=== PATIENT | female | born 1980 | race Caucasian/White ===

== ENCOUNTER 2022-07-26 13:04 | Outpatient (OUT) | payer BC, SELFPAY ==
--- NOTE | 2022-07-26 13:25 | MM_ITS ---
Patient: RENEE REGALADO Exam Date: 07/26/2022 : 1980 Gender:F Ordering : DR Dante Panda . Admission #: [id number] Family : Order #: [id number] CLICK HERE TO VIEW EXAM RADIOLOGY REPORT PROCEDURE: MM TOMOSYNTHESIS SCREENING BI COMPARISON: MG MAMM SCREEN TOOTIE W CAD, 10/13/2019. MAMMO TOOTIE DIAG DIG, 12/24/2010. INDICATIONS: Screening Calculator Name NCI Breast Cancer Risk Assessment Tool 5 Year Breast Cancer Risk 0.70% Lifetime Breast Cancer Risk 8.70% Personal Breast Cancer No Personal Ovarian Cancer No Treatments None Family Cancers Grandfather-paternal with lung cancer at age 70. LOCATION: [facility] BREAST COMPOSITION: Scattered areas fibroglandular density. FINDINGS: DIAGNOSTIC CATEGORY 1--NEGATIVE. RIGHT BREAST: No significant suspicious finding. No significant change has occurred. LEFT BREAST: No significant suspicious finding. No significant change has occurred. RECOMMENDATIONS: ROUTINE MAMMOGRAM AND CLINICAL EVALUATION IN 12 MONTHS. PLEASE NOTE: A NORMAL MAMMOGRAM DOES NOT EXCLUDE THE POSSIBILITY OF BREAST CANCER. A CLINICALLY SUSPICIOUS PALPABLE LUMP SHOULD BE BIOPSIED. Dictated by: Dilan Go M.D. on 07/26/2022 at 15:34 Approved by: Dilan Go M.D. on 07/26/2022 at 15:37
--- NOTE | 2022-07-26 13:57 | MR_ITS ---
[address] [address] Patient Name: RENEE REGALADO MRN: [id number] date: 1980 Sex: F Assigned Patient Location: [facility] Current Patient Location: [facility] Accession/Order Number: [id number] Exam Date: 07/26/2022 14:20 Report Date: 07/26/2022 15:50 At the request of: MERT HARRISON Procedure: MR lumbar spine wo con EXAM: MRI of the lumbar spine without IV gadolinium contrast. REASON FOR EXAM: Lower back pain, pain radiating into lower extremities, lower extremity numbness M51.36 COMPARISON: CT scan dated 08/08/2020 FINDINGS: No lumbar spine fractures, acute malalignment or acute abnormal marrow signal. No spinal canal mass, hematoma or fluid collection. L4-5 degenerative disc changes with disc space narrowing and endplate signal change. L4-5 posterior disc extrusion. No other substantial posterior disc protrusions. Mild grade 1 retrolisthesis of L4 on L5. Moderate L4-5 spinal canal stenosis including stenosis of the lateral recesses bilaterally. No other substantial spinal canal stenosis. Mild left L3-L4 and L4-5 neural foraminal stenoses. Mild right L4-5 neural foraminal stenosis. No other substantial neural foraminal stenoses. Remainder unremarkable. IMPRESSION: L4-L5 disc extrusion causing moderate spinal canal stenosis and stenosis of the lateral recesses. Electronically authenticated by: YOHANA KEARNS Date: 07/26/2022 15:50
== END 2022-07-26 13:05 ==
PROVIDERS: PCP Family Medicine; Visit Provider Family Medicine
DX: Z12.31 Encounter for screening mammogram for malignant neoplasm of breast (principal); M51.36 Other intervertebral disc degeneration, lumbar region; M48.061 Spinal stenosis, lumbar region without neurogenic claudication; Z80.1 Family history of malignant neoplasm of trachea, bronchus and lung
CPT/HCPCS: 72148; 77063; 77067

== ENCOUNTER 2022-08-13 14:09 | Outpatient (OUT) | payer BC, SELFPAY ==
--- NOTE | 2022-08-13 16:08 | CONS_ITS ---
CONSULTATION DATE: ??08/13/2022 TO:? Dante Panda M.D. HISTORY:? Patient presents today complaining of 2-10/10 pain in her lower back, worse on the right side, with right lower extremity discomfort.? She reports the pain as being dull, achy and sharp in character and increased with activities such standing, walking and performing transitioning maneuvers.? She feels most comfortable in the semi-recumbent position. ?She also reports laying in the supine position too long is also uncomfortable.? She denies any change in bowel and bladder habits or new sensorimotor changes in the lower extremities.? MEDICATION:? Current medication list includes Zonegran 50 mg pills, two pills at h.s.; baclofen 10 mg pills, two pills at h.s. and Tylenol p.r.n. EXAM:? Notable for patient having no clinical radiculopathy or myelopathy in the lower extremities.? She had a negative straight leg raise on today?s visit, but she still had a mildly depressed right patellar reflex.? She had very mild myofascial spasm of the lumbar paravertebral muscles. IMPRESSION:? At this time, our impression is patient appears to have chronic pain secondary to improvement in her right L4-L5 radiculopathy.? PLAN;? She reports that she wants to hold off on any surgical consultation at this time.? I have asked her to trial increasing her Zonegran to 50 mg pills, three pills at bedtime as tolerated, and we will see the patient pack in the office in two months? time or sooner if needed. As part of providing excellent, safe, comprehensive care, the following was completed at our patient's visit: 1. A medication reconciliation and review to ensure accurate knowledge of current/active medications, including asking our patients to inform us about any [id number] medications or herbal remedies/nutritional supplements/alternative remedies. 2. A review to specifically ensure our patients have had annual screening for: elevated body mass index (BMI, see intake chart for exact total), tobacco use, screening for depression, and screening for unhealthy alcohol use.? When screening is concerning, patients are provided with education and the specific recommendation to discuss the concerning health issue and treatment options with their primary care provider. ZAIRA
== END 2022-08-13 14:10 ==
PROVIDERS: PCP Family Medicine; Visit Provider Anesthesiology Pain Medicine
DX: M54.16 Radiculopathy, lumbar region (principal); G89.29 Other chronic pain
CPT/HCPCS: G0463

== ENCOUNTER 2022-09-02 11:18 | Emergency (ER) | payer BC, SELFPAY ==
[2022-09-02 11:27] VITALS: BP 155/107; PULSE 95; RESP 18; TEMP 36.9; O2SAT 98; BMI 29.5
--- NOTE | 2022-09-02 11:49 | PC.NURSE ---
pt describes pain to left buttocks down left leg like sciatica, states had MRI's in the past but still don't know what cauases this.
--- NOTE | 2022-09-02 12:07 | ED.GENADUL1 ---
HPI - General Adult General Chief complaint: Extremity Injury, Lower Stated complaint: nerve pain Time Seen by Provider: 09/02/22 11:54 Source: patient Mode of arrival: walk-in Limitations: no limitations History of Present Illness HPI narrative: 42-year-old female presents for pain in her lower back going down her left leg and to a lesser degree the right leg. She's been diagnosed with sciatica and has seen a neurosurgeon in the past who did not recommend surgery. She's been in pain management and she had an MRI recently. She is scheduled to see a new neurosurgeon in a few weeks. The pain is severe and it's gotten worse and now it's going into the left leg. No trauma. No weakness or numbness. No bladder or bowel issues. Related Data Home Medications Medication Instructions Recorded Confirmed baclofen 10 mg tablet 10 mg PO Q12H 09/02/22 09/02/22 citalopram 20 mg tablet 20 mg PO .qhs 09/02/22 09/02/22 zonisamide 50 mg capsule 50 mg PO Q12H 09/02/22 09/02/22 Previous Rx's Medication Instructions Recorded acetaminophen 300 mg-codeine 30 mg 1 tab PO Q6H PRN pain #20 tabs 09/02/22 tablet methocarbamol 500 mg tablet 500 mg PO Q6H PRN pain #20 tabs 09/02/22 prednisone 10 mg tablet See Rx Instructions .Route 09/02/22 .COMPLEX #30 tabs Allergies Allergy/AdvReac Type Severity Reaction Status Date / Time morphine AdvReac Intermediate Verified 09/02/22 11:27 Review of Systems ROS Narrative A ten point review of systems is negative except as noted above. Exam Narrative Exam Narrative: Nurses note and vital signs reviewed and patient is not hypoxic. General: The patient is tearful and appears uncomfortable Skin: Warm, dry, no pallor noted. There is no rash noted. Head: Normocephalic, atraumatic Eye: Normal conjunctiva, no drainage Ears, Nose, Mouth, and Throat: oral mucosa is moist. Nares patent. Cardiovascular: Regular Rate and Rhythm Respiratory: Patient is in no distress, no accessory muscle use, lungs are clear to auscultation, no wheezing, rales or rhonchi Back: non-tender,no bruise or rash GI: nontender Musculoskeletal: The patient has no evidence of calf tenderness, no pitting edema, symmetrical pulses noted bilaterally Neurological: A&O x4, normal speech Psychiatric: Cooperative Constitutional Vital Signs, click to edit/add: Last Vital Signs Temp 98.5 F 09/02/22 11:27 Pulse 69 09/02/22 13:51 Resp 18 09/02/22 11:27 BP 120/80 H 09/02/22 13:40 Pulse Ox 98 09/02/22 11:27 O2 Del Method Room Air 09/02/22 11:27 Course Vital Signs Vital signs: Vital Signs Temperature 98.5 F 09/02/22 11:27 Pulse Rate 95 H 09/02/22 11:27 Respiratory Rate 18 09/02/22 11:27 Blood Pressure 155/107 H 09/02/22 11:27 Pulse Oximetry 98 09/02/22 11:27 Oxygen Delivery Method Room Air 09/02/22 11:27 Temperature 98.5 F 09/02/22 11:27 Pulse Rate 69 09/02/22 13:51 Respiratory Rate 18 09/02/22 11:27 Blood Pressure 120/80 H 09/02/22 13:40 Pulse Oximetry 98 09/02/22 11:27 Oxygen Delivery Method Room Air 09/02/22 11:27 Medical Decision Making MDM Narrative Medical decision making narrative: the patient was given various IV medications and is feeling somewhat improved. She'll be discharged home on Tylenol 3. Options were discussed with her including [place] and she preferred to take Tylenol 3. She'll follow-up with her pain management doctor. Treatment diagnosis and follow-up were discussed thoroughly. recent MRI was reviewed. Differential Diagnosis Differential Diagnosis: sciatica, herniated disc, compression fracture Discharge Plan Discharge Chief Complaint: Extremity Injury, Lower Clinical Impression: Sciatica Patient Disposition: Home, Self-Care Time of Disposition Decision: 14:36 Condition: Good Mode of Transportation: Private Vehicle Prescriptions / Home Meds: New acetaminophen-codeine 300-30 mg tablet 1 tab PO Q6H PRN (Reason: pain) Qty: 20 0RF methocarbamol 500 mg tablet 500 mg PO Q6H PRN (Reason: pain) Qty: 20 0RF prednisone 10 mg tablet See Rx Instructions .ROUTE .COMPLEX Qty: 30 0RF Rx Instructions: four by mouth a day for three days then three by mouth a day for three days then two by mouth daily for three days then one by mouth daily for three days No Action baclofen 10 mg tablet 10 mg PO Q12H citalopram 20 mg tablet 20 mg PO .qhs zonisamide 50 mg capsule 50 mg PO Q12H Instructions: Sciatica (ED) Additional Instructions: follow-up with your pain management doctor Stand Alone Forms: Portal Instructions Referrals: Dante Panda MD [Primary Care Provider] - 1 week
[2022-09-02] MEDS: METHYLPREDNISOLONE SOD SUCC PF 125 MG/2 ML VIAL IVP (12:42)
[2022-09-02] MEDS: LORAZEPAM 2 MG/ML 1 ML VIAL 0.5 MG IV (12:42)
[2022-09-02] MEDS: ORPHENADRINE 60 MG/ 2 ML VIAL IV (12:42)
[2022-09-02] MEDS: KETOROLAC TROMETHAMINE 30 MG/ML VIAL IVP (12:42)
[2022-09-02] MEDS: HYDROMORPHONE HCL 0.5 MG/0.5 ML SYRINGE IV (13:21)
[2022-09-02 13:40] VITALS: BP 120/80
[2022-09-02 13:51] VITALS: PULSE 69
== END 2022-09-02 14:57 | disposition home or self-care (01) ==
PROVIDERS: Emergency Provider Emergency Medicine; PCP Family Medicine
DX: M54.40 Lumbago with sciatica, unspecified side (principal); Z79.899 Other long term (current) drug therapy
CPT/HCPCS: 96374; 96375; 99284; J1170; J2930

== ENCOUNTER 2022-09-10 06:59 | Day surgery (SDC) | payer BC, SELFPAY ==
[2022-09-10 07:08] VITALS: BP 131/85; PULSE 85; RESP 16; TEMP 36.8; O2SAT 97
[2022-09-10] MEDS: LIDOCAINE HCL 2% PF 100 MG/5 ML VIAL 4 ML INJ (07:28)
[2022-09-10] MEDS: METHYLPREDNISOLONE ACETATE 80 MG/ML VIAL INJ (07:28)
[2022-09-10] MEDS: BUPIVACAINE HCL 0.25% PF 25 MG/10 ML VIAL 2 ML INJ (07:28)
[2022-09-10] MEDS: IOHEXOL 240 MG/ML - 10 ML VIAL INJ (07:29)
[2022-09-10] MEDS: 0.9 % SODIUM CHLORIDE 10 ML SYRINGE - SALINE FLUSH 2 ML INJ (07:29)
[2022-09-10 07:32] VITALS: BP 127/89; BP 131/94; PULSE 76; PULSE 77; RESP 20; O2SAT 97
--- NOTE | 2022-09-10 08:13 | P.ON_ITS ---
Date of procedure: 09/10/22 Pre-op diagnosis: LUMBAR RADICULITIS Post-op diagnosis: same Procedure: Epidural injection under fluoroscopic guidance Immediate complications: none Solution used for injection: Marcaine 0.25% 2mL, 2cc Normal saline, Depo-Medrol 80mg Omnipaque 3 mL Anesthesia local 2% lidocaine up to 4ml Timeout process compliant After informed consent obtained. patient brought to the procedure room placed in the prone position. skin overlying the area was prepped and draped in a sterile fashion using betadine. 25 gauge needle used To raise a skin wheel with local anesthetic over the target area identified under fluoroscopy . a 17 gauge Touhy needle Was inserted over the anesthetized area and directed towards the inter- space under fluoroscopic guidance . epidural space was identified with loss of resistance technique to air. needle Tip placement confirmed with injection of contrast solution. Steroid solution was then injected. [place] removed post operatively. Patient transferred to recovery room in stable condition, to be discharged home after meeting Criteria Surgeon: Lalit De Jesus
== END 2022-09-10 07:35 | disposition home or self-care (01) ==
PROVIDERS: PCP Family Medicine; Visit Provider Anesthesiology Pain Medicine
DX: M54.16 Radiculopathy, lumbar region (principal)
CPT/HCPCS: 62323; J1040; Q9966

== ENCOUNTER 2022-09-19 09:00 | Emergency (ER) | payer BC, SELFPAY ==
[2022-09-19 09:03] VITALS: BP 148/90; PULSE 98; RESP 18; TEMP 36.7; O2SAT 96; BMI 29.5
[2022-09-19] MEDS: ONDANSETRON 4 MG RAPDIS TABLET SL (09:32)
--- NOTE | 2022-09-19 09:45 | ED.BACK1 ---
HPI - Back Pain/Injury General Chief Complaint: Back Pain/Injury Stated Complaint: BACK PAIN Time Seen by Provider: 09/19/22 09:28 Source: patient Mode of arrival: Wheelchair History of Present Illness HPI Narrative: Patient states emergency department complaining of low back pain. Patient states she woke up this morning with severe lumbar pain that radiates to bilateral hips. She is also complaining of throbbing to the left lower leg and the lateral aspect. She says she is not had pain like this before. She denies any recent trauma. She has a history of degenerative disc disease disc bulging and was seen by Dr. Cartwright at [facility] And they have advised surgery. The nurse practitioner who saw this patient at the clinic on told the patient that she needed to wait for insurance approval. The patient has been taking OxyContin: At home baclofen and Celebrex along with 1 g of Tylenol. She states she took all this in the morning when she had the pain and it has not helped. She denies any weakness. She denies any urinary, bowel incontinence, retention.She denies any fever, chills, cough, chest pain, shortness of breath. Related Data Home Medications Medication Instructions Recorded Confirmed baclofen 10 mg tablet 10 mg PO Q12H 09/02/22 09/10/22 citalopram 20 mg tablet 20 mg PO .qhs 09/02/22 09/10/22 zonisamide 50 mg capsule 50 mg PO Q12H 09/02/22 09/10/22 amitriptyline 10 mg tablet 20 mg PO .hs 09/10/22 09/10/22 Previous Rx's Medication Instructions Recorded acetaminophen 300 mg-codeine 30 mg 1 tab PO Q6H PRN pain #20 tabs 09/02/22 tablet acetaminophen 300 mg-codeine 30 mg 1 tab PO Q6H PRN pain #20 tabs 09/02/22 tablet methocarbamol 500 mg tablet 500 mg PO Q6H PRN pain #20 tabs 09/02/22 prednisone 10 mg tablet See Rx Instructions .Route 09/02/22 .COMPLEX #30 tabs diazepam 5 mg tablet (Valium) 5 mg PO Q8H PRN muscle spasm 3 09/19/22 days #10 tabs prednisone 10 mg tablet 10 mg PO DAILY #47 tabs 09/19/22 Allergies Allergy/AdvReac Type Severity Reaction Status Date / Time morphine AdvReac Intermediate Verified 09/02/22 11:27 Review of Systems ROS Status of ROS 10 or more systems reviewed and unremarkable except as noted in history and below [facility] Medical History (Updated 09/19/22 @ 15:13 by Cherise Gonzales MD) Surgical History (Updated 09/06/22 @ 14:05 by Arpita Pérez) Exam Narrative Exam Narrative: Nurses notes and vital signs reviewed and patient is not hypoxic. General: Nontoxic, There is some pain, but is not in apparent distress. Skin: Warm, dry, no pallor noted. No Rash Head: Normocephalic, atraumatic. Neck: Supple, non-tender. Eye: Pupils are equal, round and EOMI. No scleral icterus. Ears, Nose, Mouth, and Throat: TM clear, no posterior oropharynx erythema or nasal mucosal hypertrophy, uvula is mid-line Oral mucosa is moist Cardiovascular: Regular Rate and Rhythm without murmur, gallop or rub. Respiratory: No accessory muscle use or respiratory distress. Lungs are clear to auscultation, no wheezing, rales or rhonchi Chest Wall: no tenderness Back: No midline thoracic or lumbar vertebral tenderness. No ecchymosis, erythema, signs of trauma, or infection. No CVA tenderness Musculoskeletal: normal ROM, no calf or popliteal tenderness, no lower extremity edema/swelling GI: Abdomen is soft, non-distended. Normal bowel sounds. No masses appreciated. No tenderness to palpation. No rebound, guarding, or rigidity noted. Neurological: A&O x4. No cranial nerve dysfunction observed. No truncal ataxia. Moves all extremities. Sensation intact. Psychiatric: Cooperative and interactive. Normal mood and affect. Constitutional Vital Signs, click to edit/add: Last Vital Signs Temp 98.0 F 09/19/22 09:03 Pulse 98 H 09/19/22 09:03 Resp 18 09/19/22 09:03 BP 148/90 H 09/19/22 09:03 Pulse Ox 96 09/19/22 09:03 O2 Del Method Room Air 09/19/22 09:03 Course Vital Signs Vital signs: Vital Signs Temperature 98.0 F 09/19/22 09:03 Pulse Rate 98 H 09/19/22 09:03 Respiratory Rate 18 09/19/22 09:03 Blood Pressure 148/90 H 09/19/22 09:03 Pulse Oximetry 96 09/19/22 09:03 Oxygen Delivery Method Room Air 09/19/22 09:03 Temperature 98.0 F 09/19/22 09:03 Pulse Rate 98 H 09/19/22 09:03 Respiratory Rate 18 09/19/22 09:03 Blood Pressure 148/90 H 09/19/22 09:03 Pulse Oximetry 96 09/19/22 09:03 Oxygen Delivery Method Room Air 09/19/22 09:03 MDM - Back Pain/Injury MDM Narrative Medical decision making narrative: Patient was given an injection of Dilaudid, and Norflex. This helped take the edge off the pain the patient stated she was still in a lot of of pain and she is voicing frustration because she does not feel that she can deal with this pain tomorrow. She states her expectation is to be transferred to [facility] to have surgery today. I advised the patient and I cannot guarantee that I can make that expectation however I would speak with the neurosurgeon to see what else we could do besides pain control. The patient was given also Decadron 10 mg IV. She states she just finished a taper of steroids at home. Discussed the patient with the nurse practitioner for Dr. Casiano, Who advised the patient attending physician is in 6 upper surgery. She advised that she can speak with the surgeon when he stumbled with the surgeon and they will devise a plan for the patient. Splint as I can have the patient's pain well controlled with can discharge her home and she will call the patient today after she discusses the plan with the surgeon. She advised she cannot accept the patient in transfer as currently they do not have any beds and It is unlikely that they cannot do surgery today. With the patient and she is very anxious about the pain and wants surgery to be done as soon as possible. I advised the patient I could give her Valium help her relax a little bit more. Patient got up to the bathroom and complained of weakness to the left leg. Stated that it was more numb than earlier. I went to the room I examined the patient she is able to flex the left leg at the hip tenderness. At 2:[address] with [address]'s test patient is lacking and effort. Rectal exam showed good rectal tone and pain at the anal verge. Patient does not have any saddlle paresthesias. Patient was given another milligram of Dilaudid IM. She has gotten up to urinate. There is no clinical indication for an emergent MRI. The patient rested. She later got up and ate. She stated she felt a little bit better but she still tearful because she wants to have her issue resolved. Patient stated the pain is more tolerable than previously. She was given another milligram of Dilaudid IM. She states she felt comfortable with the medications she has at home for pain control and she would like to go home at this time and to that. I put out another phone call to [facility] still no callback at this time. They advised that they would call the patient once the attending is out of surgery. Patient says she will go home and wait for the cough. She will continue with her pain control at home. She is given a prescription for a taper of prednisone and Valium.Patient is advised not to take Valium and baclofen together. Discussed with the patient possibility of admitting her to [facility] for pain control but she stated she felt comfortable with the regimen that she has at home. She does not want to be hospitalized. At this time the patient is without objective evidence of an acute process requiring hospitalization or inpatient management. The patient has remained hemodynamically stable. No additional indication for emergent studies at this time. I answered all questions. Discussed discharge instructions including standard anticipatory guidance and what should prompt a return to the emergency department, including if they get worse are not getting better or develops any new or concerning symptoms. I've given them specific time frame in which to follow-up, and who to follow-up with. The patient demonstrates understanding. Patient is nontoxic and stable for discharge with outpatient follow-up. This note was created with the assistance of a speech recognition program. Although the intention is to generate documents that actually reflects the content of the visit, no guarantees can be provided that every mistake has been identified and corrected by editing. Differential Diagnosis Differential diagnosis: Likely lumbar radiculopathy Lab Data Attestation: I reviewed the patient's lab results. Discharge Plan Discharge Chief Complaint: Back Pain/Injury Clinical Impression: Lumbar radiculopathy Patient Disposition: Home, Self-Care Time of Disposition Decision: 15:02 Condition: Good Mode of Transportation: Private Vehicle Prescriptions / Home Meds: New prednisone 10 mg tablet 10 mg PO DAILY Qty: 47 0RF Rx Instructions: [id number], [id number], [id number], [id number], [id number] diazepam [Valium] 5 mg tablet 5 mg PO Q8H PRN (Reason: muscle spasm) 3 Days Qty: 10 0RF No Action amitriptyline 10 mg tablet 20 mg PO .hs baclofen 10 mg tablet 10 mg PO Q12H citalopram 20 mg tablet 20 mg PO .qhs zonisamide 50 mg capsule 50 mg PO Q12H acetaminophen-codeine 300-30 mg tablet 1 tab PO Q6H PRN (Reason: pain) Qty: 20 0RF methocarbamol 500 mg tablet 500 mg PO Q6H PRN (Reason: pain) Qty: 20 0RF prednisone 10 mg tablet See Rx Instructions .ROUTE .COMPLEX Qty: 30 0RF Rx Instructions: four by mouth a day for three days then three by mouth a day for three days then two by mouth daily for three days then one by mouth daily for three days acetaminophen-codeine 300-30 mg tablet 1 tab PO Q6H PRN (Reason: pain) Qty: 20 0RF Instructions: Lumbar Radiculopathy (ED) Stand Alone Forms: Portal Instructions Referrals: Dante Panda MD [Primary Care Provider] - 1 week
[2022-09-19] MEDS: HYDROMORPHONE HCL 1 MG/ML CARTRIDGE IM ×2 (09:56→13:57)
[2022-09-19] MEDS: DEXAMETHASONE SODIUM PHOSPHATE 10 MG/ML VIAL IM (10:13)
[2022-09-19] MEDS: DIAZEPAM 5 MG TABLET 10 MG PO (10:49)
== END 2022-09-19 15:44 | disposition home or self-care (01) ==
PROVIDERS: Emergency Provider Emergency Medicine; PCP Family Medicine
DX: M54.16 Radiculopathy, lumbar region (principal); Z79.899 Other long term (current) drug therapy
CPT/HCPCS: 96372; 99284; J1100; J1170

== ENCOUNTER 2022-09-20 15:48 | Outpatient (OUT) | payer BC, SELFPAY ==
[2022-09-20 16:21] LABS: Anion Gap 12.4; BUN Creatinine Ratio 14.8; Basophils Percent Auto 0.2 % (0.2-2.0); Calcium 9.6 mg/dL (8.5-10.1); Carbon Dioxide 27.8 mmol/L (21.0-32.0); Chloride 104 mmol/L (98-107); Eosinophils Percent Auto 0.1 % (0.9-7.0); Estimated GFR (African America >60 (>=60); Estimated GFR (Non-African Ame >60 (>=60); Glucose 109 mg/dL (74-106); Hemoglobin 14.8 g/dL (12.0-16.0); Immature Granulocytes Abs Auto 0.09 10^3/uL (0.00-0.03); Immature Granulocytes Pct Auto 0.5 % (0.0-0.5); Lymphocytes Absolute Auto 1.8 10^3/uL (1.2-3.8); Lymphocytes Percent Auto 10.6 % (20.5-60.0); Mean Corpuscular HGB Conc 32.9 g/dL (29.9-35.2); Mean Corpuscular Hemoglobin 32.7 pg (26.7-34.0); Mean Corpuscular Volume 99.3 fL (81.0-99.0); Mean Platelet Volume 10.4 fL (9.5-13.5); Monocytes Absolute Auto 0.9 10^3/uL (0.3-0.8); Monocytes Percent Auto 5.2 % (1.7-12.0); Neutrophils Absolute Auto 14.2 10^3/uL (1.4-6.5); Neutrophils Percent Auto 83.4 % (43.0-75.0); Platelet Count 262 10^3/uL (150-450); Potassium 4.2 mmol/L (3.5-5.1); Red Blood Count 4.53 10^6/uL (4.20-5.40); Red Cell Distribution Width 14.1 % (11.0-15.0); Sodium 140 mmol/L (136-145); White Blood Count 17.1 10^3/uL (4.0-11.0)
[2022-09-20 16:38] LABS: Partial Thromboplastin Time 26.5 sec (22.3-36.2); Prothrombin Time 9.8 sec (9.0-11.6)
[2022-09-20 16:39] LABS: INR <0.93
== END 2022-09-20 15:49 | disposition home or self-care (01) ==
PROVIDERS: PCP Family Medicine
DX: M51.16 Intervertebral disc disorders with radiculopathy, lumbar region (principal)
CPT/HCPCS: 36415; 80048; 85025; 85610; 85730; 87081

== ENCOUNTER 2023-01-05 18:11 | Emergency (ER) | payer BC, SELFPAY ==
[2023-01-05 18:20] VITALS: BP 118/71; PULSE 90; RESP 16; TEMP 36.8; O2SAT 98; BMI 34.5
--- NOTE | 2023-01-05 18:27 | XR_ITS ---
The [address] [address] Patient Name: RENEE REGALADO MRN: [id number] date: 1980 Sex: F Assigned Patient Location: ED.MAIN Current Patient Location: ED.MAIN Accession/Order Number: [id number] Exam Date: 01/05/2023 19:25 Report Date: 01/05/2023 20:07 At the request of: OLIVER ULRICH Procedure: XR hip RT 2V w/ pelvis IMAGES REVIEWED: XR hip RT 2V w/ pelvis COMPARISON: 08/08/2020. CLINICAL INDICATION: right hip pain FINDINGS/IMPRESSION: 1. No radiographic evidence of acute osseous abnormality of the right hip. 2. Transitional lumbosacral anatomy on the left. 3. Minimal degenerative change right hip. Electronically authenticated by: GIORGI STALLWORTH Date: 01/05/2023 20:07
[2023-01-05] MEDS: KETOROLAC TROMETHAMINE 60 MG/2 ML VIAL IM (20:04)
--- NOTE | 2023-01-05 20:11 | ED.GENADUL1 ---
HPI - General Adult General Chief complaint: Extremity Injury, Lower Stated complaint: Lower INJURY Time Seen by Provider: 01/05/23 18:27 Source: patient Mode of arrival: Wheelchair Limitations: no limitations History of Present Illness HPI narrative: 42-year-old female presents of right hip pain. Patient was moving a refrigerator home and felt a pop in the right hip. She was unable to bear reading initially. She has pain to the right groin, pelvic area. No acute leg shortening. She is able to lift and rotate her right lower extremity. She is able to abduct and adduct. No previous trauma to this extremity in the past. Related Data Home Medications Medication Instructions Recorded Confirmed baclofen 10 mg tablet 10 mg PO Q12H PRN muscle spasm 09/02/22 01/05/23 citalopram 20 mg tablet 20 mg PO .qhs 09/02/22 01/05/23 amitriptyline 10 mg tablet 20 mg PO .hs 09/10/22 01/05/23 Allergies Allergy/AdvReac Type Severity Reaction Status Date / Time morphine AdvReac Intermediate Verified 09/02/22 11:27 Review of Systems ROS Narrative All Systems are negative except as noted/marked.All systems reviewed and otherwise negative [facility] Medical History (Updated 01/05/23 @ 19:44 by Shannan Martinez) Former smoker ?Z87.891 - Personal history of nicotine dependence (ICD-10) Kidney stone ?N20.0 - Calculus of kidney (ICD-10) Low back pain ?M54.50 - Low back pain, unspecified (ICD-10) Numbness and tingling ?R20.0 - Anesthesia of skin (ICD-10) ?R20.2 - Paresthesia of skin (ICD-10) Obesity ?E66.9 - Obesity, unspecified (ICD-10) Upper back pain ?M54.9 - Dorsalgia, unspecified (ICD-10) Surgical History (Updated 09/06/22 @ 14:05 by Arpita Pérez) H/O cystoscopy ?Z98.890 - Other specified postprocedural states (ICD-10) H/O decompression of ulnar nerve ?Z98.890 - Other specified postprocedural states (ICD-10) H/O laparoscopy ?Z98.890 - Other specified postprocedural states (ICD-10) H/O: hysterectomy ?Z90.710 - Acquired absence of both cervix and uterus (ICD-10) Social History Smoking status: Current every day smoker Exam Narrative Exam Narrative: Nurses note and vital signs reviewed and patient is not hypoxic. General: The patient appears well and in no apparent distress. Patient is resting comfortably on cart. Skin: Warm, dry, no pallor noted. There is no rash noted. Head: Normocephalic, atraumatic Eye: Normal conjunctiva, no drainage, EOMI. PERRL Ears, Nose, Mouth, and Throat: oral mucosa is moist. Nares patent. Mouth without vesicles. Ear canals patent. Tm's without Erythema Musculoskeletal: Hip tenderness, full range of motion including abduction, abduction, elevation. Neurovascular intact. No leg shortening. Neurological: A&O x4, normal speech Psychiatric: Cooperative Constitutional Vital Signs, click to edit/add: Last Vital Signs Temp 98.3 F 01/05/23 18:20 Pulse 90 01/05/23 18:20 Resp 16 01/05/23 18:20 BP 118/71 01/05/23 18:20 Pulse Ox 98 01/05/23 18:20 O2 Del Method Room Air 01/05/23 18:20 Course Vital Signs Vital signs: Vital Signs Temperature 98.3 F 01/05/23 18:20 Pulse Rate 90 01/05/23 18:20 Respiratory Rate 16 01/05/23 18:20 Blood Pressure 118/71 01/05/23 18:20 Pulse Oximetry 98 01/05/23 18:20 Oxygen Delivery Method Room Air 01/05/23 18:20 Temperature 98.3 F 01/05/23 18:20 Pulse Rate 90 01/05/23 18:20 Respiratory Rate 16 01/05/23 18:20 Blood Pressure 118/71 01/05/23 18:20 Pulse Oximetry 98 01/05/23 18:20 Oxygen Delivery Method Room Air 01/05/23 18:20 Medical Decision Making MDM Narrative Medical decision making narrative: She presented here with right hip pain. Medicated with Toradol x-ray showed no acute deformity or fracture. Patient told to use rest ice elevation. She denied the need for a work note. She'll be discharged home with hip sprain Medical Records Medical records reviewed: Yes I reviewed the patient's medical records Imaging Data hip: Radiologist's impression: Patient Name: RENEE REGALADO MRN: [id number] date: 1980 Sex: F Assigned Patient Location: ED.MAIN Current Patient Location: ED.MAIN Accession/Order Number: [id number] Exam Date: 01/05/2023 19:25 Report Date: 01/05/2023 20:07 At the request of: OLIVER ULRICH Procedure: XR hip RT 2V w/ pelvis IMAGES REVIEWED: XR hip RT 2V w/ pelvis COMPARISON: 08/08/2020. CLINICAL INDICATION: right hip pain FINDINGS/IMPRESSION: 1. No radiographic evidence of acute osseous abnormality of the right hip. 2. Transitional lumbosacral anatomy on the left. 3. Minimal degenerative change right hip. Electronically authenticated by: GIORGI STALLWORTH Date: 01/05/2023 20:07 Discharge Plan Discharge Chief Complaint: Extremity Injury, Lower Clinical Impression: Hip sprain Patient Disposition: Home, Self-Care Time of Disposition Decision: 20:00 Condition: Good Prescriptions / Home Meds: No Action amitriptyline 10 mg tablet 20 mg PO .hs baclofen 10 mg tablet 10 mg PO Q12H PRN (Reason: muscle spasm) citalopram 20 mg tablet 20 mg PO .qhs Instructions: Hip Sprain (ED), P.R.I.C.E. Treatment (ED) Stand Alone Forms: Portal Instructions Referrals: Dante Panda MD [Primary Care Provider] - 1 week Discharge Date/Time: 01/05/23 20:25
== END 2023-01-05 20:25 | disposition home or self-care (01) ==
PROVIDERS: Emergency Provider Emergency Medicine; PCP Family Medicine
DX: S73.101A Unspecified sprain of right hip, initial encounter (principal); X50.9XXA Other and unspecified overexertion or strenuous movements or postures, initial encounter; Z79.899 Other long term (current) drug therapy; Z90.710 Acquired absence of both cervix and uterus; F17.210 Nicotine dependence, cigarettes, uncomplicated; Z98.890 Other specified postprocedural states; N20.0 Calculus of kidney; E66.9 Obesity, unspecified; Z68.34 Body mass index [BMI] 34.0-34.9, adult
CPT/HCPCS: 73502; 96372; 99284

== ENCOUNTER 2023-01-26 20:01 | Emergency (ER) | payer BC, SELFPAY ==
[2023-01-26 20:06] VITALS: BP 123/79; PULSE 97; RESP 15; TEMP 36.7; O2SAT 96; BMI 32.4
--- NOTE | 2023-01-26 20:22 | XR_ITS ---
The [address] [address] Patient Name: RENEE REGALADO MRN: [id number] date: 1980 Sex: F Assigned Patient Location: ER Current Patient Location: ER Accession/Order Number: [id number] Exam Date: 01/26/2023 20:30 Report Date: 01/26/2023 20:50 At the request of: FATMATA ZHANG Procedure: XR hip LT 2V w/ pelvis EXAM: XR hip LT 2V w/ pelvis HISTORY: Left hip pain COMPARISON: None. TECHNIQUE: AP pelvis and 2 views of the left hip FINDINGS: No osseous lesion, fracture, dislocation or subluxation. Joint spaces are normal. No visualized effusion. No visualized soft tissue edema. XR/XR hip LT 2V w/ pelvis IMPRESSION: Normal x-rays Electronically authenticated by: JENNIFER THOMAS Date: 01/26/2023 20:50
--- NOTE | 2023-01-26 20:24 | PC.NURSE ---
Pt was walkinglast when she felt a po in the back oofher left [facility]. She now has a large hematomato left inner thigh and muscle stiffness.
--- NOTE | 2023-01-26 20:25 | ED_ITS ---
HPI - Extremity Injury (Lower) General Chief Complaint: Extremity Injury, Lower Stated Complaint: Lower Extremity Pain Time Seen by Provider: 01/26/23 20:02 Source: patient and family Mode of arrival: walk-in Limitations: no limitations History of Present Illness HPI Narrative: patient is a 43-year-old female presents to the Emergency Room with concerns of bruising to the left posterior medial thigh. 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 Patient admits to some pain with initial symptom, but continued to work through the day. She noticed increased swelling throughout and Friday and after being assessed by her son who is a massage therapist recommended evaluation with bruising developing in the medial thigh. 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 Patient appears no distress. .. pertinent history of recent back surgery at [facility] patient denies fall, she denies pain to her knee, sotelo or ankle.patient denies any blood thinner use MD complaint: Reports hip injury, thigh injury and leg injury Injury: Left: hip Type of Injury: Reports other (Static load while walking) Place: Reports work Severity: mild Relieving factors: Denies nothing Exacerbating factors: Denies nothing Context: Denies fall Associated symptoms: Reports snap/pop sensation and swelling Treatments prior to arrival: Reports cold therapy Related Data Home Medications Medication Instructions Recorded Confirmed baclofen 10 mg tablet 10 mg PO Q12H PRN muscle spasm 09/02/22 01/26/23 citalopram 20 mg tablet 20 mg PO .qhs 09/02/22 01/26/23 amitriptyline 10 mg tablet 20 mg PO .hs 09/10/22 01/05/23 amitriptyline 25 mg tablet 25 mg 01/26/23 Allergies Allergy/AdvReac Type Severity Reaction Status Date / Time morphine AdvReac Intermediate Verified 01/26/23 20:10 Review of Systems ROS Constitutional Denies: fever or chills Eyes Denies: change in vision Ears, nose, mouth, and throat Denies: throat pain Cardiovascular Denies: chest pain Respiratory Denies: shortness of breath Gastrointestinal Denies: abdominal pain or nausea Musculoskeletal Reports: extremity pain and extremity swelling; Denies: back pain, neck pain or joint pain Integumentary/Breast Denies: rash or itching Neurological Denies: headache PFSH PFSH Medical History (Updated 01/26/23 @ 20:38 by LINN Mcmahon) Former smoker ?Z87.891 - Personal history of nicotine dependence (ICD-10) Kidney stone ?N20.0 - Calculus of kidney (ICD-10) Low back pain ?M54.50 - Low back pain, unspecified (ICD-10) Numbness and tingling ?R20.0 - Anesthesia of skin (ICD-10) ?R20.2 - Paresthesia of skin (ICD-10) Obesity ?E66.9 - Obesity, unspecified (ICD-10) Upper back pain ?M54.9 - Dorsalgia, unspecified (ICD-10) Surgical History (Updated 09/06/22 @ 14:05 by Arpita Pérez) H/O cystoscopy ?Z98.890 - Other specified postprocedural states (ICD-10) H/O decompression of ulnar nerve ?Z98.890 - Other specified postprocedural states (ICD-10) H/O laparoscopy ?Z98.890 - Other specified postprocedural states (ICD-10) H/O: hysterectomy ?Z90.710 - Acquired absence of both cervix and uterus (ICD-10) Social History Smoking status: Current every day smoker Exam Narrative Exam Narrative: Vital signs reviewed and nurse's notes. The patient is not hypoxic. General: Alert, no acute distress, patient resting comfortably Skin: warm, intact, no pallor noted Head: Normocephalic, atraumatic Eye: Normal conjunctiva, no exudates Respiratory: No acute distress, lungs CTA Musculoskeletal: No evidence of deformity to the left hip or knee. There is moderate amount of swelling posterior medial thigh with notable ecchymosis. Dependent fashion consistent with likely proximal hamstring rupture, no obvious deformity on inspection or gentle stressing.. There is no ecchymosis in the lower leg.. No erythema or warmth noted. DP and PT pulses are intact 2+. Normal sensation, normal capillary refill less than 2 seconds. There is no cyanosis or mottling noted. The patient has tenderness to initial tuberosity on the left thigh, compartments are soft,. The patient has no laxity with varus or valgus stressing. The patient has negative anterior drawer and knee. The patient was able to flex and extend at the hip and knee, straight leg raise intact, minimal discomfort. Patient was able to extend leg off the cart without difficulty. No tenderness noted to the 5th MT, midfoot, ankle or proximal fibular area. There is no pain with calcaneal squeeze, achilles tendon is intact and no defect is palpated. The patient has no pelvic instability. The patient has no shortening or rotation noted to the bilateral lower extremities. Neurological: alert and orient x4, normal sensory and motor observed. Psychiatric: Cooperative Constitutional Vital Signs, click to edit/add: Last Vital Signs Temp 98.1 F 01/26/23 20:06 Pulse 97 H 01/26/23 20:06 Resp 15 01/26/23 20:06 BP 123/79 01/26/23 20:06 Pulse Ox 96 01/26/23 20:06 O2 Del Method Room Air 01/26/23 20:06 Course Vital Signs Vital signs: Vital Signs Temperature 98.1 F 01/26/23 20:06 Pulse Rate 97 H 01/26/23 20:06 Respiratory Rate 15 01/26/23 20:06 Blood Pressure 123/79 01/26/23 20:06 Pulse Oximetry 96 01/26/23 20:06 Oxygen Delivery Method Room Air 01/26/23 20:06 Temperature 98.1 F 01/26/23 20:06 Pulse Rate 97 H 01/26/23 20:06 Respiratory Rate 15 01/26/23 20:06 Blood Pressure 123/79 01/26/23 20:06 Pulse Oximetry 96 01/26/23 20:06 Oxygen Delivery Method Room Air 01/26/23 20:06 MDM - Extremity Injury (Lower) MDM Narrative Medical decision making narrative: clinical exam consistent with hamstring strain and likely ruptured given the amount of bruising. Unable to clarify if it is a total tear partial tear and recommended follow-up to orthopedics. The patient is given an appointment tomorrow with Dr. Rubi at 8:45 am. Patient aware injury occurred last Friday and there is a time factor involved if surgery is needed. patient appears to be functioning well, she declines a need for crutches. She does not describe a history of any aggressive activities. We discussed focusing on ice and elevation. X-ray performed, discussed. Patient aware that there may be a discussion for MRI if clinically indicated versus observation and possible therapy with orthopedics follow-up tomorrow. Patient was. Appreciated The patient is to followup with Dr. Rubi tomorrow or to return to the emergency department should any of the signs or symptoms worsen or new symptoms develop. Patient had questions answered. The patient agrees with the following Diagnosis and Treatment plan and the patient will be discharged home. Discharge Plan Discharge Chief Complaint: Extremity Injury, Lower Clinical Impression: Left hamstring injury Patient Disposition: Home, Self-Care Time of Disposition Decision: 20:37 Condition: Good Mode of Transportation: Private Vehicle Prescriptions / Home Meds: No Action amitriptyline 10 mg tablet 20 mg PO .hs amitriptyline 25 mg tablet 25 mg baclofen 10 mg tablet 10 mg PO Q12H PRN (Reason: muscle spasm) citalopram 20 mg tablet 20 mg PO .qhs Instructions: Hamstring Injury (ED) Stand Alone Forms: Portal Instructions Referrals: Dante Panda MD [Primary Care Provider] - 1 week Dilan Rubi MD [Physician] - 01/27/23 8:45 am Discharge Date/Time: 01/26/23 20:57
== END 2023-01-26 20:57 | disposition home or self-care (01) ==
PROVIDERS: Emergency Provider Internal Medicine; PCP Family Medicine
DX: S79.822A Other specified injuries of left thigh, initial encounter (principal); X58.XXXA Exposure to other specified factors, initial encounter; E66.9 Obesity, unspecified; Z87.442 Personal history of urinary calculi; Z90.710 Acquired absence of both cervix and uterus; F17.210 Nicotine dependence, cigarettes, uncomplicated; Z68.32 Body mass index [BMI] 32.0-32.9, adult
CPT/HCPCS: 73502; 99283

== ENCOUNTER 2023-02-04 17:54 | Outpatient (OUT) | payer BC, SELFPAY ==
--- NOTE | 2023-02-04 | US_ITS ---
The [place] [address] Patient Name: RENEE REGALADO MRN: [id number] date: 1980 Sex: F Assigned Patient Location: Current Patient Location: Accession/Order Number: [id number] Exam Date: 02/04/2023 18:07 Report Date: 02/05/2023 07:24 At the request of: MERT HARRISON Procedure: US venous doppler LE LT EXAMINATION: US venous doppler LE LT HISTORY: M79.605; left leg pain, R/O DVT COMPARISON: No relevant comparison available. FINDINGS: REGION: Left lower extremity THROMBI: None. COMPRESSIBILITY: Normal compressibility. FLOW: Normal waveform and antegrade flow between 5 and 20 cm/s. OTHER: None. US/US venous doppler LE LT IMPRESSION: 1. No deep vein thrombus within the left lower extremity. Electronically authenticated by: DENG HUGHES Date: 02/05/2023 07:24
== END 2023-02-04 17:55 | disposition home or self-care (01) ==
LOC: US 17:54
PROVIDERS: PCP Family Medicine; Visit Provider Family Medicine
DX: M79.605 Pain in left leg (principal)
CPT/HCPCS: 93971

== ENCOUNTER 2023-07-23 08:35 | Outpatient (OUT) | payer BC, SELFPAY ==
--- OUTSIDE RECORDS SUMMARY | 2023-07-23 08:53 | XMS_ITS ---
Patient Summarization (C-CDA 2.1 CCD) Created on: July 23, 2023 SABINE RENEE Darlene : 1980 Sex: Female Author Organization Sample organization Care Team Providers Care Farm Management Adviser Name Role Phone NUSRAT LIAO Admitting Unavailable YANNI, NUSRAT Attending Unavailable YANNI, NUSRAT Consulting Unavailable JERRELL, DR CUEVAS Primary Care Unavailable LAKSHMIPATHY ., NARENDTREVORATH Attending Katie vailable JERRELL, DR CUEVAS Primary Care Unavailable LAKSHMIPATHY ., NARENDRANATH Consulting Katie vailable LAKSHMIPATHY ., NARENDRANATH Admitting Katie vailable LAKSHMIPATHY ., MERVAT Attending Katie vailable HUNTER, DR MERT Villaseñor Primary Care Unavailable LAKSHMIPATHY ., NARENDRANATH Consulting Katie vailable LAKSHMIPATHY ., BENOITATH Admitting Katie vailable ARCHIBALD ., DR GUILLERMO Kong Admitting Unavailable HEMMER, DR SU Etienne Referring Unavailable ARCHBIALD ., DR GUILLERMO Kong Attending Unavailable JERRELL, DR CUEVAS Primary Care Unavailable LAKSHMIPATHY ., NARHALIMAATH Admitting Katie vailable NADERER, DR MERT Villaseñor Primary Care Unavailable LAKSHMIPATHY ., NARHALIMAATH Attending Katie vailable LAKSHMIPATHY ., NARHALIMAATH Consulting Katie vailable NADCYNTHIA, DR MERT Villaseñor Attending Unavailable NADCYNTHIA, DR MERT Villaseñor Consulting Unavailable HUNTER, DR MERT Villaseñor Primary Care Unavailable HUNTER, DR MERT Villaseñor Admitting Unavailable HUNTER, DR MERT Villaseñor Consulting Unavailable HUNTER, DR MERT Villaseñor Primary Care Unavailable NADERER, DR MERT Villaseñor Admitting Unavailable NADERENestor, DR MERT Villaseñor Attending Unavailable OVITT, SALOME Referring Unavailable OVITT, SALOME Referring Unavailable CAROL, JENNY Attending Unavailable CAROL, JENNY Admitting Unavailable OVITT, SALOME Attending Unavailable OVITT, SALOME Attending Unavailable CAROL, JENNY Referring Unavailable NADERERMERT Attending Unavailable Allergies Allergy Classification Reported Allergen(s) Allergy Type Date of Onset Reaction(s) Facility (2 sources) Morphine; Translations: [MORPHINE] Drug Allergy [facility] Repository (1 source) ALLERGIES NOT ON FILE; Translations: [ALLERGIES NOT ON FILE] Propensity to adverse reactions (disorder) [facility] Repository Encounters Encounter Date Encounter Type Care Provider Facility Start: 07-02-2023 End: 07-02-2023 ambulatory MERT HARRISON Not Available Start: 10-08-2022 End: 10-08-2022 ambulatory [facility] Start: 09-25-2022 End: 09-26-2022 ambulatory [facility] Start: 09-25-2022 End: 09-26-2022 Evaluation and management of inpatient [facility] Start: 09-12-2022 End: 09-13-2022 ambulatory [facility] Start: 09-12-2022 End: 09-12-2022 ambulatory [facility] Start: 09-06-2022 End: 09-07-2022 ambulatory [facility] Start: 07-11-2022 ambulatory NARENDRANATH LAKSHMIPATHY . Facility:[facility] Start: 07-09-2022 End: 07-09-2022 ambulatory NARENDRANATH LAKSHMIPATHY . Facility:[facility] Start: 07-04-2022 End: 07-05-[address] MRET HARRISON Facility:[facility] Start: 06-23-2022 Encounter for genera l adult medical examination without abnormal findings DR MERT HARRISON [facility] Start: 06-19-2022 End: 06-20-[address] MERT HARRISON Facility:[facility] Start: 06-19-2022 End: 06-20-2022 Encounter for general adult medical examination without abnormal findings DR MERT HARRISON Facility:[facility] Start: 04-18-2022 End: 04-19-2022 ambulatory NARENDRANATH LAKSHMIPATHY . Facility:[facility] Start: 04-16-[address] GUILLERMO ARCHIBALD . Faci lity:[facility] Start: 03-22-2022 End: 03-23-2022 ambulatory NUSRAT LIAO Facility:[facility] Payers Date Payer Category Payer Unknown [id number] 2.16.84 [id number] 1980 Unknown [id number] 2.16.84 [id number] 1980 Unknown [id number] 2.16.84 [id number] 1980 Unknown [id number] 2.16.84 [id number] 1980 Unknown [id number] 2.16.84 [id number] 1980 Unknown [id number] 2.16.84 [id number] 1980 Unknown [id number] 2.16.84 [id number] 1961 Self-pay [id number] 1961 Unknown [id number] Unknown [id number] 2.16.84 [id number] Problems Active Problems Problem Classification Problem Date Documented Date Episodic/Chronic Other nervous system disorders (2 sources) Other acute postprocedural pain; Translations: [Other acute postprocedural pain] Onset: 09-25-2022 Episodic Other non-traumatic joint disorders (4 sources) Pain in unspecified joint; Translations: [PAIN IN UNSPECIFIED JOINT] Onset: 07-04-2022 Episodic Residual codes; unclassified (2 sources) Pain, unspecified; Translations: [Pain, unspecified] Onset: 09-25-2022 Episodic Spondylosis; intervertebral disc disorders; other back problems (3 sources) Spondylosis without myelopathy or radiculopathy, lumbosacral region; Translations: [Other intervertebral disc degeneration, lumbar region] Onset: 04-24-2022 Chronic Spondylosis; intervertebral disc disorders; other back problems (5 sources) Muscle spasm of back; Translations: [Intervertebral disc disorders with radiculopathy, lumbar region] Onset: 04-24-2022 Episodic Unclassified (2 sources) LOW BACK PAIN, UNSPECIFIED; Translations: [LOW BACK PAIN, UNSPECIFIED] Onset: 04-24-2022 Past or Other Problems Problem Classification Problem Date Documented Da te Episodic/Chronic Administrative/social admission (4 sources) Encounter for pre-employment examination; Translations: [ENCOUNTER FOR PRE-EMPLOYMENT EXAM] Onset: 03-22-2022 Episodic Unclassified (1 source) LOW BACK PAIN, UNSPECIFIED; Translations: [LOW BACK PAIN, UNSPECIFIED] Onset: 04-18-2022 Results Test Name Value Interpretation Reference Range Facility Office Visiton 10-08-2022 Follow-up visit [id number] Renee Kim 1980 F Date Provider Department Center 10/08/2022 SALOME GÓMEZ [facility] Second Fl Family History Problem Relation Age of Onset Hypertension Mother Hyperlipidemia Mother Colon polyps Mother Comments: Hx of colon polyps Hypertension Father Hyperlipidemia Father Lung cancer Maternal Grandfather Diabetes Maternal Grandfather Thyroid disease Other Comments: siblings Fibromyalgia Other Comments: siblings Family Status - Relation Status Age at Mother Father Maternal Grandfather Other Level of Service:41337 [place] POSTOP FOLLOW UP VISIT RELATED TO ORIGINAL PX Reason for Visit and Comments: Post-op [483] - Patient is here for a post op s/p 09/25/22 L4 laminotomies with L4-L5 discectomy. Patient had pain on last Friday. On Friday she stopped the medication zonisamide and the pain was gone by Friday. She was able to get out of bed w/o being in no pain. Normal [facility] 30on 09-26-2022 30 The patient is Moderately Stable - Low risk of patient condition declining or worsening The patient's goals for the shift include rest The clinical goals for the shift include vss Normal [facility] DSon 09-26-2022 DS Admission Admitted 09/25/2022 for Lumbar disc prolapse with compress* Discharge Diagnosis Lumbar disc prolapse with compression radiculopathy Discharge Disposition Home or Self Care Discharge Medications Your medication list START taking these medications Instructions Last Dose Given Next Dose Due oxyCODONE-acetaminop hen 5-325 mg tablet Commonly known as: Percocet Take 1 tablet by mouth every 6 (six) hours if needed for severe pain (8-10 pain score) (pain) for up to 10 days. CONTINUE taking these medications Instructions Last Dose Given Next Dose Due acetaminophen 500 mg tablet Commonly known as: Tylenol amitriptyline 10 mg tablet Commonly known as: Elavil baclofen 10 mg tablet Commonly known as: Lioresal citalopram 20 mg tablet Commonly known as: CeleXA zonisamide 50 mg capsule Commonly known as: Zonegran STOP taking these medications acetaminophen-codein e 300-30 mg tablet Commonly known as: Tylenol w/ Codeine #3 chlorhexidine 4 % external liquid Commonly known as: Hibiclens predniSONE 10 mg tablet Commonly known as: Deltasone Where to Get Your Medications These medications were sent to [facility] - [address] [place] [address] [address] [facility] [place] [address], [facility] [id number] oxyCODONE-acetaminop hen 5-325 mg tablet Activity Normal activity as tolerated No driving until seen in clinic for follow-up. No strenuous activity Showering instructions: It is OK to shower as normal on the day after surgery. Do not submerge the wounds in water such as in bathtubs, hot tubs, or swimming pools. OK to return to youth worker if not taking narcotic medications. Diet Continue on the same type of diet and foods as you were eating before your admission. Drink plenty of water. Allergies Morphine Hospital Course Ms. Barnett is a 42-year-old woman with a history of relatively mild chronic low back pain over the past 3 to 5 years and a more recent history of pain radiating into the left lower extremity. She had suffered some pain in the right leg, but over the past several weeks to months the pain had become much more severe in the left lower extremity in approximately L5 distribution. MRI imaging demonstrated a large central disc protrusion at the L4-5 level with likely impingement upon the bilateral nerve roots. She had attempted multiple conservative therapies including physical therapy, injections, narcotic medications, amitriptyline, baclofen, citalopram, and steroids. Despite these interventions, her pain persisted interfered greatly in her activities of daily living. Based on these findings, she was offered bilateral laminotomies for an L4-5 discectomy and bilateral foraminotomies. After discussion of the surgery itself, its risk, its benefits, and the alternatives, she elected to proceed andinformed consent was obtained. The patient was admitted and taken directly to the operating theater. She underwent bilateral L4 laminotomies with bilateral foraminotomies and discectomy. She tolerated the procedure well. Postoperatively, she was transferred to the general surgical floor. She noted almost immediate relief in left lower extremity pain, although she did note some numbness in the same distribution as the pain after surgery. Her activity and diet were advanced. By the morning of the first postoperative day, she was ambulating, tolerating p.o., voiding, and her pain was under good control. She was meeting discharge criteria and anxious to return home. Pertinent Physical Exam At Time of Discharge General: Awake, alert, NAD. Well groomed. HEENT: Normocephalic, atraumatic. Neck supple without lymphadenopathy. Heart: Regular rate and rhythm. Lungs: Clear to auscultation bilaterally. Abdomen: Soft, non-tender, non-distended. Bowel sounds present. Extremities: No cyanosis or edema. No noted deformities. Back: Wound clean, dry, intact with dermabond in place. Neurologic: Appropriate affect during exam. Normal fluency and prosody of speech. Content appropriate and higher function appears intact. CN II-XII grossly intact. Palate elevates symmetrically. Motor 5/5 throughout except 4/5 in L DF / PF. Sensation intact to light touch throughout. FTN intact. Lab Results Labs Reviewed POCT GLUCOSE METER UNSOLICITED RESULTS - Abnormal Result Value Glucose POC 117 (*) Narrative: Waived Testing in the ED is performed under the ED CLIA certificate #[id number]. TYPE AND SCREEN ABO Grouping O Rh Type POS Ab Scrn NEG Nutrition Screen Issues Requiring Follow-Up None. Outpatient Follow-Up Future Appointments Date Time Provider Department Center 10/08/2022 2:00 PM Salome Farmer NP [facility] Second Fl Test Results Pending At Discharge Normal [facility] HPon 09-25-2022 HP H&P reviewed. The patient was examined and there are no changes to the H&P. Normal [facility] NURSNOTEon 09-25-2022 NURSNOTE Patient complaining of numbness in her left leg from the knee down. Dr. Snell notified, no orders received at this time. Normal [facility] OPNOTEon 09-25-2022 OPNOTE L4 laminotomies with L4-L5 discectomy Operative Note Date: 09/25/2022 Location: [facility] Name: Renee Kim, : 1980, Diagnosis Pre-op Diagnosis * Lumbar disc prolapse with compression radiculopathy [M51.16] Post-op Diagnosis * Lumbar disc prolapse with compression radiculopathy [M51.16] Procedures L4 laminotomies with L4-L5 discectomy [address] - [place] LAMINECTOMY W/O FFD / VERT SEG LUMBAR Bilateral L4 laminotomies for bilateral L4-5 discectomy and foraminotomies. Surgeons * Jenny Snell - Primary Procedure Summary Anesthesia: General ASA: II Estimated Blood Loss: 37 mL Drains: * None in log * Staff: Assistant Baseball Coach: Murray Xavier RN Relief Assistant Baseball Coach: Juliana Cho RN Relief Scrub: Lisy Parikh CST Scrub Person: Yudi White CST Thread Checker: Brandon Vidal CSA Indications: Renee Kim is an 42 y.o. female who is having surgery for Lumbar disc prolapse with compression radiculopathy [M51.16]. She has recently suffered from back pain, as well as some pain radiating into the right lower extremity. Over time her right lower extremity pain improved but she developed much more severe left lower extremity pain in approximately L5 distribution. MRI imaging demonstrated a large central disc protrusion at the L4-5 level with likely impingement upon the bilateral traversing nerve roots. Based upon these findings and her failure to respond to conservative therapies, the patient was offered bilateral L4 laminotomies for bilateral L4-5 discectomy and foraminotomies. After discussion of the risks, benefits, and alternatives, she elected to proceed and informed consent was obtained. Procedure Details: The patient was brought to the operating theater. General endotracheal anesthesia was induced without difficulty. Adequate vascular access was ensured. No Goodson catheter was placed. The patient was rolled into the prone position on a waiting Ernst table. Care was taken to ensure that all pressure points were padded adequately. The proposed site of surgery in the low lumbar midline was identified. The site was marked, prepped, and draped in the normal sterile fashion. A timeout was performed confirming the correct patient, procedure, and site. It was ensured the preoperative antibiotics been delivered. The skin at the proposed site of surgery was infiltrated with 1/4% Marcaine with 1 to 200,000 units of epinephrine. A radiopaque marking needle was placed within the skin of the lower lumbar midline and intraoperative radiographs were obtained confirming the correct level of exposure. The radiopaque marking needle was removed. The skin was opened in the midline with a #10 blade. Dissection was carried down sharply through the superficial tissue. Monopolar cautery was used to extend the plane to dissection to the deep lumbar fascia. The lumbar fascia was opened in the midline with monopolar cautery. Subperiosteal dissection was carried down the lateral faces of the L4 and superior portion of the L5 spinous processes. Dissection was carried laterally to the level of the facet joints. Care was taken not to disrupt the facet capsules. Additional intraoperative x-ray images were obtained confirming the correct level of exposure. A self-retaining retractor system was added to aid in exposure. The wound was irrigated thoroughly and hemostasis was ensured. Attention was then turned to bilateral L4 laminotomies. The inferior margin of the L4 lamina was identified bilaterally. A #3 and then #4 Kerrison rongeur were introduced beneath the margin of the L4 lamina and multiple bites were taken until a laminotomy defect had been created bilaterally. Beneath, ligamentous structures including the ligamentum flavum could be identified. These were resected piece petersen bilaterally. Beneath, the thecal sac and the axilla of the L5 nerve root could be identified. Attention was first turned to the left laminotomy defect. Here a Champion 4 explore was passed lateral to the thecal sac and the thecal sac and axilla of the nerve root was mobilized medially. Immediately beneath, a free fragment of disc material could be identified in the epidural space. This was grasped with a pituitary rongeur andextracted. A nerve root retractor was introduced. A #15 blade was used to open a rectangular opening in the posterior lateral annulus of the protruding L4-5 disc. A combination of pituitary rongeur and down pushing curette was used to mobilize disc material and remove it. It was found that the disc space was highly collapsed. The majority of the disc material was subligamentous within the canal. After mobilization and removal of the disc material Ayah explorer could be passed ventral to the thecal sac without evidence of substantial stenosis, although a portion of disc material with some stenosis could be palpated on the contralateral side of the spinal canal. A #3 Kerrison (more content not included)... Normal [facility] OPNOTE Date: 09/25/2022 Location: [facility] OR Name: Renee Kim, : 1980, Diagnosis Pre-op Diagnosis * Lumbar disc prolapse with compression radiculopathy [M51.16] Post-op Diagnosis * Lumbar disc prolapse with compression radiculopathy [M51.16] Procedures L4 laminotomies with L4-L5 discectomy [address] - [place] LAMINECTOMY W/O FFD 1/2 VERT SEG LUMBAR Bilateral L4 laminotomy, diskectomy, and foraminotomy. Surgeons * Jenny Snell - Primary Procedure Summary Anesthesia: General ASA: II Estimated Blood Loss: Minimal Drains: * None in log * Staff: Assistant Baseball Coach: Murray Xavier RN Relief Assistant Baseball Coach: Juliana Cho RN Relief Scrub: Lisy Parikh, MIRTA Scrub Person: Yudi White CST Thread Checker: Brandon Vidal CSA Indications: Renee Kim is an 42 y.o. female who is having surgery for Lumbar disc prolapse with compression radiculopathy [M51.16]. Findings: Large free fragment of disk material. Complete collapse of disk space. Nerve roots appeared well decompressed at conclusion of procedure. No CSF egress. Complications: None; patient tolerated the procedure well. Disposition: PACU - hemodynamically stable. Condition: stable Specimens Collected: Order Name Source Comment Collection Info Order Time TYPE AND SCREEN Blood, Venous Collected By: Vanessa Velazco RN 09/25/2022 9:18 AM Release to Patient Immediately Attending Attestation: I performed the procedure. Jenny Snell [facility] POCT GLUCOSE METER UNSOLICIT ED RESULTSon 09-25-2022 Glucose [Mass/Vol] 117 mg/dL High 70-105 [facility] Comment on above: Order Comment: Waive d Testing in the ED is performed under the ED CLIA certificate #[id number]. Result Comment: acle ment Performed By: #### L [id number] ####[facility] (JENNY)[address] [address] TYPE AND SCREENon 09-25-2022 AB SCREEN Negative Normal [facility] Comment on above: Performed By: #### L [id number] #### [facility] BLOOD BANK , ABO group Nom (Bld) O Normal [facility] Comment on above: Performed By: #### L [id number] #### [facility] BLOOD BANK , RH TYPE IN BLOOD Positive Normal [facility] Comment on above: Performed By: #### L [id number] #### [facility]OD [facility] , Orders Onlyon 09-23-2022 Orders Only [id number] Renee Kim 1980 F Date Provider Department Center 09/23/2022 MIRNA IRIZARRY [facility] Medical C Family History Problem Relation Age of Onset Hypertension Mother Hyperlipidemia Mother Colon polyps Mother Comments: Hx of colon polyps Hypertension Father Hyperlipidemia Father Lung cancer Maternal Grandfather Diabetes Maternal Grandfather Thyroid disease Other Comments: siblings Fibromyalgia Other Comments: siblings Family Status - Relation Status Age at Mother Father Maternal Grandfather Other Normal [facility] 36on 09-20-2022 36 Spoke with patient. Advised that we could do surgery 09/25/[address] Snell. Tentatively scheduled for 1030 but will receive phone call day prior between 3 and 430pm to notify of arrival time. Provided with phone number to call if she does not receive this information. NPO after MN. Can take meds with sip of water. Start CHG wash tonight and use nightly until surgery--will send prescription. Will fax lab orders to [facility], states will have drawn today after work. No perfume, deodorant, lotion, jewelry, makeup, nail georgian. No contact lenses. Bring photo ID and insurance cards but do not bring anything valuable. Discussed postop activity restrictions, incision care, pain meds for limited time after surgery, postop appt, no driving while on pain meds or meds that cause drowsiness, need for stage driver home after discharge, overnight admission. Verbalizes understanding. Reinforced clinic phone number to call back if questions. Normal [facility] 36 Precert submitted for surgery but pending. Has [place] and precert normally takes 10-14 days, per Sue Chase. There is no way to expedite. I offered to call insurance company but Sue did not think that would be productive. Please follow up and see what happens. Patient was in ED recently and having progressive symptoms. May need to be seen by Dr. Snell in clinic if progressive symptoms. Please discuss with Dr. Snell if questions. Normal [facility] Letter (Out)on 09-20-2022 Letter (Out) [id number] Renee Kim 1980 F [facility] Provider Department Center 09/20/2022 None-None [facility] AUTH MS Medical C Family History Problem Relation Age of Onset Hypertension Mother Hyperlipidemia Mother Colon polyps Mother Comments: Hx of colon polyps Hypertension Father Hyperlipidemia Father Lung cancer Maternal Grandfather Diabetes Maternal Grandfather Thyroid disease Other Comments: siblings Fibromyalgia Other Comments: siblings Family Status - Relation Status Age at Mother Father Maternal Grandfather Other [facility] Telephoneon 09-20-2022 Telephone [id number] Renee Kim 1980 Provider Department Center 09/20/2022 SALOME GÓMEZ [facility] SURG Second Fl Family History Problem Relation Age of Onset Hypertension Mother Hyperlipidemia Mother Colon polyps Mother Comments: Hx of colon polyps Hypertension Father Hyperlipidemia Father Lung cancer Maternal Grandfather Diabetes Maternal Grandfather Thyroid disease Other Comments: siblings Fibromyalgia Other Comments: siblings Family Status - Relation Status Age at Mother Father Maternal Grandfather Other [facility] 36on 09-19-2022 [address] Gonzales in [place] ED. Patient having increased back and LLE pain despite baclofen, celebrex, tylenol, oxycodone 10mg. Unable to stand due to pain. Patient requesting to be transferred to [facility] for surgery. Discussed with Dr. Gonzales not clear that this is realistic as not sure we have beds and surgeon currently doing 6 hour case. I will need to discuss with him when he is done with surgery regarding how to proceed. I can let patient know. Patient does not need to stay in ED until decision is made. Suggested Decadron to see if this helps. [facility] 36 Paulina from [facility] called back asking to speak with you again on this patient. [facility] [address] Gonzales in [place] ED. States she discussed with patient, will discharge on prednisone taper and valium. No signs/sx of cauda equina, rectal tone normal. Advised Dr. Gonzales that I had talked to Dr. Snell, there is no indication for transfer, I am trying to arrange surgery for next week and will notify her once done. [facility] Prep for Procedureon 023 Prep for Procedure [id number] Renee Kim 1980 Date Provider Department Center 09/19/2022 [id number], [facility] SURG Second Fl Family History Problem Relation Age of Onset Hypertension Mother Hyperlipidemia Mother Colon polyps Mother Comments: Hx of colon polyps Hypertension Father Hyperlipidemia Father Lung cancer Maternal Grandfather Diabetes Maternal Grandfather Thyroid disease Other Comments: siblings Fibromyalgia Other Comments: siblings Family Status - Relation Status Age at Mother Father Maternal Grandfather Other [facility] Telephoneon 09-19-2022 Telephone [id number] Renee Kim 1980 Provider Department Center 09/19/2022 [id number] [facility] SUR[facility] [address] Family History Problem Relation Age of Onset Hypertension Mother Hyperlipidemia Mother Colon polyps Mother Comments: Hx of colon polyps Hypertension Father Hyperlipidemia Father Lung cancer Maternal Grandfather Diabetes Maternal Grandfather Thyroid disease Other Comments: siblings Fibromyalgia Other Comments: siblings Family Status - Relation Status Age at Mother Father Maternal Grandfather Other [facility] 36on 09-16-2022 36 Discussed with patient that I had reviewed imaging with Dr. Snell. Could consider L4 laminotomies with L4-L5 discectomy. Would be about 1.5 hours, general anesthesia, overnight hospital stay, likely few weeks off work, no repetitive bending, lifting, twisting, for a time after surgery. Advised that she can take whatever time she needs to decide. Could also arrange appt for her to discuss in clinic with Dr. Snell personally if she would like. She states she would like to proceed. Will have Luda reach out later this week to schedule. Normal [facility] 36on 09-13-2022 36 Left voicemail for patient to call back on Friday to discuss recent clinic visit. Normal [facility] Telephoneon 09-13-2022 Telephone [id number] Renee Kim 1980 F Date Provider Department Center 09/13/2022 [facility]OME [facility] SURG Second Fl Family History Problem Relation Age of Onset Hypertension Mother Hyperlipidemia Mother Colon polyps Mother Comments: Hx of colon polyps Hypertension Father Hyperlipidemia Father Lung cancer Maternal Grandfather Diabetes Maternal Grandfather Thyroid disease Other Comments: siblings Fibromyalgia Other Comments: siblings Family Status - Relation Status Age at Mother Father Maternal Grandfather Other Normal [facility] HPon 09-12-2022 HP SUBJECTIVE: Chief complaint: Chronic back and leg pain. History of present illness: Referred by primary care provider for chronic back and leg pain. Reports chronic low back pain for the past 3 to 5 years without apparent injury. However, states over the past 1 year, she has been having nerve pain that started in her right leg and is now into her left leg. Pain is laterally down the legs to the ankles, though not into the feet. Right leg pain has largely resolved, though has residual numbness. Left leg pain persists. Pain is worse bilateral ankles. Associated with weakness of the left leg and cramping of both legs. Does report imbalance. Denies falls, though notes she is careful not to fall. She denies bowel or bladder changes or incontinence. Symptoms are present throughout the day but worse in the morning. Somewhat better with CBD oil. Changes in position, including stretches and lumbar flexion, use to help but are no longer beneficial. Nothing in particular seems to aggravate the pain. Poor sleep secondary to pain. Has done physical therapy for her back multiple times over the past several years. Currently seeing pain management at [facility] and has had injections without lasting or substantial relief. Recently had epidural steroid injection. Has not had previous back surgery. Currently on Tylenol 3, amitriptyline, baclofen, citalopram, prednisone taper, all with insufficient relief. Additionally reports chronic neck pain as well as some numbness of the right forearm. Has tenderness to palpation of the neck as well as pain into both shoulders. Has not done physical therapy or had injections for this. States this is currently a less bothersome symptom, though is becoming increasingly persistent. No previous surgery. Review of systems: Constitutional: Denies fever, chills. Head: Denies headaches. Eyes: Denies vision change. Ears: Denies change in hearing. Nose/throat: Denies dysphagia. Cardiovascular: Denies chest pain. Respiratory: Denies cough, shortness of breath. Extremities: Denies edema. Genitourinary: Denies incontinence or retention. Gastrointestinal: Denies bowel incontinence. Neurologic: Reports weakness, numbness, tingling, unsteady gait. Denies falls. Musculoskeletal: Reports neck pain, back pain. Past Medical History: Diagnosis Date Depression Kidney stone Past Surgical History: Procedure Laterality Date APPENDECTOMY CYSTOSCOPY DILATION AND CURETTAGE OF UTERUS HYSTERECTOMY LAPAROSCOPY DIAGNOSTIC / BIOPSY / ASPIRATION / LYSIS ULNAR NERVE REPAIR Right right ulnar compression 01/2021 Social History Tobacco Use Smoking status: Every Day Packs/day: 0.50 Types: Cigarettes Smokeless tobacco: Never Substance Use Topics Alcohol use: Yes Comment: Socially Drug use: Never Family History Problem Relation Name Age of Onset Hypertension Mother Hyperlipidemia Mother Colon polyps Mother Hx of colon polyps Hypertension Father Hyperlipidemia Father Lung cancer Maternal Grandfather Diabetes Maternal Grandfather Thyroid disease Other siblings Fibromyalgia Other siblings OBJECTIVE: Medications: acetaminophen-codein e amitriptyline baclofen citalopram predniSONE zonisamide Current Outpatient Medications: acetaminophen-codein e (Tylenol w/ Codeine #3) 300-30 mg tablet, Take 1 tablet by mouth every 6 (six) hours if needed., Disp: , Rfl: amitriptyline (Elavil) 10 mg tablet, Take 10 mg by mouth at bedtime., Disp: , Rfl: baclofen (Lioresal) 10 mg tablet, Take 20 mg by mouth at bedtime., Disp: , Rfl: citalopram (CeleXA) 20 mg tablet, Take 20 mg by mouth at bedtime., Disp: , Rfl: predniSONE (Deltasone) 10 mg tablet, Take 10 mg by mouth 1 (one) time each day., Disp: , Rfl: zonisamide (Zonegran) 50 mg capsule, 50 mg in the morning, at noon, and at bedtime., Disp: , Rfl: Allergies: Allergies Allergen Reactions Morphine Other reaction(s): rash Rash, tightness in neck and chest area Exam: Vitals reviewed: Temp: [37.1 ???C (98.7 ???F)] 37.1 ???C (98.7 ???F) Heart Rate: [83] 83 BP: (143)/(87) 143/87 No intake/output data recorded. No intake/output data recorded. Accompanied by today. Constitutional: In no apparent distress. Cardiovascular: Heart sounds regular rate and rhythm without appreciable murmur. Chest: Lung sounds clear to auscultation bilaterally. Respirations regular and nonlabored. Abdomen: Soft, nontender, nondistended. Extremities without edema. Skin warm and dry without pallor. Neuro: GCS 15/15. Attention and memory intact. No dysarthria or aphasia. Cranial Nerves: Conjugate gaze. PERRLA 3 mm. EOMI. No nystagmus. Facial expression symmetrical bilaterally. Hearing intact to conversation. Trapezii symmetrical bilaterally. Tongue midline. Sensation: Intact to light touch C5-T1 and L2-S1 dermatomes bilaterally with exception of decreased sensation right C6, C8 (more content not included)... Normal [facility] Office Visiton 09-12-2022 Follow-up visit [id number] Renee Kim 1980 F Date Provider Department Center 09/12/2022 [facility]OME G[facility] SURG Second Fl Family History Problem Relation Age of Onset Hypertension Mother Hyperlipidemia Mother Colon polyps Mother Comments: Hx of colon polyps Hypertension Father Hyperlipidemia Father Lung cancer Maternal Grandfather Diabetes Maternal Grandfather Thyroid disease Other Comments: siblings Fibromyalgia Other Comments: siblings Family Status - Relation Status Age at Mother Father Maternal Grandfather Other Level of Service:09261 [place] OFFICE/OUTPATIENT NEW MODERATE MDM 45-59 MINUTES Reason for Visit and Comments: New Patient [632] - Patient is here for a lumbar degenerative disc disease Normal [facility] MARIBEL by IFAon 07-08-2022 Antinuclear Antibodies, IFA Negative Normal [facility] Comment on above: Result Comment: Nega tive <1:80 Borderline 1:80 Positive >1:80 ICAP nomenclature: AC-0 For more information about Hep-2 cell patterns use ANApatterns.org, the official website for the International Consensus on Antinuclear Antibody (MARIBEL) Patterns (ICAP). Performed By: #### A NAIFA #### [facility] [address] [place] [address] Dr. Estuardo Buchanan RHEUMATOID FACTORon 07-07-19 RA Latex Turbid. <10.0 Normal <14.0 [facility] Comment on above: Performed By: #### R F #### [facility] [address] [place] [address] Dr. Estuardo Buchanan CBC AUTO DIFFon 07-04-2022 BASO # 0.1 103/ul Normal 0.0-0.1 [facility] Comment on above: Performed By: #### C BC #### [facility] [address] [place] [address] Dr. Estuardo Buchanan Basophils/100 WBC (Bld) 0.5 % Normal 0.2-2.0 [facility] Comment on above: Performed By: #### C BC #### [facility] [address] [place] [address] Dr. Estuardo Buchanan EO # 0.1 103/ul Normal 0.0-0.7 [facility] Comment on above: Performed By: #### C BC #### [facility] [address] [place] [address] Dr. Estuardo Buchanan Eosinophils/100 WBC (Bld) 0.9 % Normal 0.9-7.0 [facility] Comment on above: Performed By: #### C BC #### [facility] [address] [place] [address] Dr. Estuardo Buchanan Erythrocyte distribution width (RBC) [Ratio] 14.2 % Normal 11.0-15.0 [facility] Comment on above: Performed By: #### C BC #### [facility] [address] [place] [address] Dr. Estuardo Buchanan Hematocrit (Bld) [Volume fraction] 43.2 % Normal 36.0-48.0 [facility] Comment on above: Performed By: #### C BC #### [facility] [address] [place] [address] Dr. Estuardo Buchanan Hemoglobin (Bld) [Mass/Vol] 14.0 g/dL Normal 12.0-16.0 [facility] Comment on above: Performed By: #### C BC #### [facility] [address] [place] [address] Dr. Estuardo Buchanan IG # 0.07 10e3/ul Critically high 0.00-0.03 [facility] Comment on above: Performed By: #### C BC #### [facility] [address] [place] [address] Dr. Estuardo Buchanan IG % 0.5 % Normal 0.0-0.5 [facility] Comment on above: Performed By: #### C BC #### [facility] [address] [place] [address] Dr. Estuardo Buchanan LYMPH # 3.0 103/ul Normal 1.2-3.8 [facility] Comment on above: Performed By: #### C BC #### [facility] [address] [place] [address] Dr. Estuardo Buchanan Lymphocytes/100 WBC (Bld) 20.4 % Critically low 20.5-60.0 [facility] Comment on above: Performed By: #### C BC #### [facility] [address] [place] [address] Dr. Estuardo Buchanan MANUAL DIFF REQ NO Normal [facility] Comment on above: Performed By: #### C BC #### [facility] [address] [place] [address] Dr. Estuardo Buchanan MCH (RBC) [Entitic mass] 31.7 pg Normal 26.7-34.0 [facility] Comment on above: Performed By: #### C BC #### [facility] [address] [place] [address] Dr. Estuardo Buchanan MCHC (RBC) [Mass/Vol] 32.4 g/dL Normal 29.9-35.2 [facility] Comment on above: Performed By: #### C BC #### [facility] [address] [place] [address] Dr. Estuardo Buchanan MCV (RBC) [Entitic vol] 97.7 fL Normal 81.0-99.0 [facility] Comment on above: Performed By: #### C BC #### [facility] [address] [place] [address] Dr. Estuardo Buchanan MONO # 0.4 103/ul Normal 0.3-0.8 [facility] Comment on above: Performed By: #### C BC #### [facility] [address] [place] [address] Dr. Estuardo Buchanan Monocytes/100 WBC (Bld) 2.8 % Normal 1.7-12.0 [facility] Comment on above: Performed By: #### C BC #### [facility] [address] [place] [address] Dr. Estuardo Buchanan NEUT # 11.0 103/ul Critically high 1.4-6.5 [facility] Comment on above: Performed By: #### C BC #### [facility] [address] [place] [address] Dr. Estuardo Buchanan Neutrophils/100 WBC (Bld) 74.9 % Normal 43.0-75.0 [facility] Comment on above: Performed By: #### C BC #### [facility] [address] [place] [address] Dr. Estuardo Buchanan Platelet mean volume (Bld) [Entitic vol] 10.4 fL Normal 9.5-13.5 [facility] Comment on above: Performed By: #### C BC #### [facility] [address] [place] [address] Dr. Estuardo Buchanan PLT 285 103/ul Normal 150-450 [facility] Comment on above: Performed By: #### C BC #### [facility] [address] [place] [address] Dr. Estuardo Buchanan RBC 4.42 106/ul Normal 4.20-5.40 [facility] Comment on above: Performed By: #### C BC #### [facility] [address] [place] [address] Dr. Estuardo Buchanan WBC 14.7 103/ul Critically high 4.0-11.0 [facility] Comment on above: Performed By: #### C BC #### [facility] [address] [place] [address] Dr. Estuardo Buchanan CRPon 07-04-2022 CRP [Mass/Vol] mg/L Normal <=1.0 [facility] Comment on above: Performed By: #### C RP #### [facility] [address] [place] [address] Dr. Estuardo Buchanan SED RATE WESTERGRENon 2022 SED RATE 11 mm/hr Normal <=20 [facility] Comment on above: Performed By: #### C BC #### [facility] [address] [place] [address] Dr. Estuardo Buchanan CBC AUTO DIFFon 06-19-2022 BASO # 0.1 103/ul Normal 0.0-0.1 [facility] Comment on above: Performed By: #### C BC #### [facility] [address] [place] [address] Dr. Estuardo Buchanan Basophils/100 WBC (Bld) 0.5 % Normal 0.2-2.0 [facility] Comment on above: Performed By: #### C BC #### [facility] [address] [place] [address] Dr. Estuardo Buchanan EO # 0.1 103/ul Normal 0.0-0.7 [facility] Comment on above: Performed By: #### C BC #### [facility] [address] [place] [address] Dr. Estuardo Buchanan Eosinophils/100 WBC (Bld) 0.5 % Critically low 0.9-7.0 [facility] Comment on above: Performed By: #### C BC #### [facility] [address] [place] [address] Dr. Estuardo Buchanan Erythrocyte distribution width (RBC) [Ratio] 13.8 % Normal 11.0-15.0 [facility] Comment on above: Performed By: #### C BC #### [facility] [address] [place] [address] Dr. Estuardo Buchanan Hematocrit (Bld) [Volume fraction] 45.9 % Normal 36.0-48.0 [facility] Comment on above: Performed By: #### C BC #### [facility] [address] [place] [address] Dr. Estuardo Buchanan Hemoglobin (Bld) [Mass/Vol] 14.9 g/dL Normal 12.0-16.0 [facility] Comment on above: Performed By: #### C BC #### [facility] [address] [place] [address] Dr. Estuardo Buchanan IG # 0.06 10e3/ul Critically high 0.00-0.03 [facility] Comment on above: Performed By: #### C BC #### [facility] [address] [place] [address] Dr. Estuardo Buchanan IG % 0.4 % Normal 0.0-0.5 [facility] Comment on above: Performed By: #### C BC #### [facility] [address] [place] [address] Dr. Estuardo Buchanan LYMPH # 3.4 103/ul Normal 1.2-3.8 [facility] Comment on above: Performed By: #### C BC #### [facility] [address] [place] [address] Dr. Estuardo Buchanan Lymphocytes/100 WBC (Bld) 22.2 % Normal 20.5-60.0 [facility] Comment on above: Performed By: #### C BC #### [facility] [address] [place] [address] Dr. Estuardo Buchanan MANUAL DIFF REQ NO Normal [facility] Comment on above: Performed By: #### C BC #### [facility] [address] [place] [address] Dr. Estuardo Buchanan MCH (RBC) [Entitic mass] 31.6 pg Normal 26.7-34.0 [facility] Comment on above: Performed By: #### C BC #### [facility] [address] [place] [address] Dr. Estuardo Buchanan MCHC (RBC) [Mass/Vol] 32.5 g/dL Normal 29.9-35.2 [facility] Comment on above: Performed By: #### C BC #### [facility] [address] [address] [address] Estuardo Buchanan MCV (RBC) [Entitic vol] 97.2 fL Normal 81.0-99.0 [facility] Comment on above: Performed By: #### C BC #### [facility] [address] [address] [address] Estuardo Buchanan MONO # 0.5 103/ul Normal 0.3-0.8 [facility] Comment on above: Performed By: #### C BC #### [facility] [address] [place] [address] Dr. Estuardo Buchanan Monocytes/100 WBC (Bld) 3.0 % Normal 1.7-12.0 [facility] Comment on above: Performed By: #### C BC #### [facility] [address] [place] [address] Dr. Estuardo Buchanan NEUT # 11.2 103/ul Critically high 1.4-6.5 [facility] Comment on above: Performed By: #### C BC #### [facility] [address] [place] [address] Dr. Estuardo Buchanan Neutrophils/100 WBC (Bld) 73.4 % Normal 43.0-75.0 [facility] Comment on above: Performed By: #### C BC #### [facility] [address] [place] [address] Dr. Estuardo Buchanan Platelet mean volume (Bld) [Entitic vol] 10.4 fL Normal 9.5-13.5 [facility] Comment on above: Performed By: #### C BC #### [facility] [address] [place] [address] Dr. Estuardo Buchanan PLT 294 103/ul Normal 150-450 [facility] Comment on above: Performed By: #### C BC #### [facility] [address] [place] [address] Dr. Estuardo Buchanan RBC 4.72 106/ul Normal 4.20-5.40 [facility] Comment on above: Performed By: #### C BC #### [facility] [address] [address] [address] Estuardo Buchanan WBC 15.2 103/ul Critically high 4.0-11.0 [facility] Comment on above: Performed By: #### C BC #### [facility] [address] [address] [address] Estuardo Buchanan GLYCOHEMOGLOBIN A1Con 2022 ADA RECOMMENDATION SEE BELOW Normal [facility] Comment on above: Result Comment: ADA RECOMMENDED LIMIT 4.0 - 6.0 ADA THERAPEUTIC TARGET < 7.0 ACTION SUGGESTED > 7.0 Performed By: #### A 1C #### [facility] [address] [address] [address] Estuardo Buchanan Glucose [Mass/Vol] 100 mg/dL Normal [facility] Comment on above: Performed By: #### A 1C #### [facility] [address] [place] [address] Dr. Estuardo Buchanan HbA1c (Bld) [Mass fraction] 5.1 % Normal 4.5-6.2 [facility] Comment on above: Performed By: #### A 1C #### [facility] [address] [address] [address] Estuardo Buchanan LIPID PROFILEon 06-19-2022 CHOL-HDL RATIO NORM SEE BELOW Normal [facility] Comment on above: Result Comment: 3.3 - 4.4 LOW RISK 4.4 - 7.1 AVERAGE RISK 7.1 - 11.0 MODERATE RISK >11.0 HIGH RISK Performed By: #### T SH, CMP, LIPID #### [facility] [address] [place] [address] Dr. Estuardo Buchanan Cholesterol [Mass/Vol] 199 mg/dL Normal <=200 [facility] Comment on above: Performed By: #### T SH, CMP, LIPID #### [facility] [address] [address] [address] Estuardo Buchanan Cholesterol in HDL [Mass/Vol] 50 mg/dL Normal 40-60 [facility] Comment on above: Performed By: #### T SH, CMP, LIPID #### [facility] [address] [address] [address] Estuardo Buchanan Cholesterol in LDL [Mass/Vol] 130.0 mg/dL Normal [facility] Comment on above: Performed By: #### T SH CMP, LIPID #### [facility] [address] [place] [address] Dr. Estuardo Buchanan Cholesterol.total/Ch olesterol in HDL [Mass ratio] 4.0 {ratio} Normal [facility] Comment on above: Performed By: #### T SH, CMP, LIPID #### [facility] [address] [address] [address] Estuardo Buchanan HDL NORMAL > or = 60 mg/dl - LOW CARDIOVASCULAR RISK <40 mg/dl - HIGH CARDIOVASCULAR RISK Normal [facility] Comment on above: Performed By: #### T SH CMP, LIPID #### [facility] [address] [place] [address] Dr. Estuardo Buchanan LDL CALC NORMAL SEE BELOW Normal [facility] Comment on above: Result Comment: <100 mg/dl OPTIMAL 100 - 129 mg/dl NEAR OR ABOVE OPTIMAL 130 - 159 mg/dl BORDERLINE HIGH 160 - 189 mg/dl HIGH >190 mg/dl VERY HIGH Performed By: #### T SH CMP, LIPID #### [facility] [address] [address] [address] Estuardo Buchanan Triglyceride [Mass/Vol] 95 mg/dL Normal <=150 [facility] Comment on above: Performed By: #### T RAELIS CMP, LIPID #### [facility] [address] [place] [address] Dr. Estuardo Buchanan VLDL CALC 19.0 mg/dL Normal [facility] Comment on above: Performed By: #### T SH, CMP, LIPID #### [facility] [address] [address] [address] Estuardo Buchanan PROF 14(COMP METB)on 023 Albumin [Mass/Vol] 4.2 g/dL Normal 3.4-5.0 [facility] Comment on above: Performed By: #### T SH, CMP, LIPID #### [facility] [address] [place] [address] Dr. Estuardo Buchanan Albumin/Globulin [Mass ratio] 1.2 {ratio} Normal [facility] Comment on above: Performed By: #### T SH, CMP, LIPID #### [facility] [address] [address] [address] Estuardo Buchanan ALP [Catalytic activity/Vol] 60 U/L Normal 46-116 [facility] Comment on above: Performed By: #### T SH, CMP, LIPID #### [facility] [address] [address] [address] Estuardo Buchanan ALT [Catalytic activity/Vol] 35 U/L Normal 14-59 [facility] Comment on above: Performed By: #### T ARELIS, CMP, LIPID #### [facility] [address] [place] [address] Dr. Estuardo Buchanan Anion gap [Moles/Vol] 9.5 mmol/L Normal [facility] Comment on above: Performed By: #### T ARELIS, CMP, LIPID #### [facility] [address] [place] [address] Dr. Estuardo Buchanan AST [Catalytic activity/Vol] 20 U/L Normal 15-37 [facility] Comment on above: Performed By: #### T ARELIS, CMP, LIPID #### [facility] [address] [place] [address] Dr. Estuardo Buchanan Bilirubin [Mass/Vol] 0.4 mg/dL Normal 0.2-1.0 [facility] Comment on above: Performed By: #### T SH, CMP, LIPID #### [facility] [address] [place] [address] Dr. Estuardo Buchanan Calcium [Mass/Vol] 9.7 mg/dL Normal 8.5-10.1 [facility] Comment on above: Performed By: #### T SH, CMP, LIPID #### [facility] [address] [place] [address] Dr. Estuardo Buchanan Chloride [Moles/Vol] 105 mmol/L Normal 98-107 [facility] Comment on above: Performed By: #### T SH, CMP, LIPID #### [facility] [address] [address] [address] Estuardo Buchanan CO2 [Moles/Vol] 30.4 mmol/L Normal 21.0-32.0 [facility] Comment on above: Performed By: #### T SH, CMP, LIPID #### [facility] [address] [address] [address] Estuardo Buchanan Creatinine [Mass/Vol] 0.82 mg/dL Normal 0.55-1.02 [facility] Comment on above: Performed By: #### T SH, CMP, LIPID #### [facility] [address] [address] [address] Estuardo Buchanan EGFR-AF BANGLADESHI >60 Normal >=60 [facility] Comment on above: Performed By: #### T SH, CMP, LIPID #### [facility] [address] [address] [address] Estuardo Buchanan EGFR-NON AF BANGLADESHI >60 Normal >=60 [facility] Comment on above: Performed By: #### T SH, CMP, LIPID #### [facility] [address] [address] [address] Estuardo Buchanan Globulin (S) [Mass/Vol] 3.6 g/dL Normal [facility] Comment on above: Performed By: #### T SH, CMP, LIPID #### [facility] [address] [address] [address] Estuardo Buchanan Glucose [Mass/Vol] 91 mg/dL Normal 74-106 [facility] Comment on above: Performed By: #### T SH, CMP, LIPID #### [facility] [address] [address] [address] Estuardo Buchanan Potassium [Moles/Vol] 4.9 mmol/L Normal 3.5-5.1 [facility] Comment on above: Performed By: #### T SH, CMP, LIPID #### [facility] [address] [address] [address] Estuardo Buchanan Protein [Mass/Vol] 7.8 g/dL Normal 6.4-8.2 [facility] Comment on above: Performed By: #### T SH, CMP, LIPID #### [facility] [address] [address] [address] Estuardo Buchanan Sodium [Moles/Vol] 140 mmol/L Normal 136-145 [facility] Comment on above: Performed By: #### T SH, CMP, LIPID #### [facility] [address] [address] [address] Estuardo Buchanan Urea nitrogen [Mass/Vol] 16.0 mg/dL Normal 7.0-18.0 [facility] Comment on above: Performed By: #### T SH, CMP, LIPID #### [facility] [address] [address] [address] Estuardo Buchanan Urea nitrogen/Creatinine [Mass ratio] 19.5 mg/mg [facility] Comment on above: Performed By: #### T SH, CMP, LIPID #### [facility] [address] [place] [address] Dr. Estuardo Buchanan TSHon 06-19-2022 TSH 1.108 uIU/mL Normal 0.358-3.740 [facility] Comment on above: Performed By: #### T SH, CMP, LIPID #### [facility] [address] [place] [address] Dr. Estuardo Buchanan QUANTIFERON TB GOLD PLUSon 0 03-24-2022 QuantiFERON Criteria Comment [facility] Comment on above: Result Comment: Eugene tiFERON-TB Gold Plus is a qualitative indirect test for M tuberculosis infection (including disease) and is intended for use in conjunction with risk assessment, radiography, and other medical and diagnostic evaluations. The QuantiFERON-TB Gold Plus result is determined by subtracting the Nil value from either TB antigen (Ag) value. The Mitogen tube serves as a control for the test. Performed By: #### Q NTTB #### [facility] [address] [place] [address] Dr. Estuardo Buchanan QuantiFERON Incubation Incubation performed. Normal [facility] Comment on above: Performed By: #### Q NTTB #### [facility] [address] [place] [address] Dr. Estuardo Buchanan QuantiFERON Mitogen Value >10.00 [facility] Comment on above: Performed By: #### Q NTTB #### [facility] [address] [place] [address] Dr. Estuardo Buchanan QuantiFERON Nil Value 0.02 IU/mL Normal [facility] Comment on above: Performed By: #### Q NTTB #### [facility] [address] [place] [address] Dr. Estuardo Buchanan QuantiFERON TB1 Ag Value 0.03 IU/mL Normal [facility] Comment on above: Performed By: #### Q NTTB #### [facility] [address] [address] [address] Estuardo Buchanan QuantiFERON TB2 Ag Value 0.03 IU/mL Normal [facility] Comment on above: Performed By: #### Q NTTB #### [facility] [address] [place] [address] Dr. Estuardo Buchanan QuantiFERON-TB Gold Plus Negative Normal Negative [facility] Comment on above: Result Comment: No r esponse to M tuberculosis antigens detected. Infection with M tuberculosis is unlikely, but high risk individuals should be considered for additional testing (ATS/IDSA/CDC Clinical Practice Guidelines, 2017). The reference range is an Antigen minus Nil result of <0.35 IU/mL. Chemiluminescence immunoassay methodology Performed By: #### Q NTTB #### [facility] [address] [place] [address] Dr. Estuardo Buchanan HEPATITIS B SURFACE ANTIBODY , QUANTon 03-23-2022 Hepatitis B Surf AB Quant 279.6 mIU/mL Normal Immunity>9.9 [facility] Comment on above: Result Comment: Stat us of Immunity Anti-HBs Level Inconsistent with Immunity 0.0 - 9.9 Consistent with Immunity >9.9 Performed By: #### C BC #### [facility] [address] [place] [address] Dr. Estuardo Buchanan MMR IMMUNITYon 03-23-2022 Mumps Abs, IgG 120.0 AU/mL Normal Immune >10.9 [facility] Comment on above: Result Comment: Nega tive <9.0 Equivocal 9.0 - 10.9 Positive >10.9 A positive result generally indicates past exposure to Mumps virus or previous vaccination. Performed By: #### C BC #### [facility] [address] [place] [address] Dr. Estuardo Buchanan Rubella Antibodies, IgG 1.53 index Normal Immune >0.99 [facility] Comment on above: Result Comment: Non- immune <0.90 Equivocal 0.90 - 0.99 Immune >0.99 Performed By: #### C BC #### [facility] [address] [place] [address] Dr. Estuardo Buchanan Rubeola Ab, IgG 128.0 AU/mL Normal Immune >16.4 [facility] Comment on above: Result Comment: Nega tive <13.5 Equivocal 13.5 - 16.4 Positive >16.4 Presence of antibodies to Rubeola is presumptive evidence of immunity except when acute infection is suspected. Performed By: #### C BC #### [facility] [address] [place] [address] Dr. Estuardo Buchanan VARICELLA IGG ABon 3 Varicella Zoster IgG 723 index Normal Immune >165 [facility] Comment on above: Result Comment: Nega tive <135 Equivocal 135 - 165 Positive >165 A positive result generally indicates exposure to the pathogen or administration of specific immunoglobulins, but it is not indication of active infection or stage of disease. Performed By: #### C BC #### [facility] [address] [place] [address] Dr. Estuardo Buchanan Clinical Notes 04-18-2022 to 10-08-2022 Note Date & Type Note Facility 10-08-2022 Note SUBJECTIVE: Chief complaint: Postoperative visit. History of present illness: Postoperative visit status post bilateral L4-L5 discectomy on 09/25/[address] Snell for lumbar disc prolapse with radiculopathy. Patient reports she is doing much better since surgery. Reports some achiness across her back for which she is taking Tylenol and Aleve. Left leg pain that she was having prior to surgery has improved, the leg remains somewhat weak and she feels weak overall in general. Continues to have some numbness right lateral ankle and left foot. Denies falls, imbalance, bowel or bladder changes or incontinence. Denies issues with the incision. Notes that she has stopped her Zonegran as prescribed by pain management as she thought it was contributing to her weakness. Feels better since stopping this medication. Would like to know when she can return to work. Review of systems: As in HPI. Past Medical History: Diagnosis Date Depression Herniated lumbar intervertebral disc Irritable bowel syndrome Joint pain BACK PAIN Kidney stone Past Surgical History: Procedure Laterality Date APPENDECTOMY CYSTOSCOPY DILATION AND CURETTAGE OF UTERUS HYSTERECTOMY LAPAROSCOPY DIAGNOSTIC / BIOPSY / ASPIRATION / LYSIS LUMBAR DISCECTOMY Bilateral 09/25/2022 Bilateral L4-5 diskectomy, Dr. Snell ULNAR NERVE REPAIR Right right ulnar compression 01/2021 Social History Tobacco Use Smoking status: Every Day Packs/day: 1.00 Years: 20.00 Pack years: 20.00 Types: Cigarettes Smokeless tobacco: Never Vaping Use Vaping Use: Never used Substance Use Topics Alcohol use: Yes Comment: bi monthly Drug use: Never Family History Problem Relation Name Age of Onset Hypertension Mother Hyperlipidemia Mother Colon polyps Mother Hx of colon polyps Hypertension Father Hyperlipidemia Father Lung cancer Maternal Grandfather Diabetes Maternal Grandfather Thyroid disease Other siblings Fibromyalgia Other siblings OBJECTIVE: Medications: amitriptyline citalopram diphenhydrAMINE-acetaminophen Current Outpatient Medications: amitriptyline (Elavil) 25 mg tablet, Take 25 mg by mouth in the morning., Disp: , Rfl: citalopram (CeleXA) 20 mg tablet, Take 20 mg by mouth at bedtime., Disp: , Rfl: diphenhydrAMINE-acetaminophen (Tylenol PM Extra Strength) 25-500 mg per tablet, , Disp: , Rfl: Allergies: Allergies Allergen Reactions Morphine Other reaction(s): rash Rash, tightness in neck and chest area Exam: Vitals reviewed: No intake/output data recorded. No intake/output data recorded. Accompanied by today. Constitutional: In no apparent distress. Chest: Chest expansion symmetrical. Respirations regular and nonlabored. Extremities without edema. Skin warm and dry without pallor. Lumbar incision well approximated without edema, erythema, drainage. Surgical glue loosening. Neuro: GCS 15/15. Attention and memory intact. No dysarthria or aphasia. Sensation: Intact to light touch L2-S1 dermatomes bilaterally with exception of decreased sensation right L4 and L5 dermatome. Musculoskeletal: Deltoid, biceps, triceps, finger flexors, finger extensors 4/5 bilaterally. Hip flexors 4+/5, knee flexors, knee extensors 4+/5 bilaterally, ankle plantar flexors 4+/5 right, 4 -/5 left. Ankle plantar flexion 4+/5 right, 4-/5 left. Muscle tone without hyper or hypotonicity. Muscle bulk appropriate for age. Ambulatory without device. Labs: Admission on 09/25/2022, Discharged on 09/26/2022 Component Date Value Ref Range Status ABO Grouping 09/25/2022 O Final Rh Type 09/25/2022 POS Final Ab Scrn 09/25/2022 NEG Final Glucose POC 09/25/2022 117 (H) 70 - 105 mg/dL Final Imaging: No results found for this or any previous visit from the past 360 days. Impression: Lumbar disc prolapse with radiculopathy status post bilateral L4-L5 discectomy on 09/25/[address] Snell. Plan: PT order provided for home exercise program. Call with questions or concerns about the incision. Avoid lifting greater than 10 pounds for another month. Okay to drive if not taking sedating medications. Okay to return to work starting tomorrow-return to work note provided. Follow-up in 1 month or sooner if new or worsening problems. [facility] 10-08-2022 Note Subjective: HPI: Mrs. Kim is a 42 year old woman presenting for a follow-up of a laminotomy performed on 09/25/2022. She reports pain relief immediately following surgery. A few days after surgery, Mrs. Kim began experiencing pain similar to the pain she was experiencing prior to surgery. She believed this was due to the medication, Zonegran, which was prescribed to her by her pain management physician. Mrs. Kim stopped taking Zonegran and reported feeling pain relief days after discontinuing the medication. She reports a slight weakness in her legs but is able to ambulate well. Bowel and bladder functions are reported to be in tact following the procedure. Objective: No redness, swelling, or tenderness around incision. Exam: Neurology: CN II-XII in tact. Pupils equal, round, and reactive to light and accomodation. Plantarflexion and dorsiflexion 4/5 in left foot; strength in tact in all other extremities. Sensation of pressure was kennel manager on the right lateral leg; sensation in tact in all other extremities. Assessment: Mrs. Kim had an L4 laminotomy to treat a lumbar disc prolapse with compression radiculopathy that caused chronic leg and back pain. Plan: See physical therapist for leg exercises. Follow-up with neurosurgery clinic in 1 month. Kim Dhillon, MS3 [facility] 09-26-2022 Note Neurosurgery Progres s Note Post-operative Day # 1 Subjective: No acute events. LLE pain much improved, but patient notes some numbness in the regions that had previously been painful. Minimal back pain. Feels strength in leg is stable. Tolerating PO. Voiding. Did well with PT this AM. Denies other neurological symptoms. Problem List: Patient Active Problem List Diagnosis Lumbar disc prolapse with compression radiculopathy Smoker within last 12 months Obesity (BMI 35.0-39.9 without comorbidity) Lumbar disc herniation with radiculopathy Medications: acetaminophen, 1,000 mg, oral, q8h amitriptyline, 10 mg, oral, Nightly baclofen, 20 mg, oral, Nightly citalopram, 20 mg, oral, Nightly docusate sodium, 100 mg, oral, BID enoxaparin, 40 mg, subcutaneous, Daily ketorolac, 30 mg, intravenous, q8h Oxygen Therapy, , inhalation, Continuous zonisamide, 50 mg, oral, TID PRN medications: HYDROmorphone, methocarbamol, naloxone OR naloxone OR naloxone, ondansetron ODT OR ondansetron, oxyCODONE OR oxyCODONE OR oxyCODONE Objective: Vitals: Vitals: 09/25/22 1945 BP: 130/81 Pulse: 97 Resp: 23 Temp: 36.7 ???C (98.1 ???F) SpO2: 98% I/O: Intake/Output Summary (Last 24 hours) at 09/26/2022 1031 Last data filed at 09/25/2022 1930 Gross per 24 hour Intake 1243 ml Output 337 ml Net 906 ml Drains: Output by Drain (mL) 09/24/22 0700 - 09/24/22 1859 09/24/22 1900 - 09/25/22 0659 09/25/22 0700 - 09/25/22 1859 09/25/22 1900 - 09/26/22 0659 09/26/22 0700 - 09/26/22 1031 Patient has no LDAs of requested type attached. General: Awake, alert, NAD. Well groomed. HEENT: Normocephalic, atraumatic. Neck supple without lymphadenopathy. Heart: Regular rate and rhythm. Lungs: Clear to auscultation bilaterally. Abdomen: Soft, non-tender, non-distended. Bowel sounds present. Extremities: No cyanosis or edema. No noted deformities. Back: Wound clean, dry, intact with dermabond in place. Neurologic: Appropriate affect during exam. Normal fluency and prosody of speech. Content appropriate and higher function appears intact. CN II-XII grossly intact. Palate elevates symmetrically. Motor 5/5 throughout except 4/5 in L DF / PF. Sensation intact to light touch throughout. FTN intact. Lab: Admission on 09/25/2022 Component Date Value Ref Range Status ABO Grouping 09/25/2022 O Final Rh Type 09/25/2022 POS Final Ab Scrn 09/25/2022 NEG Final Glucose POC 09/25/2022 117 (H) 70 - 105 mg/dL Final aclement Imaging: XR lumbar spine complete 4+ views 09/12/2022 Narrative XR LUMBAR SPINE COMPLETE 4+ VIEWS HISTORY: Back pain. Lumbar spine pain. TECHNIQUE: XR LUMBAR SPINE COMPLETE 4+ VIEWS. FINDINGS: Comparison MRI 07/26/2022. Satisfactory alignment of the lumbar spine. No pathologic motion on flexion and extension views. Moderate degenerative changes at L4-5 with disc space narrowing, facet hypertrophy, and endplate sclerosis. Mild disc space narrowing at L5-S1. Posterior elements intact. SI joints are symmetric. Impression *No acute findings. *Degenerative changes as above, notably at L4-5. Electronically signed: Toby Montero. Assessment and Plan: POD #1 s/p bilateral L4-5 laminotomy, diskectomy, and foraminotomy. LLE pain significantly improved. Doing well today. Meeting discharge criteria. Will plan for home today. [facility] 09-26-2022 Note Occupational Therapy Occupational Therapy Evaluation Patient Name: Renee Kim : 1980 Today's Date: 09/26/2022 Time In: 943 Time Out: 1014 Present hx: Reports chronic low back pain for the past 3 to 5 years without apparent injury. However, states over the past 1 year, she has been having nerve pain that started in her right leg and is now into her left leg. Pain is laterally down the legs to the ankles, though not into the feet. Right leg pain has largely resolved, though has residual numbness. Left leg pain persists. Pain is worse bilateral ankles. Associated with weakness of the left leg and cramping of both legs. Does report imbalance. Noted to have lumbar disc prolapse with inferior migration at L4-L5 that appears to have progressed since 2020. There is worsening stenosis at this level, at least moderate, as well as bilateral foraminal stenosis, left side greater than right. There are Modic endplate changes at this level as well as disc space narrowing. There is no substantial canal or foraminal stenosis at the other levels in the lumbar spine. Pt underwent L4 lami and L4-5 discectomy on 09/25/22 General Subjective: friendly and coopeative, reports she is feeling well and ready to d/c home tody Patient Active Problem List Diagnosis Lumbar disc prolapse with compression radiculopathy Smoker within last 12 months Obesity (BMI 35.0-39.9 without comorbidity) Lumbar disc herniation with radiculopathy Past Medical History: Diagnosis Date Depression Herniated lumbar intervertebral disc Irritable bowel syndrome Joint pain BACK PAIN Kidney stone Past Surgical History: Procedure Laterality Date APPENDECTOMY CYSTOSCOPY DILATION AND CURETTAGE OF UTERUS HYSTERECTOMY LAPAROSCOPY DIAGNOSTIC / BIOPSY / ASPIRATION / LYSIS LUMBAR DISCECTOMY Bilateral 09/25/2022 Bilateral L4-5 diskectomy, Dr. Snell ULNAR NERVE REPAIR Right right ulnar compression 01/2021 Precautions Precautions Medical Precautions: no bending lifting or twisting, log roll Pain Pain Assessment Pain Score: 2 (LLE below knee, reports it feels much better) Cognition Cognition Overall Cognitive Status: Within Functional Limits General Assessment General Assessment Hand Dominance: Left Home Living Home Living Type of Home: House Lives With: Spouse, Other (Comment) (mother in law and two childen 15. & 17) Home Adaptive Equipment: (mother in law has SW. cane. TTB, RTS / she can use if needed . reports walker will not fit into bathroom) Home Layout: Two level, Bed/bath upstairs, Full bath main level (reports she can sleep on first floor if absolutely needed to) Home Access: Stairs to enter with rails (3) Bathroom Shower/Tub: Walk-in shower Prior Level of Function Prior Function Level of [place]: Independent with ADLs and functional transfers, Independent with homemaking with ambulation Prior IADLs IADL History Homemaking Responsibilities: Yes Dynamic Sitting Balance Dynamic Sitting Balance Dynamic Sitting Balance-Level of Assistance: Independent Dynamic Standing Balance Dynamic Standing Balance Dynamic Standing Balance-Level of Assistance: Independent ADL ADL LE Dressing Assistance: Independent Transfers Transfer 1 Transfer From 1: (in chair upon arrival , reports PT discussed log roll with good return demo, good verbal demo to OT, indep:: sit to stand, 100 feet , standing five minutes and return to chair) Objective General Assessments Activity Tolerance Endurance: Stage II Vision - Basic Assessment Current Vision: No visual deficits Sensation Light Touch: No apparent deficits Proprioception Proprioception: No apparent deficits Coordination Movements are Fluid and Coordinated: Yes Extremity Assessments RUE Assessment RUE Assessment: (reprots no issues with UB/ MMT deferred) Outcome Assessments AM-PAC 6 Clicks Putting on and taking off regular lower body clothing?: None (Independent) Bathing(Including washing,rinsing,drying)?: None (Independent) Toileting, which includes using the toilet,bedpan,or urinal?: None (Independent) Putting on and taking off regular upper body clothing?: None (Independent) Taking care of personal grooming such as brushing teeth?: None (Independent) Eating meals?: None (Independent) Total Score OT [facility]: 24 Assessment/Plan OT Assessment OT Education/Comments: extensive discussion regarding general home safety with new BLT precautions with good verbal teach back Plan OT Plan: No skilled OT OT Discharge Recommendations: Home Equipment Recommended: (none) OT - Discharge Recommendations Placed: Yes OT Goals Multi-Disciplinary Problems (from Occupational Therapy) Active Problems Not on file [facility] 09-26-2022 Note Physical Therapy Physical Therapy Evaluation Patient Name: Renee Kim : 1980 Today's Date: 09/26/2022 Session time: 099-001 Present hx: Reports chronic low back pain for the past 3 to 5 years without apparent injury. However, states over the past 1 year, she has been having nerve pain that started in her right leg and is now into her left leg. Pain is laterally down the legs to the ankles, though not into the feet. Right leg pain has largely resolved, though has residual numbness. Left leg pain persists. Pain is worse bilateral ankles. Associated with weakness of the left leg and cramping of both legs. Does report imbalance. Noted to have lumbar disc prolapse with inferior migration at L4-L5 that appears to have progressed since 2020. There is worsening stenosis at this level, at least moderate, as well as bilateral foraminal stenosis, left side greater than right. There are Modic endplate changes at this level as well as disc space narrowing. There is no substantial canal or foraminal stenosis at the other levels in the lumbar spine. Pt underwent L4 lami and L4-5 discectomy on 09/25/22 General Family/Caregiver Present: No Subjective: Pt is sitting upright in bed and finishing breakfast. Pt is agreeable to PT. 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 Pt is thoroughly educated on BLT precautions and mobility techniques. Verbalizes and demo's understanding. RN micki's session; reports pt has been wanting to get OOB. PT Diagnosis: lumbar disc prolapse with compression radiculopathy Patient Active Problem List Diagnosis Lumbar disc prolapse with compression radiculopathy Smoker within last 12 months Obesity (BMI 35.0-39.9 without comorbidity) Lumbar disc herniation with radiculopathy Past Medical History: Diagnosis Date Depression Herniated lumbar intervertebral disc Irritable bowel syndrome Joint pain BACK PAIN Kidney stone Past Surgical History: Procedure Laterality Date APPENDECTOMY CYSTOSCOPY DILATION AND CURETTAGE OF UTERUS HYSTERECTOMY LAPAROSCOPY DIAGNOSTIC / BIOPSY / ASPIRATION / LYSIS LUMBAR DISCECTOMY Bilateral 09/25/2022 Bilateral L4-5 diskectomy, Dr. Snell ULNAR NERVE REPAIR Right right ulnar compression 01/2021 Precautions Precautions Medical Precautions: fall risk, IV, lifting, no bending lifting or twisting (lifting less than 5-10 pounds, log roll with bed mobility) Post-Surgical Precautions: BLT precautions, log rol Braces Applied: no brace ordered, no brace in room. Dr Snell present at end of session Pain Pain Assessment Pain Assessment: 0-10 Pain Score: 2 Pain Type: Acute pain, Surgical pain Pain Location: Back Pain Orientation: Lower Pain Descriptors: Aching Pain Frequency: Constant/continuous Pain Onset: Ongoing Clinical Progression: Rapidly improving Multiple Pain Sites: Two Cognition Cognition Overall Cognitive Status: Within Functional Limits Arousal/Alertness: Appropriate responses to stimuli Orientation Level: Oriented X4 Following Commands: Follows all commands and directions without difficulty Safety Judgment: Good awareness of safety precautions Awareness of Errors: Good awareness of errors made Deficits: Fully aware of deficits Attention Span: Appears intact Memory: Appears intact Problem Solving: Able to problem solve independently Communication: Intact General Assessment General Assessment Hearing: WFL Skin Integrity: observed areas intact, back incision not observed Edema: none noted Home Living Home Living Type of Home: House Lives With: Spouse Home Adaptive Equipment: Walker standard, Cane Home Living Comments: bathroom is not walker/ w/c accessible Home Layout: Two level, Bed/bath upstairs Home Access: Stairs to enter with rails Entrance Stairs-Rails: Both Entrance Stairs-Number of Steps: 3 Bathroom Shower/Tub: Walk-in shower Bathroom Toilet: Handicapped height Bathroom Equipment: Tub transfer bench, Raised toilet seat without rails Prior Level of Function Prior Function Level of [place]: Independent with ADLs and functional transfers, Independent with homemaking with ambulation Prior Functional Mobility: Independent without device ADL Assistance: Independent Homemaking Assistance: Independent Prior Function Comments: reports 1 fall ~2 wks ago d/t L LE weakness Vision Basic Assessment Vision - Basic Assessment Current Vision: Wears glasses all the time Activity Tolerance Activity Tolerance Ambulation comments: good toleraance of gait distance, denies dizziness/lightheadedness but c/o fatigue feeling d/t anesthesia Endurance: Stage IV General Assessments Activity Tolerance Ambulation comments: good toleraance of gait distance, denies dizziness/lightheadedness but c/o fatigue feeling d/t anesthesia Endurance: Stage IV Sensation Light Touch: Partial deficits in the LLE Pr (more content not included)... [facility] 09-26-2022 Note Progress note: The patient reports experiencing pain relief after spinal decompression procedure. The patient is alert and oriented. The patient has been able to ambulate post-op. Kim Dhillon, Medical Student [facility] 09-25-2022 Note Patient: Renee larsen Procedure Summary Date: 09/25/22 Room / Location: [facility] OPERATING ROOM 03 / [facility] Operating Room Anesthesia Start: 1049 Anesthesia Stop: 1327 Procedure: L4 laminotomies with L4-L5 discectomy Diagnosis: Lumbar disc prolapse with compression radiculopathy (Lumbar disc prolapse with compression radiculopathy [M51.16]) Surgeons: Jenny Snell MD Responsible Provider: Marco Abdi MD Anesthesia Type: general ASA Status: 2 Anesthesia Type: general Vitals Value Taken Time BP 124/80 09/25/22 1420 Temp 36.8 ???C (98.2 ???F) 09/25/22 1320 Pulse 85 09/25/22 1421 Resp 12 09/25/22 1421 SpO2 96 % 09/25/22 1421 Vitals shown include unvalidated device data. Anesthesia Post Evaluation Patient location during evaluation: PACU Patient participation: complete - patient participated Level of consciousness: sleepy but conscious Pain score: 2 Pain management: adequate Airway patency: patent Cardiovascular status: acceptable Respiratory status: acceptable and nasal cannula (3L) Hydration status: acceptable Patient is hemodynamically stable and is able to be discharged from PACU per anesthesia protocol. No notable events documented. [facility] 09-25-2022 Note Airway Date/Time: 09/25/2022 11:05 AM Urgency: elective Airway not difficult General Information and Staff Patient location during procedure: OR Anesthesiologist: Marco Abdi MD Resident/BUILD AUTOMATION ENGINEER/CAA: LE Oh Performed: resident/BUILD AUTOMATION ENGINEER/CAA Indications and Patient Condition Indications for airway management: anesthesia Spontaneous Ventilation: absent Sedation level: deep Preoxygenated: yes Patient position: sniffing Mask difficulty assessment: 1 - vent by mask Planned trial extubation Final Airway Details Final airway type: endotracheal airway Successful airway: ETT Cuffed: yes Successful intubation technique: video laryngoscopy Facilitating devices/methods: intubating stylet Endotracheal tube insertion site: oral Blade: Fernandez Blade size: #3 ETT size (mm): 7.0 Cormack-Lehane Classification: grade IIa - partial view of glottis Placement verified by: chest auscultation and capnometry Measured from: lips ETT to lips (cm): 22 Number of attempts at approach: 1 Number of other approaches attempted: [address] [facility] 09-25-2022 Note Patient: Renee larsen Procedure Information Date/Time: 09/25/22 1030 Procedure: L4 laminotomies with L4-L5 discectomy - 1.5 hours, C arm, prone on open Ernst, downpushing curettes Location: [facility] OPERATING ROOM 03 / [facility] Operating Room Surgeons: Jenny Snell MD Relevant Problems No relevant active problems Clinical information reviewed: Tobacco Allergies Meds Med Hx Surg Hx Fam Hx Soc Hx Physical Exam Airway Mallampati: III TM distance: >3 FB Neck ROM: full Cardiovascular - normal exam Rhythm: regular Rate: normal Dental Pulmonary - normal exam Abdominal (+) obese Other findings: Had quit in past but started again at 1 PPD Denies cardiopulmonary disease Anesthesia Plan ASA 2 general The patient is a current smoker. Patient was previously instructed to abstain from smoking on day of procedure. Patient did not smoke on day of procedure. Education provided regarding risk of obstructive sleep apnea. intravenous induction Postoperative administration of opioids is intended. Anesthetic plan and risks discussed with patient and mother. Plan discussed with CAA. Additional Equipment Requests [facility] 09-13-[address] Snell case. Diagnosis: Lumbar disc prolapse with radiculopathy. Procedure: L4 laminotomies, L4-L5 discectomy. Time 1.5 hours. Prone on open Ernst. Need C arm and downpushing curettes. [facility] 09-12-2022 Note SUBJECTIVE: Chief complaint: Chronic back and leg pain. History of present illness: Referred by primary care provider for chronic back and leg pain. Reports chronic low back pain for the past 3 to 5 years without apparent injury. However, states over the past 1 year, she has been having nerve pain that started in her right leg and is now into her left leg. Pain is laterally down the legs to the ankles, though not into the feet. Right leg pain has largely resolved, though has residual numbness. Left leg pain persists. Pain is worse bilateral ankles. Associated with weakness of the left leg and cramping of both legs. Does report imbalance. Denies falls, though notes she is careful not to fall. She denies bowel or bladder changes or incontinence. Symptoms are present throughout the day but worse in the morning. Somewhat better with CBD oil. Changes in position, including stretches and lumbar flexion, use to help but are no longer beneficial. Nothing in particular seems to aggravate the pain. Poor sleep secondary to pain. Has done physical therapy for her back multiple times over the past several years. Currently seeing pain management at [facility] and has had injections without lasting or substantial relief. Recently had epidural steroid injection. Has not had previous back surgery. Currently on Tylenol 3, amitriptyline, baclofen, citalopram, prednisone taper, all with insufficient relief. Additionally reports chronic neck pain as well as some numbness of the right forearm. Has tenderness to palpation of the neck as well as pain into both shoulders. Has not done physical therapy or had injections for this. States this is currently a less bothersome symptom, though is becoming increasingly persistent. No previous surgery. Review of systems: Constitutional: Denies fever, chills. Head: Denies headaches. Eyes: Denies vision change. Ears: Denies change in hearing. Nose/throat: Denies dysphagia. Cardiovascular: Denies chest pain. Respiratory: Denies cough, shortness of breath. Extremities: Denies edema. Genitourinary: Denies incontinence or retention. Gastrointestinal: Denies bowel incontinence. Neurologic: Reports weakness, numbness, tingling, unsteady gait. Denies falls. Musculoskeletal: Reports neck pain, back pain. Past Medical History: Diagnosis Date Depression Kidney stone Past Surgical History: Procedure Laterality Date APPENDECTOMY CYSTOSCOPY DILATION AND CURETTAGE OF UTERUS HYSTERECTOMY LAPAROSCOPY DIAGNOSTIC / BIOPSY / ASPIRATION / LYSIS ULNAR NERVE REPAIR Right right ulnar compression 01/2021 Social History Tobacco Use Smoking status: Every Day Packs/day: 0.50 Types: Cigarettes Smokeless tobacco: Never Substance Use Topics Alcohol use: Yes Comment: Socially Drug use: Never Family History Problem Relation Name Age of Onset Hypertension Mother Hyperlipidemia Mother Colon polyps Mother Hx of colon polyps Hypertension Father Hyperlipidemia Father Lung cancer Maternal Grandfather Diabetes Maternal Grandfather Thyroid disease Other siblings Fibromyalgia Other siblings OBJECTIVE: Medications: acetaminophen-codeine amitriptyline baclofen citalopram predniSONE zonisamide Current Outpatient Medications: acetaminophen-codeine (Tylenol w/ Codeine #3) 300-30 mg tablet, Take 1 tablet by mouth every 6 (six) hours if needed., Disp: , Rfl: amitriptyline (Elavil) 10 mg tablet, Take 10 mg by mouth at bedtime., Disp: , Rfl: baclofen (Lioresal) 10 mg tablet, Take 20 mg by mouth at bedtime., Disp: , Rfl: citalopram (CeleXA) 20 mg tablet, Take 20 mg by mouth at bedtime., Disp: , Rfl: predniSONE (Deltasone) 10 mg tablet, Take 10 mg by mouth 1 (one) time each day., Disp: , Rfl: zonisamide (Zonegran) 50 mg capsule, 50 mg in the morning, at noon, and at bedtime., Disp: , Rfl: Allergies: Allergies Allergen Reactions Morphine Other reaction(s): rash Rash, tightness in neck and chest area Exam: Vitals reviewed: Temp: [37.1 ???C (98.7 ???F)] 37.1 ???C (98.7 ???F) Heart Rate: [83] 83 BP: (143)/(87) 143/87 No intake/output data recorded. No intake/output data recorded. Accompanied by today. Constitutional: In no apparent distress. Cardiovascular: Heart sounds regular rate and rhythm without appreciable murmur. Chest: Lung sounds clear to auscultation bilaterally. Respirations regular and nonlabored. Abdomen: Soft, nontender, nondistended. Extremities without edema. Skin warm and dry without pallor. Neuro: GCS 15/15. Attention and memory intact. No dysarthria or aphasia. Cranial Nerves: Conjugate gaze. PERRLA 3 mm. EOMI. No nystagmus. Facial expression symmetrical bilaterally. Hearing intact to conversation. Trapezii symmetrical bilaterally. Tongue midline. Sensation: Intact to light touch C5-T1 and L2-S1 dermatomes bilaterally with exception of decreased sensation right C6, C8 (more content not included)... [facility] 04-18-2022 Note PAIN MANAGEMENT CONS ULTATION CONSULTATION DATE: 04/18/2022 TO: Dr. Askew and Dr. Myers: CHIEF COMPLAINT: Severe right lower back pain. HISTORY OF PRESENT ILLNESS: questionnaire is available request. Briefly, she is a 42-year-old female, who reports having pain since at least 2020. She had seen a neurosurgical consultation at that time and they recommended conservative therapy. She rates the pain as being at least 5-7/10 pain, sharp in character, including activities standing, walking, maneuvers, as well as composition bowel or bladder habits lower extremities. EXAM: no clinical radiculopathy involving the lower extremities. No clinical myelopathy involving the lower extremities. Patient did have severe pain on the right side from L4 through S1. paravertebral muscles. Patient did have some moderate pain with lumbar axial loading maneuvers; however, patient did not have pain radiating into her right lower extremity. IMPRESSION: Patient has chronic pain secondary to lumbosacral spondylosis clinically. Possible L4-5 lumbar discogenic pain associated with myofascial spasm of the lumbar paravertebral muscles. RECOMMENDATIONS: I recommended aquatic therapy, baclofen 10 mg pill, half a pill to one pill b.i.d. and medial branch block on the right at L3, L4 and L5, repeated x1 depending on initial response. the patient. All questions answered. She wished to proceed with the plan. [facility] Summary Purpose Family History No Family History Records FoundNo Family History Records FoundNo Family History Records Found Advance Directives No Advanced Directives Records FoundNo Advanced Directives Records FoundNo Advanced Directives Records Found Additional Source Comments INFORMATION SOURCE (unrecogn ized section and content) DATE CREATED AUTHOR 07/10/2022 [facility] DATE CREATED AUTHOR AUTHOR'S ORGANIZ ATION 10/12/2022 [facility] DATE CREATED AUTHOR AUTHOR'S ORGANIZ ATION 07/04/2023 [facility] FOR RECORDS PERTAINING TO PATIENTS WHO ARE OR HAVE BEEN ENROLLED IN A CHEMICAL DEPENDENCY/SUBSTANCEABUSE PROGRAM, SOME INFORMATION MAY BE OMITTED. This clinical summary was aggregated from multiple sources. Caution should be exercised in using it in the provision of clinical care. This summary normalizes information from multiple sources, and as a consequence, information in this document may materially change the coding, format and clinical context of patient data. In addition, data may be omitted in some cases. CLINICAL DECISIONS SHOULD BE BASED ON THE PRIMARY CLINICAL RECORDS. [facility] [employer] [facility]. provides no warranty or guarantee of the accuracy or completeness of information in this document.
[2023-07-23 09:06] LABS: Basophils Absolute Auto 0.1 10^3/uL (0.0-0.1); Basophils Percent Auto 0.8 % (0.2-2.0); Eosinophils Absolute Auto 0.2 10^3/uL (0.0-0.7); Eosinophils Percent Auto 1.6 % (0.9-7.0); Hematocrit 42.6 % (36.0-48.0); Hemoglobin 13.7 g/dL (12.0-16.0); Immature Granulocytes Abs Auto 0.02 10^3/uL (0.00-0.03); Immature Granulocytes Pct Auto 0.2 % (0.0-0.5); Lymphocytes Absolute Auto 2.5 10^3/uL (1.2-3.8); Lymphocytes Percent Auto 25.7 % (20.5-60.0); Mean Corpuscular HGB Conc 32.2 g/dL (29.9-35.2); Mean Corpuscular Hemoglobin 32.5 pg (26.7-34.0); Mean Corpuscular Volume 101.2 fL (81.0-99.0); Mean Platelet Volume 10.6 fL (9.5-13.5); Monocytes Absolute Auto 0.4 10^3/uL (0.3-0.8); Monocytes Percent Auto 3.7 % (1.7-12.0); Neutrophils Absolute Auto 6.6 10^3/uL (1.4-6.5); Platelet Count 271 10^3/uL (150-450); Red Blood Count 4.21 10^6/uL (4.20-5.40); Red Cell Distribution Width 14.3 % (11.0-15.0); White Blood Count 9.7 10^3/uL (4.0-11.0)
[2023-07-23 09:16] LABS: Estimated Average Glucose 88 mg/dL; Glycohemoglobin A1C 4.7 % (4.5-6.2)
[2023-07-23 09:47] LABS: Alanine Aminotransferase 49 U/L (14-59); Albumin Globulin Ratio 1.1; Albumin Level 3.6 g/dL (3.4-5.0); Alkaline Phosphatase 72 U/L (46-116); Anion Gap 10.5; Aspartate Amino Transferase 24 U/L (15-37); BUN Creatinine Ratio 15.2; Bilirubin Direct 0.1 mg/dL (0.0-0.2); Bilirubin Total 0.4 mg/dL (0.2-1.0); Calcium 8.5 mg/dL (8.5-10.1); Carbon Dioxide 27.9 mmol/L (21.0-32.0); Chloride 105 mmol/L (98-107); Chol HDL Ratio 3.5; Cholesterol 223 mg/dL (<=200); Estimated GFR (African America >60 (>=60); Estimated GFR (Non-African Ame >60 (>=60); Globulin 3.2 g/dL; Glucose 106 mg/dL (74-106); HDL Cholesterol 64 mg/dL (40-60); Potassium 4.4 mmol/L (3.5-5.1); Sodium 139 mmol/L (136-145); Thyroid Stimulating Hormone 1.662 uIU/mL (0.358-3.740); Total Protein 6.8 g/dL (6.4-8.2); Triglycerides 73 mg/dL (<=150); VLDL CHOLESTEROL 14.6 mg/dL
== END 2023-07-23 08:36 | disposition home or self-care (01) ==
LOC: LAB 08:36
PROVIDERS: PCP Family Medicine; Visit Provider Family Medicine
DX: Z00.00 Encounter for general adult medical examination without abnormal findings (principal)
CPT/HCPCS: 36415; 80048; 80061; 80076; 83036; 84443; 85025

== ENCOUNTER 2023-08-01 06:55 | Outpatient (OUT) | payer BC, SELFPAY ==
--- NOTE | 2023-08-01 06:56 | MM_ITS ---
Patient Name: RENEE REGALADO MR#: [id number] : 1980 Exam Date: 08/01/2023 Ordering Doctor: DR Dante Panda . RADIOLOGY REPORT PROCEDURE: MM TOMOSYNTHESIS SCREENING BI COMPARISON: MM TOMOSYNTHESIS SCREENING BI, 07/26/2022. MG MAMM SCREEN TOOTIE W CAD, 10/13/2019. INDICATIONS: screening for malignant neoplasm Z12.31 Calculator Name NCI Breast Cancer Risk Assessment Tool 5 Year Breast Cancer Risk 0.70% Lifetime Breast Cancer Risk 8.60% Personal Breast Cancer No Personal Ovarian Cancer No Treatments None Family Cancers Grandfather-paternal with lung cancer at age 70. LOCATION: [facility] BREAST COMPOSITION: There are scattered areas of fibroglandular density. FINDINGS: DIAGNOSTIC CATEGORY 1--NEGATIVE. RIGHT BREAST: No significant suspicious finding. No significant change has occurred. LEFT BREAST: No significant suspicious finding. No significant change has occurred. RECOMMENDATIONS: ROUTINE MAMMOGRAM AND CLINICAL EVALUATION IN 12 MONTHS. PLEASE NOTE: A NORMAL MAMMOGRAM DOES NOT EXCLUDE THE POSSIBILITY OF BREAST CANCER. A CLINICALLY SUSPICIOUS PALPABLE LUMP SHOULD BE BIOPSIED. Dictated by: Dilan Go M.D. on 08/01/2023 at 15:05 Approved by: Dilan Go M.D. on 08/01/2023 at 15:07
--- OUTSIDE RECORDS SUMMARY | 2023-08-01 06:57 | XMS_ITS | CCD ---
Author Organization [facility] Care Team Providers Care Courtesy Van Driver Name Role Phone NUSRAT LIAO Admitting Unavailable NUSRAT LIAO Attending Unavailable NUSRAT LIAO Consulting Unavailable JERRELL, DR CUEVAS Primary Care Unavailable LAKSHMIPATHY ., MERVAT Attending Katie vailable JERRELL, DR CUEVAS Primary Care Unavailable LAKSHMIPATHY ., NARKIMBERLEY Consulting Katie vailable LAKSHMIPATHY ., MERVAT Admitting Katie vailable LAKSHMIPATHY ., MERVAT Attending Katie vailable HUNTER, DR MERT Villaseñor Primary Care Unavailable LAKSHMIPATHY ., NARKIMBERLEY Consulting Katie vailable LAKSHMIPATHY ., MERVAT Admitting Katie vailable ARCHIBALD ., DR GUILLERMO Kong Admitting Unavailable HEMMER, DR SU Etienne Referring Unavailable ARCHIBALD ., DR GUILLERMO Kong Attending Unavailable JERRELL, DR CUEVAS Primary Care Unavailable LAKSHMIPATHY ., MERVAT Admitting Katie vailable NADERENestor, DR MERT Villaseñor Primary Care Unavailable LAKSHMIPATHY ., MERVAT Attending Katie vailable LAKSHMIPATHY ., MERVAT Consulting Katie vailable HUNTER, DR MERT Villaseñor Attending Unavailable NADCYNTHIA, DR MERT Villaseñor Consulting Unavailable HUNTER, DR MERT Villaseñor Primary Care Unavailable HUNTER, DR MERT Villaseñor Admitting Unavailable HUNTER, DR MERT Villaseñor Consulting Unavailable HUNTER, DR MERT Villaseñor Primary Care Unavailable NADERENestor, DR MERT Villaseñor Admitting Unavailable NADERENestor, DR MERT Villaseñor Attending Unavailable OVITT, SALOME Referring Unavailable OVITT, SALOME Referring Unavailable CAROL, JENNY Attending Unavailable CAROL, JENNY Admitting Unavailable OVITT, SALOME Attending Unavailable OVITT, SALOME Attending Unavailable CAROL, JENNY Referring Unavailable NADERERMERT Attending Unavailable KATIE IGLESIAS Attending Unavailable Allergies Allergy Classification Reported Allergen(s) Allergy Type Date of Onset Reaction(s) Facility (2 sources) Morphine; Translations: [MORPHINE] Drug Allergy [facility] Repository (1 source) ALLERGIES NOT ON FILE; Translations: [ALLERGIES NOT ON FILE] Propensity to adverse reactions (disorder) [facility] Repository Problems Active Problems Problem Classification Problem Date [...] Range Facility Office Visiton 10-08-2022 Follow-up visit [id number] Ochoa Kimssica 1980 F Date Provider Department Center 10/08/2022 SALOME GÓMEZ [facility] Second Fl Family History Problem Relation Age of Onset Hypertension Mother Hyperlipidemia Mother Colon polyps Mother Comments: Hx of colon polyps Hypertension Father Hyperlipidemia Father Lung cancer Maternal Grandfather Diabetes Maternal Grandfather Thyroid disease Other Comments: siblings Fibromyalgia Other Comments: siblings Family Status - Relation Status Age at Mother Father Maternal Grandfather Other Level of Service:55225 [place] POSTOP FOLLOW UP VISIT RELATED TO ORIGINAL [...] bed w/o being in no pain. Normal [facility] 30on 09-26-2022 30 The patient is Moderately Stable - Low risk of patient condition declining or worsening The patient's goals for the shift include rest The clinical goals for the shift include vss Normal [facility] DSon 09-26-2022 DS Admission Admitted 09/25/2022 for [...] Medications These medications were sent to [facility] - [place], [place] - [address] [place] [address] [place] [address], [facility] [address] oxyCODONE-acetaminop hen 5-325 mg tablet Activity Normal activity as tolerated No driving until seen in clinic for follow-up. No strenuous activity Showering instructions: It is OK to shower as normal on the day after surgery. Do not submerge the wounds in water such as in bathtubs, hot tubs, or swimming pools. 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 Diet [...] is performed under the ED CLIA certificate #[id number]. TYPE AND SCREEN ABO Grouping O Rh Type POS Ab Scrn NEG Nutrition Screen Issues Requiring Follow-Up None. Outpatient Follow-Up Future Appointments Date Time Provider Department Center 10/08/2022 2:00 PM Salome Farmer NP [facility] Second Fl Test Results Pending At Discharge [facility] HPon 09-25-2022 HP H&P reviewed. The patient was examined and there are no changes to the H&P. [facility] HP H&P reviewed. The patient was examined and there are no changes to the H&P. [facility] NURSNOTEon 09-25-2022 NURSNOTE Patient complaining of numbness in her left leg from the knee down. Dr. Snell notified, no orders received at this time. [facility] OPNOTEon 09-25-2022 OPNOTE L4 laminotomies with L4-L5 discectomy Operative Note Date: 09/25/2022 Location: [facility] OR Name: Renee Kim, : 1980, Diagnosis Pre-op Diagnosis * Lumbar disc prolapse with compression radiculopathy [M51.16] Post-op Diagnosis * Lumbar disc prolapse with compression radiculopathy [M51.16] Procedures L4 laminotomies with L4-L5 discectomy [address] - [place] LAMINECTOMY W/O FFD 1/2 VERT SEG LUMBAR Bilateral L4 laminotomies for bilateral L4-5 discectomy and foraminotomies. Surgeons * Jenny Burton - Primary Procedure Summary Anesthesia: General ASA: II Estimated Blood Loss: 37 mL Drains: * None in log * Staff: Manager Intranet: Murray Xavier RN Relief Manager Intranet: Juliana Cho RN Relief Scrub: Lisy Parikh CST Scrub Person: Yudi White CST Patent Counsel: Brandon Vidal CSA Indications: Renee Kim is [...] to the left laminotomy defect. Here a Deering 4 explore was passed lateral to the [...] mobilization and removal of the disc material Catahoula explorer could be passed ventral to the thecal sac without evidence of substantial stenosis, although a portion of disc material with some stenosis could be palpated on the contralateral side of the spinal canal. A #3 [place] (more content not included)... Normal [facility] OPNOTE Date: 09/25/2022 Location: [facility] OR Name: Renee Kim, : 1980, Diagnosis Pre-op Diagnosis * Lumbar disc prolapse with compression radiculopathy [M51.16] Post-op Diagnosis * Lumbar disc prolapse with compression radiculopathy [M51.16] Procedures L4 laminotomies with L4-L5 discectomy [address]89 - [place] LAMINECTOMY W/O FFD 1/2 VERT SEG LUMBAR Bilateral L4 laminotomy, diskectomy, and foraminotomy. Surgeons * Jenny Snell - Primary Procedure Summary Anesthesia: General ASA: II Estimated Blood Loss: Minimal Drains: * None in log * Staff: Manager Intranet: Murray Xavier RN Relief Manager Intranet: Juliana Cho RN Relief Scrub: Lisy Parikh, CONFERENCE PLANNER Scrub Person: Yudi White, MIRTA Patent Counsel: Brandon Vidal CSA Indications: Renee Kim is [...] Attestation: I performed the procedure. Jenny Snell Normal [facility] POCT GLUCOSE METER UNSOLICIT ED RESULTSon 09-25-2022 Glucose [Mass/Vol] 117 mg/dL High 70-105 [facility] Comment on above: Order Comment: Waive d Testing in the ED is performed under the ED CLIA certificate #[id number]. Result Comment: acle ment Performed By: #### L [id number] ####[facility] ([facility])[address] [place] [address] TYPE AND SCREENon 09-25-2022 AB SCREEN Negative Normal [facility] Comment on above: Performed By: #### L [id number] #### [facility] , ABO group Nom (Bld) O Normal [facility] Comment on above: Performed By: #### L [id number] #### [facility] , RH TYPE IN BLOOD Positive Normal [facility] Comment on above: Performed By: #### L [id number] #### [facility] , Orders Onlyon 09-23-2022 Orders Only [id number] Fina Kimica 1980 F Date Provider Department Center 09/23/2022 Alfonso-MIRNA ARDON [facility] Family History Problem Relation Age of Onset Hypertension Mother Hyperlipidemia Mother Colon polyps Mother Comments: Hx of colon polyps Hypertension Father Hyperlipidemia Father Lung cancer Maternal Grandfather Diabetes Maternal Grandfather Thyroid disease Other Comments: siblings Fibromyalgia Other Comments: siblings Family Status - Relation Status Age at Mother Father Maternal Grandfather Other Normal [facility] 36on 09-20-2022 36 Precert submitted for surgery but pending. Has [place] and precert normally takes 10-14 days, per [...] discuss with Dr. Snell if questions. Normal [facility] 36 Spoke with patient. Advised that we [...] send prescription. Will fax lab orders to [facility], states will have drawn today after work. No perfume, deodorant, lotion, jewelry, makeup, nail italian. No contact lenses. Bring photo ID and insurance cards but do not bring anything valuable. 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 Verbalizes understanding. Reinforced clinic phone number to call back if questions. Normal [facility] Letter (Out)on 09-20-2022 Letter (Out) [id number] Renee Kim 1980 F Date Provider Department Center 09/20/2022 None-None [facility] Family History Problem Relation Age of Onset Hypertension Mother Hyperlipidemia Mother Colon polyps Mother Comments: Hx of colon polyps Hypertension Father Hyperlipidemia Father Lung cancer Maternal Grandfather Diabetes Maternal Grandfather Thyroid disease Other Comments: siblings Fibromyalgia Other Comments: siblings Family Status - Relation Status Age at Mother Father Maternal Grandfather Other Normal [facility] Telephoneon 09-20-2022 Telephone [id number] Renee Kim 1980 F Date Provider Department Center 09/20/2022 148-OVSALOME MCKINLEY [facility] Second Fl Family History Problem Relation Age of Onset Hypertension Mother Hyperlipidemia Mother Colon polyps Mother Comments: Hx of colon polyps Hypertension Father Hyperlipidemia Father Lung cancer Maternal Grandfather Diabetes Maternal Grandfather Thyroid disease Other Comments: siblings Fibromyalgia Other Comments: siblings Family Status - Relation Status Age at Mother Father Maternal Grandfather Other [facility] 36on 09-19-[address] Gonzales in [place] ED. States she discussed with patient, will discharge on prednisone taper and valium. No signs/sx of cauda equina, rectal tone normal. Advised Dr. Gonzales that I had talked to Dr. Snell, there is no indication for transfer, I am trying to arrange surgery for next week and will notify her once done. [facility] [address] [facility] called back asking to speak with you again on this patient. [facility] [address] Gonzales in [place] ED. Patient having increased back and LLE pain despite baclofen, celebrex, tylenol, oxycodone 10mg. Unable to stand due to pain. Patient requesting to be transferred to [facility] for surgery. Discussed with Dr. Gonzales not [...] Suggested Decadron to see if this helps. [facility] Prep for Procedureon 023 Prep for Procedure [id number] Renee Kim 1980 Date Provider Department Center 09/19/2022 148-OVITT, [facility] Second Fl Family History Problem Relation Age of Onset Hypertension Mother Hyperlipidemia Mother Colon polyps Mother Comments: Hx of colon polyps Hypertension Father Hyperlipidemia Father Lung cancer Maternal Grandfather Diabetes Maternal Grandfather Thyroid disease Other Comments: siblings Fibromyalgia Other Comments: siblings Family Status - Relation Status Age at Mother Father Maternal Grandfather Other Normal [facility] Telephoneon 09-19-2022 Telephone [id number] Renee Kim 1980 F Date Provider Department Center 09/19/2022 148-[place], [facility] Second Fl Family History Problem Relation Age of Onset Hypertension Mother Hyperlipidemia Mother Colon polyps Mother Comments: Hx of colon polyps Hypertension Father Hyperlipidemia Father Lung cancer Maternal Grandfather Diabetes Maternal Grandfather Thyroid disease Other Comments: siblings Fibromyalgia Other Comments: siblings Family Status - Relation Status Age at Mother Father Maternal Grandfather Other Normal [place] [id number] 36 Discussed with patient that I had [...] out later this week to schedule. Normal [place] [id number] 36 Left voicemail for patient to call back on Friday to discuss recent clinic visit. Normal [facility] Telephoneon 09-13-2022 Telephone [id number] Renee Kim 1980 F Date Provider Department [facility] Second Fl Family History Problem Relation Age of Onset Hypertension Mother Hyperlipidemia Mother Colon polyps Mother Comments: Hx of colon polyps Hypertension Father Hyperlipidemia Father Lung cancer Maternal Grandfather Diabetes Maternal Grandfather Thyroid disease Other Comments: siblings Fibromyalgia Other Comments: siblings Family Status - Relation Status Age at Mother Father Maternal Grandfather [facility] SUBJECTIVE: Chief complaint: Chronic back [...] several years. Currently seeing pain management at [facility] and has had injections without lasting or [...] C6, C8 (more content not included)... Normal [facility] Office Visiton 09-12-2022 Follow-up visit [id number] Renee Kim 1980 F Date Provider Department Center 09/12/2022 SALOME GÓMEZ [facility] Second Fl Family History Problem Relation Age of Onset Hypertension Mother Hyperlipidemia Mother Colon polyps Mother Comments: Hx of colon polyps Hypertension Father Hyperlipidemia Father Lung cancer Maternal Grandfather Diabetes Maternal Grandfather Thyroid disease Other Comments: siblings Fibromyalgia Other Comments: siblings Family Status - Relation Status Age at Mother Father Maternal Grandfather Other Level of Service:19475 [place] OFFICE/OUTPATIENT NEW MODERATE MDM 45-59 MINUTES Reason for Visit and Comments: New Patient [632] - Patient is here for a lumbar degenerative disc disease Normal [facility] MARIBEL by IFAon 07-08-2022 Antinuclear Antibodies, IFA Negative Normal [facility] Comment on above: Result Comment: Nega tive <1:80 Borderline 1:80 Positive >1:80 ICAP nomenclature: AC-0 For more information about Hep-2 cell patterns use ANApatterns.org, the official website for the International Consensus on Antinuclear Antibody (MARIBEL) Patterns (ICAP). Performed By: #### A NAIFA #### [facility] [address] [address] [address] Estuardo Buchanan RHEUMATOID FACTORon 07-07-19 23 RA Latex Turbid. <10.0 Normal <14.0 [facility] Comment on above: Performed By: #### R F #### [facility] [address] [address] [address] Estuardo Buchanan CBC AUTO DIFFon 07-04-2022 BASO # 0.1 103/ul Normal 0.0-0.1 [facility] Comment on above: Performed By: #### C BC #### [facility] [address] [address] [address] Estuardo Buchanan Basophils/100 WBC (Bld) 0.5 % Normal 0.2-2.0 [facility] Comment on above: Performed By: #### C BC #### [facility] [address] [place] [address] Dr. Estuardo Buchanan EO # 0.1 103/ul Normal 0.0-0.7 [facility] Comment on above: Performed By: #### C BC #### [facility] [address] [place] [address] Dr. Estuardo Buchanan Eosinophils/100 WBC (Bld) 0.9 % Normal 0.9-7.0 [facility] Comment on above: Performed By: #### C BC #### [facility] [address] [place] [address] Dr. Estuardo Buchanan Erythrocyte distribution width (RBC) [Ratio] 14.2 % Normal 11.0-15.0 [facility] Comment on above: Performed By: #### C BC #### [facility] [address] [place] [address] Dr. Estuardo Buchanan Hematocrit (Bld) [Volume fraction] 43.2 % Normal 36.0-48.0 [facility] Comment on above: Performed By: #### C BC #### [facility] [address] [place] [address] Dr. Estuardo Buchanan Hemoglobin (Bld) [Mass/Vol] 14.0 g/dL Normal 12.0-16.0 [facility] Comment on above: Performed By: #### C BC #### [facility] [address] [place] [address] Dr. Estuardo Buchanan IG # 0.07 10e3/ul Critically high 0.00-0.03 [facility] Comment on above: Performed By: #### C BC #### [facility] [address] [place] [address] Dr. Estuardo Buchanan IG % 0.5 % Normal 0.0-0.5 [facility] Comment on above: Performed By: #### C BC #### [facility] [address] [place] [address] Dr. Estuardo Buchanan LYMPH # 3.0 103/ul Normal 1.2-3.8 [facility] Comment on above: Performed By: #### C BC #### [facility] [address] [place] [address] Dr. Estuardo Buchanan Lymphocytes/100 WBC (Bld) 20.4 % Critically low 20.5-60.0 [facility] Comment on above: Performed By: #### C BC #### [facility] [address] [place] [address] Dr. Estuardo Buchanan MANUAL DIFF REQ NO Normal [facility] Comment on above: Performed By: #### C BC #### [facility] [address] [place] [address] Dr. Estuardo Buchanan MCH (RBC) [Entitic mass] 31.7 pg Normal 26.7-34.0 [facility] Comment on above: Performed By: #### C BC #### [facility] [address] [place] [address] Dr. Estuardo Buchanan MCHC (RBC) [Mass/Vol] 32.4 g/dL Normal 29.9-35.2 [facility] Comment on above: Performed By: #### C BC #### [facility] [address] [place] [address] Dr. Estuardo Buchanan MCV (RBC) [Entitic vol] 97.7 fL Normal 81.0-99.0 [facility] Comment on above: Performed By: #### C BC #### [facility] [address] [place] [address] Dr. Estuardo Buchanan MONO # 0.4 103/ul Normal 0.3-0.8 [facility] Comment on above: Performed By: #### C BC #### [facility] [address] [place] [address] Dr. Estuardo Buchanan Monocytes/100 WBC (Bld) 2.8 % Normal 1.7-12.0 [facility] Comment on above: Performed By: #### C BC #### [facility] [address] [place] [address] Dr. Estuardo Buchanan NEUT # 11.0 103/ul Critically high 1.4-6.5 [facility] Comment on above: Performed By: #### C BC #### [facility] [address] [address] [address] Estuardo Buchanan Neutrophils/100 WBC (Bld) 74.9 % Normal 43.0-75.0 [facility] Comment on above: Performed By: #### C BC #### [facility] [address] [place] [address] Dr. Estuardo Buchanan Platelet mean volume (Bld) [Entitic vol] 10.4 fL Normal 9.5-13.5 [facility] Comment on above: Performed By: #### C BC #### [facility] [address] [place] [address] Dr. Estuardo Buchanan PLT 285 103/ul Normal 150-450 [facility] Comment on above: Performed By: #### C BC #### [facility] [address] [place] [address] Dr. Estuardo Buchanan RBC 4.42 106/ul Normal 4.20-5.40 [facility] Comment on above: Performed By: #### C BC #### [facility] [address] [place] [address] Dr. Estuardo Buchanan WBC 14.7 103/ul Critically high 4.0-11.0 [facility] Comment on above: Performed By: #### C BC #### [facility] [address] [place] [address] Dr. Estuardo Buchanan CRPon 07-04-2022 CRP [Mass/Vol] mg/L Normal <=1.0 [facility] Comment on above: Performed By: #### C RP #### [facility] [address] [place] [address] Dr. Estuardo Buchanan SED RATE WESTERGRENon 2022 SED RATE 11 mm/hr Normal <=20 [facility] Comment on above: Performed By: #### C BC #### [facility] [address] [place] [address] Dr. Estuardo Buchanan CBC AUTO DIFFon 06-19-2022 BASO # 0.1 103/ul Normal 0.0-0.1 [facility] Comment on above: Performed By: #### C BC #### [facility] [address] [address] [address] Estuardo Buchanan Basophils/100 WBC (Bld) 0.5 % Normal 0.2-2.0 [facility] Comment on above: Performed By: #### C BC #### [facility] [address] [address] [address] Estuardo Buchanan EO # 0.1 103/ul Normal 0.0-0.7 [facility] Comment on above: Performed By: #### C BC #### [facility] [address] [place] [address] Dr. Estuardo Buchanan Eosinophils/100 WBC (Bld) 0.5 % Critically low 0.9-7.0 [facility] Comment on above: Performed By: #### C BC #### [facility] [address] [place] [address] Dr. Estuardo Buchanan Erythrocyte distribution width (RBC) [Ratio] 13.8 % Normal 11.0-15.0 [facility] Comment on above: Performed By: #### C BC #### [facility] [address] [place] [address] Dr. Estuardo Buchanan Hematocrit (Bld) [Volume fraction] 45.9 % Normal 36.0-48.0 [facility] Comment on above: Performed By: #### C BC #### [facility] [address] [place] [address] Dr. Estuardo Buchanan Hemoglobin (Bld) [Mass/Vol] 14.9 g/dL Normal 12.0-16.0 [facility] Comment on above: Performed By: #### C BC #### [facility] [address] [place] [address] Dr. Estuardo Buchanan IG # 0.06 10e3/ul Critically high 0.00-0.03 [facility] Comment on above: Performed By: #### C BC #### [facility] [address] [place] [address] Dr. Estuardo Buchanan IG % 0.4 % Normal 0.0-0.5 [facility] Comment on above: Performed By: #### C BC #### [facility] [address] [place] [address] Dr. Estuardo Buchanan LYMPH # 3.4 103/ul Normal 1.2-3.8 [facility] Comment on above: Performed By: #### C BC #### [facility] [address] [place] [address] Dr. Estuardo Buchanan Lymphocytes/100 WBC (Bld) 22.2 % Normal 20.5-60.0 [facility] Comment on above: Performed By: #### C BC #### [facility] [address] [place] [address] Dr. Estuardo Buchanan MANUAL DIFF REQ NO Normal [facility] Comment on above: Performed By: #### C BC #### [facility] [address] [place] [address] Dr. Estuardo Buchanan MCH (RBC) [Entitic mass] 31.6 pg Normal 26.7-34.0 [facility] Comment on above: Performed By: #### C BC #### [facility] [address] [place] [address] Dr. Estuardo Buchanan MCHC (RBC) [Mass/Vol] 32.5 g/dL Normal 29.9-35.2 [facility] Comment on above: Performed By: #### C BC #### [facility] [address] [place] [address] Dr. Estuardo Buchanan MCV (RBC) [Entitic vol] 97.2 fL Normal 81.0-99.0 [facility] Comment on above: Performed By: #### C BC #### [facility] [address] [place] [address] Dr. Estuardo Buchanan MONO # 0.5 103/ul Normal 0.3-0.8 [facility] Comment on above: Performed By: #### C BC #### [facility] [address] [place] [address] Dr. Estuardo Buchanan Monocytes/100 WBC (Bld) 3.0 % Normal 1.7-12.0 [facility] Comment on above: Performed By: #### C BC #### [facility] [address] [place] [address] Dr. Estuardo Buchanan NEUT # 11.2 103/ul Critically high 1.4-6.5 [facility] Comment on above: Performed By: #### C BC #### [facility] [address] [place] [address] Dr. Estuardo Buchanan Neutrophils/100 WBC (Bld) 73.4 % Normal 43.0-75.0 [facility] Comment on above: Performed By: #### C BC #### [facility] [address] [place] [address] Dr. Estuardo Buchanan Platelet mean volume (Bld) [Entitic vol] 10.4 fL Normal 9.5-13.5 [facility] Comment on above: Performed By: #### C BC #### [facility] [address] [place] [address] Dr. Estuardo Buchanan PLT 294 103/ul Normal 150-450 [facility] Comment on above: Performed By: #### C BC #### [facility] [address] [place] [address] Dr. Estuardo Buchanan RBC 4.72 106/ul Normal 4.20-5.40 [facility] Comment on above: Performed By: #### C BC #### [facility] [address] [place] [address] Dr. Estuardo Buchanan WBC 15.2 103/ul Critically high 4.0-11.0 [facility] Comment on above: Performed By: #### C BC #### [facility] [address] [place] [address] Dr. Estuardo Buchanan GLYCOHEMOGLOBIN A1Con 2022 ADA RECOMMENDATION SEE BELOW Normal [facility] Comment on above: Result Comment: ADA RECOMMENDED LIMIT 4.0 - 6.0 ADA THERAPEUTIC TARGET < 7.0 ACTION SUGGESTED > 7.0 Performed By: #### A 1C #### [facility] [address] [place] [address] Dr. Estuardo Buchanan Glucose [Mass/Vol] 100 mg/dL Normal [facility] Comment on above: Performed By: #### A 1C #### [facility] [address] [address] [address] Estuardo Buchanan HbA1c (Bld) [Mass fraction] 5.1 % Normal 4.5-6.2 [facility] Comment on above: Performed By: #### A 1C #### [facility] [address] [address] [address] Estuardo Buchanan LIPID PROFILEon 06-19-2022 CHOL-HDL RATIO NORM SEE BELOW Normal [facility] Comment on above: Result Comment: 3.3 - 4.4 LOW RISK 4.4 - 7.1 AVERAGE RISK 7.1 - 11.0 MODERATE RISK >11.0 HIGH RISK Performed By: #### T SH, CMP, LIPID #### [facility] [address] [address] [address] Estuardo Buchanan Cholesterol [Mass/Vol] 199 mg/dL Normal <=200 [facility] Comment on above: Performed By: #### T SH, CMP, LIPID #### [facility] [address] [address] [address] Estuardo Buchanan Cholesterol in HDL [Mass/Vol] 50 mg/dL Normal 40-60 [facility] Comment on above: Performed By: #### T SH, CMP, LIPID #### [facility] [address] [place] [address] Dr. Estuardo Buchanan Cholesterol in LDL [Mass/Vol] 130.0 mg/dL Normal [facility] Comment on above: Performed By: #### T SH, CMP, LIPID #### [facility] [address] [address] [address] Estuardo Buchanan Cholesterol.total/Ch olesterol in HDL [Mass ratio] 4.0 {ratio} Normal [facility] Comment on above: Performed By: #### T SH, CMP, LIPID #### [facility] [address] [place] [address] Dr. Estuardo Buchanan HDL NORMAL > or = 60 mg/dl - LOW CARDIOVASCULAR RISK <40 mg/dl - HIGH CARDIOVASCULAR RISK Normal [facility] Comment on above: Performed By: #### T SH, CMP, LIPID #### [facility] [address] [address] [address] Estuardo Buchanan LDL CALC NORMAL SEE BELOW Normal [facility] Comment on above: Result Comment: <100 mg/dl OPTIMAL 100 - 129 mg/dl NEAR OR ABOVE OPTIMAL 130 - 159 mg/dl BORDERLINE HIGH 160 - 189 mg/dl HIGH >190 mg/dl VERY HIGH Performed By: #### T SH, CMP, LIPID #### [facility] [address] [address] [address] Estuardo Buchanan Triglyceride [Mass/Vol] 95 mg/dL Normal <=150 [facility] Comment on above: Performed By: #### T SH, CMP, LIPID #### [facility] [address] [place] [address] Dr. Estuardo Buchanan VLDL CALC 19.0 mg/dL Normal [facility] Comment on above: Performed By: #### T SH, CMP, LIPID #### [facility] [address] [place] [address] Dr. Estuardo Buchanan PROF 14(COMP METB)on 023 Albumin [Mass/Vol] 4.2 g/dL Normal 3.4-5.0 [facility] Comment on above: Performed By: #### T SH, CMP, LIPID #### [facility] [address] [place] [address] Dr. Estuardo Buchanan Albumin/Globulin [Mass ratio] 1.2 {ratio} Normal [facility] Comment on above: Performed By: #### T SH, CMP, LIPID #### [facility] [address] [place] [address] Dr. Estuardo Buchanan ALP [Catalytic activity/Vol] 60 U/L Normal 46-116 [facility] Comment on above: Performed By: #### T SH, CMP, LIPID #### [facility] [address] [place] [address] Dr. Estuardo Buchanan ALT [Catalytic activity/Vol] 35 U/L Normal 14-59 [facility] Comment on above: Performed By: #### T SH, CMP, LIPID #### [facility] [address] [place] [address] Dr. Estuardo Buchanan Anion gap [Moles/Vol] 9.5 mmol/L Normal [facility] Comment on above: Performed By: #### T SH, CMP, LIPID #### [facility] [address] [place] [address] Dr. Estuardo Buchanan AST [Catalytic activity/Vol] 20 U/L Normal 15-37 [facility] Comment on above: Performed By: #### T SH, CMP, LIPID #### [facility] [address] [place] [address] Dr. Estuardo Buchanan Bilirubin [Mass/Vol] 0.4 mg/dL Normal 0.2-1.0 [facility] Comment on above: Performed By: #### T SH, CMP, LIPID #### [facility] [address] [place] [address] Dr. Estuardo Buchanan Calcium [Mass/Vol] 9.7 mg/dL Normal 8.5-10.1 [facility] Comment on above: Performed By: #### T SH, CMP, LIPID #### [facility] [address] [place] [address] Dr. Estuardo Buchanan Chloride [Moles/Vol] 105 mmol/L Normal 98-107 [facility] Comment on above: Performed By: #### T SH, CMP, LIPID #### [facility] [address] [place] [address] Dr. Esutardo Buchanan CO2 [Moles/Vol] 30.4 mmol/L Normal 21.0-32.0 [facility] Comment on above: Performed By: #### T SH, CMP, LIPID #### [facility] [address] [place] [address] Dr. Estuardo Buchanan Creatinine [Mass/Vol] 0.82 mg/dL Normal 0.55-1.02 [facility] Comment on above: Performed By: #### T SH, CMP, LIPID #### [facility] [address] [place] [address] Dr. Estuardo Buchanan EGFR-AF LEBANESE >60 Normal >=60 [facility] Comment on above: Performed By: #### T SH, CMP, LIPID #### [facility] [address] [address] [address] Estuardo Buchanan EGFR-NON AF LEBANESE >60 Normal >=60 [facility] Comment on above: Performed By: #### T SH, CMP, LIPID #### [facility] [address] [address] [address] Estuardo Buchanan Globulin (S) [Mass/Vol] 3.6 g/dL Normal [facility] Comment on above: Performed By: #### T SH, CMP, LIPID #### [facility] [address] [place] [address] Dr. Estuardo Buchanan Glucose [Mass/Vol] 91 mg/dL Normal 74-106 [facility] Comment on above: Performed By: #### T SH, CMP, LIPID #### [facility] [address] [place] [address] Dr. Estuardo Buchanan Potassium [Moles/Vol] 4.9 mmol/L Normal 3.5-5.1 [facility] Comment on above: Performed By: #### T SH, CMP, LIPID #### [facility] [address] [place] [address] Dr. Estuardo Buchanan Protein [Mass/Vol] 7.8 g/dL Normal 6.4-8.2 [facility] Comment on above: Performed By: #### T SH, CMP, LIPID #### [facility] [address] [place] [address] Dr. Estuardo Buchanan Sodium [Moles/Vol] 140 mmol/L Normal 136-145 [facility] Comment on above: Performed By: #### T SH, CMP, LIPID #### [facility] [address] [place] [address] Dr. Estuardo Buchanan Urea nitrogen [Mass/Vol] 16.0 mg/dL Normal 7.0-18.0 [facility] Comment on above: Performed By: #### T SH, CMP, LIPID #### [facility] [address] [place] [address] Dr. Estuardo Buchanan Urea nitrogen/Creatinine [Mass ratio] 19.5 mg/mg Normal [facility] Comment on above: Performed By: #### T SH, CMP, LIPID #### [facility] [address] [place] [address] Dr. Estuardo Buchanan TSHon 06-19-2022 TSH 1.108 uIU/mL Normal 0.358-3.740 [facility] Comment on above: Performed By: #### T SH, CMP, LIPID #### [facility] [address] [place] [address] Dr. Estuardo Buchanan QUANTIFERON TB GOLD PLUSon 0 03-24-2022 QuantiFERON Criteria Comment Normal [facility] Comment on above: Result Comment: Eugene tiFERON-TB [...] test. Performed By: #### Q NTTB #### [facility] [address] [place] [address] Dr. Estuardo Buchanan QuantiFERON Incubation Incubation performed. Normal [facility] Comment on above: Performed By: #### Q NTTB #### [facility] [address] [place] [address] Dr. Estuardo Buchanan QuantiFERON Mitogen Value >10.00 Normal [facility] Comment on above: Performed By: #### Q NTTB #### [facility] [address] [place] [address] Dr. Estuardo Buchanan QuantiFERON Nil Value 0.02 IU/mL Normal [facility] Comment on above: Performed By: #### Q NTTB #### [facility] [address] [place] [address] Dr. Estuardo Buchanan QuantiFERON TB1 Ag Value 0.03 IU/mL Normal [facility] Comment on above: Performed By: #### Q NTTB #### [facility] [address] [place] [address] Dr. Estuardo Buchanan QuantiFERON TB2 Ag Value 0.03 IU/mL Normal [facility] Comment on above: Performed By: #### Q NTTB #### [facility] [address] [place] [address] Dr. Estuardo Buchanan QuantiFERON-TB Gold Plus Negative Normal Negative [facility] Comment on above: Result Comment: No r esponse to M tuberculosis antigens detected. Infection with M tuberculosis is unlikely, but high risk individuals should be considered for additional testing (ATS/IDSA/CDC Clinical Practice Guidelines, 2017). The reference range is an Antigen minus Nil result of <0.35 IU/mL. Chemiluminescence immunoassay methodology Performed By: #### Q NTTB #### [facility] [address] [place] [address] Dr. Estuardo Buchanan HEPATITIS B SURFACE ANTIBODY , QUANTon 03-23-2022 Hepatitis B Surf AB Quant 279.6 mIU/mL Normal Immunity>9.9 [facility] Comment on above: Result Comment: Stat us of Immunity Anti-HBs Level Inconsistent with Immunity 0.0 - 9.9 Consistent with Immunity >9.9 Performed By: #### C BC #### [facility] [address] [place] [address] Dr. Estuardo Buchanan MMR IMMUNITYon 03-23-2022 Mumps Abs, IgG 120.0 AU/mL Normal Immune >10.9 [facility] Comment on above: Result Comment: Nega tive <9.0 Equivocal 9.0 - 10.9 Positive >10.9 A positive result generally indicates past exposure to Mumps virus or previous vaccination. Performed By: #### C BC #### [facility] [address] [place] [address] Dr. Estuardo Buchanan Rubella Antibodies, IgG 1.53 index Normal Immune >0.99 [facility] Comment on above: Result Comment: Non- immune <0.90 Equivocal 0.90 - 0.99 Immune >0.99 Performed By: #### C BC #### [facility] [address] [place] [address] Dr. Estuardo Buchanan Rubeola Ab, IgG 128.0 AU/mL Normal Immune >16.4 [facility] Comment on above: Result Comment: Nega tive <13.5 Equivocal 13.5 - 16.4 Positive >16.4 Presence of antibodies to Rubeola is presumptive evidence of immunity except when acute infection is suspected. Performed By: #### C BC #### [facility] [address] [place], [place] [address] Dr. Estuardo Buchanan VARICELLA IGG ABon 3 Varicella Zoster IgG 723 index Normal Immune >165 [facility] Comment on above: Result Comment: Nega tive <135 Equivocal 135 - 165 Positive >165 A positive result generally indicates exposure to the pathogen or administration of specific immunoglobulins, but it is not indication of active infection or stage of disease. Performed By: #### C BC #### [facility] [address] [address] [address] Estuardo Buchanan Encounters Encounter Date Encounter Type Care Provider Facility Start: 07-23-2023 End: 07-23-2023 ambulatory KATIE IGLESIAS Not Available Start: 07-02-2023 End: 07-02-2023 ambulatory MERT HARRISON Not Available Start: 10-08-2022 End: 10-08-2022 ambulatory [facility] Start: 09-25-2022 End: 09-26-2022 ambulatory [facility] Start: 09-25-2022 End: 09-26-2022 Evaluation and management of inpatient [facility] Start: 09-12-2022 End: 09-13-2022 ambulatory [facility] Start: 09-12-2022 End: 09-12-2022 ambulatory [facility] Start: 09-06-2022 End: 09-07-2022 ambulatory [facility] Start: 07-11-2022 ambulatory NARENDRANATH LAKSHMIPATHY . Facility:[facility] Start: 07-09-2022 End: 07-09-2022 ambulatory NARENDRANATH LAKSHMIPATHY . Facility:[facility] Start: 07-04-2022 End: 07-05-[address] MERT HARRISON Facility:[facility] Start: 06-23-2022 Encounter for genera l adult medical examination without abnormal findings DR MERT HARRISON [facility] Start: 06-19-2022 End: 06-20-[address] MERT HARRISON Facility:[facility] Start: 06-19-2022 End: 06-20-2022 Encounter for general adult medical examination without abnormal findings DR MERT HARRISON Facility:[facility] Start: 04-18-2022 End: 04-19-2022 ambulatory MERVAT BROWN . Facility:[facility] Start: 04-16-[address] GUILLERMO ARCHIBALD . Faci lity:[facility] Start: 03-22-2022 End: 03-23-2022 ambulatory NUSRAT LIAO Facility:[facility] Payers Date Payer Category Payer Unknown [id number] 2.16.84 [id number] 1978 Unknown [id number] 2.16.84 [id number] 1978 Unknown [id number] 2.16.84 [id number] 1978 Unknown [id number] 2.16.84 [id number] 1978 Unknown [id number] 2.16.84 [id number] 1978 Unknown [id number] 2.16.84 [id number] 1978 Unknown [id number] 2.16.84 [id number] 1978 Unknown [id number] 2.16.84 [id number] 1959 Self-pay [id number] 1961 Unknown [id number] Unknown [id number] 2.16.84 [id number] Clinical Notes 04-18-2022 to 10-08-2022 Note Date [...] or sooner if new or worsening problems. [facility] 10-08-2022 Note Subjective: HPI: Mrs. Kim is [...] all other extremities. 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 Assessment: Mrs. Kim had an L4 laminotomy to treat a lumbar disc prolapse with compression radiculopathy that caused chronic leg and back pain. Plan: See physical therapist for leg exercises. Follow-up with neurosurgery clinic in 1 month. Kim Dhillon, MS3 [facility] 09-26-2022 Note Neurosurgery Progres s Note Post-operative [...] OR oxyCODONE OR oxyCODONE Objective: Vitals: Vitals: 09/25/221944 BP: 130/81 Pulse: 97 Resp: 23 Temp: 36.7 ???C (98.1 ???F) SpO2: 98% I/O: Intake/Output Summary (Last 24 hours) at 09/26/2022 1031 Last data filed at 09/25/2022 1930 Gross per 24 hour Intake 1243 ml Output 337 ml Net 906 ml Drains: Output by Drain (mL) 09/24/22 07 - 09/24/22 1859 09/24/22 1900 - 09/25/22 [...] discharge criteria. Will plan for home today. [facility] 09-26-2022 Note Occupational Therapy Occupational Therapy Evaluation [...] DISCECTOMY Bilateral 09/25/2022 Bilateral L4-5 diskectomy, Dr. Burton ULNAR NERVE REPAIR Right right ulnar compression [...] Level of Function Prior Function Level of [place]: Independent with ADLs and functional transfers, Independent [...] Eating meals?: None (Independent) Total Score OT [facility]: 24 Assessment/Plan OT Assessment OT Education/Comments: extensive discussion regarding general home safety with new BLT precautions with good verbal teach back Plan OT Plan: No skilled OT OT Discharge Recommendations: Home Equipment Recommended: (none) OT - Discharge Recommendations Placed: Yes OT Goals Multi-Disciplinary Problems (from Occupational Therapy) Active Problems Not on file [facility] 09-26-2022 Note Physical Therapy Physical Therapy Evaluation Patient Name: Renee Kim : 1980 Today's Date: 09/26/2022 Session time: [id number] Present hx: Reports chronic low back pain [...] Level of Function Prior Function Level of [place]: Independent with ADLs and functional transfers, Independent [...] the LLE Pr (more content not included)... [facility] 09-26-2022 Note Progress note: The patient reports experiencing pain relief after spinal decompression procedure. The patient is alert and oriented. The patient has been able to ambulate post-op. Kim Dhillon, Medical Student [facility] 09-25-2022 Note Patient: Renee larsen Procedure Summary Date: 09/25/22 Room / Location: [facility] OPERATING ROOM 03 / [facility] Operating Room Anesthesia Start: 1049 Anesthesia Stop: [...] per anesthesia protocol. No notable events documented. [facility] 09-25-2022 Note Airway Date/Time: 09/25/2022 11:05 AM Urgency: elective Airway not difficult General Information and Staff Patient location during procedure: OR Anesthesiologist: Marco Abdi MD Resident/HUMAN RESOURCES MANAGER/CAA: LE Oh Performed: resident/HUMAN RESOURCES MANAGER/CAA Indications and Patient Condition Indications for airway [...] 1 Number of other approaches attempted: 0 [facility] 09-25-2022 Note Patient: Renee larsen Procedure Information Date/Time: 09/25/22 1030 Procedure: L4 laminotomies with L4-L5 discectomy - 1.5 hours, C arm, prone on open Ernst, downpushing curettes Location: [facility] OPERATING ROOM 03 / [facility] Operating Room Surgeons: Jenny Snell MD Relevant [...] Plan discussed with CAA. Additional Equipment Requests [facility] 09-13-[address] Snell case. Diagnosis: Lumbar disc prolapse with radiculopathy. Procedure: L4 laminotomies, L4-L5 discectomy. Time 1.5 hours. Prone on open Ernst. Need C arm and downpushing curettes. [facility] 09-12-2022 Note SUBJECTIVE: Chief complaint: Chronic back [...] several years. Currently seeing pain management at [facility] and has had injections without lasting or [...] right C6, C8 (more content not included)... [facility] 04-18-2022 Note PAIN MANAGEMENT CONS ULTATION CONSULTATION [...] wished to proceed with the plan. [facility] Summary Purpose Family History No Family History Records FoundNo Family History Records FoundNo Family History Records Found Advance Directives No Advanced Directives Records FoundNo Advanced Directives Records FoundNo Advanced Directives Records Found Additional Source Comments INFORMATION SOURCE (unrecogn ized section and content) DATE CREATED AUTHOR 07/10/2022 [facility] DATE CREATED AUTHOR AUTHOR'S ORGANIZ ATION 10/12/2022 [facility] DATE CREATED AUTHOR AUTHOR'S ORGANIZ ATION 07/24/2023 [facility] EPIC FOR RECORDS PERTAINING TO PATIENTS WHO ARE [...] BE BASED ON THE PRIMARY CLINICAL RECORDS. [facility]. provides no warranty or guarantee of the accuracy or completeness of information in this document.
== END 2023-08-01 06:56 | disposition home or self-care (01) ==
LOC: MAMMO 06:55
PROVIDERS: PCP Family Medicine; Visit Provider Family Medicine
DX: Z12.31 Encounter for screening mammogram for malignant neoplasm of breast (principal); Z80.1 Family history of malignant neoplasm of trachea, bronchus and lung
CPT/HCPCS: 77063; 77067

== ENCOUNTER 2023-08-12 13:56 | Outpatient (OUT) | payer BC, SELFPAY | END 2023-08-12 13:57 | disposition home or self-care (01) | LOC: PST 13:56 | PROVIDERS: PCP Family Medicine; Visit Provider Surgery | DX: Z01.818 Encounter for other preprocedural examination (principal); Z12.11 Encounter for screening for malignant neoplasm of colon ==

== ENCOUNTER 2023-08-19 06:29 | Day surgery (SDC) | payer BC, SELFPAY ==
--- OUTSIDE RECORDS SUMMARY | 2023-08-19 06:31 | XMS_ITS | CCD ---
Author Organization [facility] Care Team Providers Care Manager Skilled Name Role Phone NUSRAT LIAO Admitting Unavailable NUSRAT LIAO Attending Unavailable NUSRAT LIAO Consulting Unavailable JERRELL, DR CUEVAS Primary Care Unavailable LAKSHMIPATHY ., MERVAT Attending Katie vailable JERERLL, DR CUEVAS Primary Care Unavailable LAKSHMIPATHY ., [...] sources) Morphine; Translations: [MORPHINE] Drug Allergy [facility] Repository (1 source) ALLERGIES NOT ON FILE; Translations: [ALLERGIES NOT ON FILE] Propensity to adverse reactions (disorder) [facility] Repository Problems Active Problems Problem Classification Problem [...] Range Facility Office Visiton 10-08-2022 Follow-up visit [id number] Ochoa Kimssica 1980 F Date Provider Department Center 10/08/2022 SALOME GÓMEZ [facility] Second Fl Family History Problem Relation Age of Onset Hypertension Mother Hyperlipidemia Mother Colon polyps Mother Comments: Hx of colon polyps Hypertension Father Hyperlipidemia Father Lung cancer Maternal Grandfather Diabetes Maternal Grandfather Thyroid disease Other Comments: siblings Fibromyalgia Other Comments: siblings Family Status - Relation Status Age at Mother Father Maternal Grandfather Other Level of Service:96834 CA POSTOP FOLLOW UP VISIT RELATED TO ORIGINAL [...] bed w/o being in no pain. Normal [facility] 30on 09-26-2022 30 The patient is Moderately Stable - Low risk of patient condition declining or worsening The patient's goals for the shift include rest The clinical goals for the shift include vss Normal [facility] DSon 09-26-2022 DS Admission Admitted [...] Medications These medications were sent to [facility] - [place], [place] - [address] [place] [address], [facility] [address] oxyCODONE-acetaminop hen 5-325 mg tablet Activity Normal activity as tolerated No driving until seen in clinic for follow-up. No strenuous activity Showering instructions: It is OK to shower as normal on the day after surgery. Do not submerge the wounds in water such as in bathtubs, hot tubs, or swimming pools. 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 Diet [...] is performed under the ED CLIA certificate #[id number]. TYPE AND SCREEN ABO Grouping O Rh Type POS Ab Scrn NEG Nutrition Screen Issues Requiring Follow-Up None. Outpatient Follow-Up Future Appointments Date Time Provider Department Center 10/08/2022 2:00 PM Salome Farmer NP [facility] Second Fl Test Results Pending At Discharge [facility] HPon 09-25-2022 HP H&P reviewed. The patient was examined and there are no changes to the H&P. [facility] HP H&P reviewed. The patient was examined and there are no changes to the H&P. [facility] NURSNOTEon 09-25-2022 NURSNOTE Patient complaining of numbness in her left leg from the knee down. Dr. Snell notified, no orders received at this time. [facility] OPNOTEon 09-25-2022 OPNOTE L4 laminotomies with L4-L5 discectomy Operative Note Date: 09/25/2022 Location: [facility] OR Name: Renee Kim, : 1980, Diagnosis Pre-op Diagnosis * Lumbar disc prolapse with compression radiculopathy [M51.16] Post-op Diagnosis * Lumbar disc prolapse with compression radiculopathy [M51.16] Procedures L4 laminotomies with L4-L5 discectomy 48532 - CA LAMINECTOMY W/O FFD 1/2 VERT SEG LUMBAR Bilateral L4 laminotomies for bilateral L4-5 discectomy and foraminotomies. Surgeons * Jenny Finley - Primary Procedure Summary Anesthesia: General ASA: II Estimated Blood Loss: 37 mL Drains: * None in log * Staff: Drywall Metal Stud Worker: Murray Xavier RN Relief Drywall Metal Stud Worker: Juliana Cho RN Relief Scrub: Lisy Parikh CST Scrub Person: Yudi White CST Radio Tester: Brandon Vidal CSA Indications: Renee Kim is [...] to the left laminotomy defect. Here a [place] 4 explore was passed lateral to the [...] mobilization and removal of the disc material [place] explorer could be passed ventral to the thecal sac without evidence of substantial stenosis, although a portion of disc material with some stenosis could be palpated on the contralateral side of the spinal canal. A #3 [place] (more content not included)... Normal [facility] OPNOTE Date: 09/25/2022 Location: [facility] OR Name: Renee Kim, : 1980, Diagnosis Pre-op Diagnosis * Lumbar disc prolapse with compression radiculopathy [M51.16] Post-op Diagnosis * Lumbar disc prolapse with compression radiculopathy [M51.16] Procedures L4 laminotomies with L4-L5 discectomy 47609 - CA LAMINECTOMY W/O FFD 1/2 VERT SEG LUMBAR Bilateral L4 laminotomy, diskectomy, and foraminotomy. Surgeons * Jenny Snell - Primary Procedure Summary Anesthesia: General ASA: II Estimated Blood Loss: Minimal Drains: * None in log * Staff: Drywall Metal Stud Worker: Murray Xavier RN Relief Drywall Metal Stud Worker: Juliana Cho RN Relief Scrub: Lisy Parikh, WEBFED OFFSET PRESS OPERATOR Scrub Person: Yudi White, MRITA Radio Tester: Brandon Vidal CSA Indications: Renee Kim is [...] I performed the procedure. Jenny Snell Normal [facility] POCT GLUCOSE METER UNSOLICIT ED RESULTSon 09-25-2022 Glucose [Mass/Vol] 117 mg/dL High 70-105 [facility] Comment on above: Order Comment: Waive d Testing in the ED is performed under the ED CLIA certificate #[id number]. Result Comment: acle ment Performed By: #### L [id number] ####[facility] ([facility]AKER)[address] [place] [address] TYPE AND SCREENon 09-25-2022 AB SCREEN Negative Normal [facility] Comment on above: Performed By: #### L [id number] #### [facility] , ABO group Nom (Bld) O Normal [facility] Comment on above: Performed By: #### L [id number] #### [facility] , RH TYPE IN BLOOD Positive Normal [facility] Comment on above: Performed By: #### L [id number] #### [facility] , Orders Onlyon 09-23-2022 Orders Only [id number] Fina Kimica 1980 F Date Provider Department Center 09/23/2022 Alfonso-MIRNA ARDON [facility] PAT [place] Medical C Family History Problem Relation Age of Onset Hypertension Mother Hyperlipidemia Mother Colon polyps Mother Comments: Hx of colon polyps Hypertension Father Hyperlipidemia Father Lung cancer Maternal Grandfather Diabetes Maternal Grandfather Thyroid disease Other Comments: siblings Fibromyalgia Other Comments: siblings Family Status - Relation Status Age at Mother Father Maternal Grandfather Other Normal [facility] 36on 09-20-2022 36 Precert submitted for surgery but pending. Has [place] and precert normally takes 10-14 days, [...] discuss with Dr. Snell if questions. Normal [facility] 36 Spoke with patient. Advised that we [...] send prescription. Will fax lab orders to [facility], states will have drawn today after work. No perfume, deodorant, lotion, jewelry, makeup, nail guamanian. No contact lenses. Bring photo ID and insurance cards but do not bring anything valuable. Discussed postop activity restrictions, incision care, pain meds for limited time after surgery, postop appt, no driving while on pain meds or meds that cause drowsiness, need for driver courier home after discharge, overnight admission. Verbalizes understanding. Reinforced clinic phone number to call back if questions. Normal [facility] Letter (Out)on 09-20-2022 Letter (Out) [id number] Renee Kim 1980 F Date Provider Department Center 09/20/2022 None-None [facility] AUTH [place] Medical C Family History Problem Relation Age of Onset Hypertension Mother Hyperlipidemia Mother Colon polyps Mother Comments: Hx of colon polyps Hypertension Father Hyperlipidemia Father Lung cancer Maternal Grandfather Diabetes Maternal Grandfather Thyroid disease Other Comments: siblings Fibromyalgia Other Comments: siblings Family Status - Relation Status Age at Mother Father Maternal Grandfather Other Normal [facility] Telephoneon 09-20-2022 Telephone [id number] Renee Kim 1980 F Date Provider Department Center 09/20/2022 148-OVSALOME MCKINLEY [facility] Second Fl Family History Problem Relation Age of Onset Hypertension Mother Hyperlipidemia Mother Colon polyps Mother Comments: Hx of colon polyps Hypertension Father Hyperlipidemia Father Lung cancer Maternal Grandfather Diabetes Maternal Grandfather Thyroid disease Other Comments: siblings Fibromyalgia Other Comments: siblings Family Status - Relation Status Age at Mother Father Maternal Grandfather Other [facility] 36on 09-19-[address] Gonzales in [place] ED. States she discussed with patient, will discharge on prednisone taper and valium. No signs/sx of cauda equina, rectal tone normal. Advised Dr. Gonzales that I had talked to Dr. Snell, there is no indication for transfer, I am trying to arrange surgery for next week and will notify her once done. [facility] 36 Paulina from [facility] called back asking to speak with you again on this patient. [facility] [address] Gonzales in [place] ED. Patient having increased back and LLE pain despite baclofen, celebrex, tylenol, oxycodone 10mg. Unable to stand due to pain. Patient requesting to be transferred to [facility] for surgery. Discussed with Dr. Gonzales not [...] Suggested Decadron to see if this helps. [facility] Prep for Procedureon 023 Prep for Procedure [id number] Renee Kim 1980 Date Provider Department Center 09/19/2022 [id number], [facility] SUR[facility] Second Fl Family History Problem Relation Age of Onset Hypertension Mother Hyperlipidemia Mother Colon polyps Mother Comments: Hx of colon polyps Hypertension Father Hyperlipidemia Father Lung cancer Maternal Grandfather Diabetes Maternal Grandfather Thyroid disease Other Comments: siblings Fibromyalgia Other Comments: siblings Family Status - Relation Status Age at Mother Father Maternal Grandfather Other Normal [facility] Telephoneon 09-19-2022 Telephone [id number] Renee Kim 1980 F Date Provider Department Center 09/19/2022 [id number], [facility] Second Fl Family History Problem Relation Age of Onset Hypertension Mother Hyperlipidemia Mother Colon polyps Mother Comments: Hx of colon polyps Hypertension Father Hyperlipidemia Father Lung cancer Maternal Grandfather Diabetes Maternal Grandfather Thyroid disease Other Comments: siblings Fibromyalgia Other Comments: siblings Family Status - Relation Status Age at Mother Father Maternal Grandfather Other Normal [place] [id number] 36 Discussed with patient that I had [...] out later this week to schedule. Normal [place] [id number] 36 Left voicemail for patient to call back on Friday to discuss recent clinic visit. Normal [facility] Telephoneon 09-13-2022 Telephone [id number] Renee Kim 1980 F Date Provider Department Center [facility]/13[facility]2022 [facility] Second Fl Family History Problem Relation Age of Onset Hypertension Mother Hyperlipidemia Mother Colon polyps Mother Comments: Hx of colon polyps Hypertension Father Hyperlipidemia Father Lung cancer Maternal Grandfather Diabetes Maternal Grandfather Thyroid disease Other Comments: siblings Fibromyalgia Other Comments: siblings Family Status - Relation Status Age at Mother Father Maternal Grandfather [facility] SUBJECTIVE: Chief complaint: Chronic [...] several years. Currently seeing pain management at [facility] and has had injections without lasting or [...] C6, C8 (more content not included)... Normal [facility] Office Visiton 09-12-2022 Follow-up visit [id number] Renee Kim 1980 F Date Provider Department Center 09/12/2022 SALOME GÓMEZ [facility] Second Fl Family History Problem Relation Age of Onset Hypertension Mother Hyperlipidemia Mother Colon polyps Mother Comments: Hx of colon polyps Hypertension Father Hyperlipidemia Father Lung cancer Maternal Grandfather Diabetes Maternal Grandfather Thyroid disease Other Comments: siblings Fibromyalgia Other Comments: siblings Family Status - Relation Status Age at Mother Father Maternal Grandfather Other Level of Service:37069 CA OFFICE/OUTPATIENT NEW MODERATE MDM 45-59 MINUTES Reason for Visit and Comments: New Patient [632] - Patient is here for a lumbar degenerative disc disease Normal [facility] MARIBEL by IFAon 07-08-2022 Antinuclear Antibodies, IFA Negative Normal [facility] Comment on above: Result Comment: Nega tive <1:80 Borderline 1:80 Positive >1:80 ICAP nomenclature: AC-0 For more information about Hep-2 cell patterns use ANApatterns.org, the official website for the International Consensus on Antinuclear Antibody (MARIBEL) Patterns (ICAP). Performed By: #### A NAIFA #### [facility] [address] [address] [address] Estuardo Buchanan RHEUMATOID FACTORon 07-07-19 23 RA Latex Turbid. <10.0 Normal <14.0 [facility] Comment on above: Performed By: #### R F #### [facility] [address] [address] [address] Estuardo Buchanan CBC AUTO DIFFon 07-04-2022 BASO # 0.1 103/ul Normal 0.0-0.1 [facility] Comment on above: Performed By: #### C BC #### [facility] [address] [address] [address] Estuardo Buchanan Basophils/100 WBC (Bld) 0.5 % Normal 0.2-2.0 [facility] Comment on above: Performed By: #### C BC #### [facility] [address] [place] [address] Dr. Estuardo Buchanan EO # 0.1 103/ul Normal 0.0-0.7 [facility] Comment on above: Performed By: #### C BC #### [facility] [address] [place] [address] Dr. Estuardo Buchanan Eosinophils/100 WBC (Bld) 0.9 % Normal 0.9-7.0 [facility] Comment on above: Performed By: #### C BC #### [facility] [address] [place] [address] Dr. Estuardo Buchanan Erythrocyte distribution width (RBC) [Ratio] 14.2 % Normal 11.0-15.0 [facility] Comment on above: Performed By: #### C BC #### [facility] [address] [place] [address] Dr. Estuardo Buchanan Hematocrit (Bld) [Volume fraction] 43.2 % Normal 36.0-48.0 [facility] Comment on above: Performed By: #### C BC #### [facility] [address] [place] [address] Dr. Estuardo Buchanan Hemoglobin (Bld) [Mass/Vol] 14.0 g/dL Normal 12.0-16.0 [facility] Comment on above: Performed By: #### C BC #### [facility] [address] [place] [address] Dr. Estuardo Buchanan IG # 0.07 10e3/ul Critically high 0.00-0.03 [facility] Comment on above: Performed By: #### C BC #### [facility] [address] [place] [address] Dr. Estuardo Buchanan IG % 0.5 % Normal 0.0-0.5 [facility] Comment on above: Performed By: #### C BC #### [facility] [address] [place] [address] Dr. Estuardo Buchanan LYMPH # 3.0 103/ul Normal 1.2-3.8 [facility] Comment on above: Performed By: #### C BC #### [facility] [address] [place] [address] Dr. Estuardo Buchanan Lymphocytes/100 WBC (Bld) 20.4 % Critically low 20.5-60.0 [facility] Comment on above: Performed By: #### C BC #### [facility] [address] [place] [address] Dr. Estuardo Buchanan MANUAL DIFF REQ NO Normal [facility] Comment on above: Performed By: #### C BC #### [facility] [address] [place] [address] Dr. Estuardo Buchanan MCH (RBC) [Entitic mass] 31.7 pg Normal 26.7-34.0 [facility] Comment on above: Performed By: #### C BC #### [facility] [address] [place] [address] Dr. Estuardo Buchanan MCHC (RBC) [Mass/Vol] 32.4 g/dL Normal 29.9-35.2 [facility] Comment on above: Performed By: #### C BC #### [facility] [address] [place] [address] Dr. Estuardo Buchanan MCV (RBC) [Entitic vol] 97.7 fL Normal 81.0-99.0 [facility] Comment on above: Performed By: #### C BC #### [facility] [address] [place] [address] Dr. Estuardo Buchanan MONO # 0.4 103/ul Normal 0.3-0.8 [facility] Comment on above: Performed By: #### C BC #### [facility] [address] [place] [address] Dr. Estuardo Buchanan Monocytes/100 WBC (Bld) 2.8 % Normal 1.7-12.0 [facility] Comment on above: Performed By: #### C BC #### [facility] [address] [place] [address] Dr. Estuardo Buchanan NEUT # 11.0 103/ul Critically high 1.4-6.5 [facility] Comment on above: Performed By: #### C BC #### [facility] [address] [address] [address] Estuardo Buchanan Neutrophils/100 WBC (Bld) 74.9 % Normal 43.0-75.0 [facility] Comment on above: Performed By: #### C BC #### [facility] [address] [place] [address] Dr. Estuardo Buchanan Platelet mean volume (Bld) [Entitic vol] 10.4 fL Normal 9.5-13.5 [facility] Comment on above: Performed By: #### C BC #### [facility] [address] [place] [address] Dr. Estuardo Buchanan PLT 285 103/ul Normal 150-450 [facility] Comment on above: Performed By: #### C BC #### [facility] [address] [place] [address] Dr. Estuardo Buchanan RBC 4.42 106/ul Normal 4.20-5.40 [facility] Comment on above: Performed By: #### C BC #### [facility] [address] [place] [address] Dr. Estuardo Buchanan WBC 14.7 103/ul Critically high 4.0-11.0 [facility] Comment on above: Performed By: #### C BC #### [facility] [address] [place] [address] Dr. Estuardo Buchanan CRPon 07-04-2022 CRP [Mass/Vol] mg/L Normal <=1.0 [facility] Comment on above: Performed By: #### C RP #### [facility] [address] [place] [address] Dr. Estuardo Buchanan SED RATE WESTERGRENon 2022 SED RATE 11 mm/hr Normal <=20 [facility] Comment on above: Performed By: #### C BC #### [facility] [address] [place] [address] Dr. Estuardo Buchanan CBC AUTO DIFFon 06-19-2022 BASO # 0.1 103/ul Normal 0.0-0.1 [facility] Comment on above: Performed By: #### C BC #### [facility] [address] [address] [address] Estuardo Buchanan Basophils/100 WBC (Bld) 0.5 % Normal 0.2-2.0 [facility] Comment on above: Performed By: #### C BC #### [facility] [address] [address] [address] Estuardo Buchanan EO # 0.1 103/ul Normal 0.0-0.7 [facility] Comment on above: Performed By: #### C BC #### [facility] [address] [place] [address] Dr. Estuardo Buchanan Eosinophils/100 WBC (Bld) 0.5 % Critically low 0.9-7.0 [facility] Comment on above: Performed By: #### C BC #### [facility] [address] [place] [address] Dr. Estuardo Buchanan Erythrocyte distribution width (RBC) [Ratio] 13.8 % Normal 11.0-15.0 [facility] Comment on above: Performed By: #### C BC #### [facility] [address] [place] [address] Dr. Estuardo Buchanan Hematocrit (Bld) [Volume fraction] 45.9 % Normal 36.0-48.0 [facility] Comment on above: Performed By: #### C BC #### [facility] [address] [place] [address] Dr. Estuardo Buchanan Hemoglobin (Bld) [Mass/Vol] 14.9 g/dL Normal 12.0-16.0 [facility] Comment on above: Performed By: #### C BC #### [facility] [address] [place] [address] Dr. Estuardo Buchanan IG # 0.06 10e3/ul Critically high 0.00-0.03 [facility] Comment on above: Performed By: #### C BC #### [facility] [address] [place] [address] Dr. Estuardo Buchanan IG % 0.4 % Normal 0.0-0.5 [facility] Comment on above: Performed By: #### C BC #### [facility] [address] [place] [address] Dr. Estuardo Buchanan LYMPH # 3.4 103/ul Normal 1.2-3.8 [facility] Comment on above: Performed By: #### C BC #### [facility] [address] [place] [address] Dr. Estuardo Buchanan Lymphocytes/100 WBC (Bld) 22.2 % Normal 20.5-60.0 [facility] Comment on above: Performed By: #### C BC #### [facility] [address] [place] [address] Dr. Estuardo Buchanan MANUAL DIFF REQ NO Normal [facility] Comment on above: Performed By: #### C BC #### [facility] [address] [place] [address] Dr. Estuardo Buchanan MCH (RBC) [Entitic mass] 31.6 pg Normal 26.7-34.0 [facility] Comment on above: Performed By: #### C BC #### [facility] [address] [place] [address] Dr. Estuardo Buchanan MCHC (RBC) [Mass/Vol] 32.5 g/dL Normal 29.9-35.2 [facility] Comment on above: Performed By: #### C BC #### [facility] [address] [place] [address] Dr. Estuardo Buchanan MCV (RBC) [Entitic vol] 97.2 fL Normal 81.0-99.0 [facility] Comment on above: Performed By: #### C BC #### [facility] [address] [place] [address] Dr. Estuardo Buchanan MONO # 0.5 103/ul Normal 0.3-0.8 [facility] Comment on above: Performed By: #### C BC #### [facility] [address] [place] [address] Dr. Estuardo Buchanan Monocytes/100 WBC (Bld) 3.0 % Normal 1.7-12.0 [facility] Comment on above: Performed By: #### C BC #### [facility] [address] [place] [address] Dr. Estuardo Buchanan NEUT # 11.2 103/ul Critically high 1.4-6.5 [facility] Comment on above: Performed By: #### C BC #### [facility] [address] [place] [address] Dr. Estuardo Buchanan Neutrophils/100 WBC (Bld) 73.4 % Normal 43.0-75.0 [facility] Comment on above: Performed By: #### C BC #### [facility] [address] [place] [address] Dr. Estuardo Buchanan Platelet mean volume (Bld) [Entitic vol] 10.4 fL Normal 9.5-13.5 [facility] Comment on above: Performed By: #### C BC #### [facility] [address] [place] [address] Dr. Estuardo Buchanan PLT 294 103/ul Normal 150-450 [facility] Comment on above: Performed By: #### C BC #### [facility] [address] [place] [address] Dr. Estuardo Buchanan RBC 4.72 106/ul Normal 4.20-5.40 [facility] Comment on above: Performed By: #### C BC #### [facility] [address] [place] [address] Dr. Estuardo Buchanan WBC 15.2 103/ul Critically high 4.0-11.0 [facility] Comment on above: Performed By: #### C BC #### [facility] [address] [place] [address] Dr. Estuardo Buchanan GLYCOHEMOGLOBIN A1Con 2022 ADA RECOMMENDATION SEE BELOW Normal [facility] Comment on above: Result Comment: ADA RECOMMENDED LIMIT 4.0 - 6.0 ADA THERAPEUTIC TARGET < 7.0 ACTION SUGGESTED > 7.0 Performed By: #### A 1C #### [facility] [address] [place] [address] Dr. Estuardo Buchanan Glucose [Mass/Vol] 100 mg/dL Normal [facility] Comment on above: Performed By: #### A 1C #### [facility] [address] [address] [address] Estuardo Buchanan HbA1c (Bld) [Mass fraction] 5.1 % Normal 4.5-6.2 [facility] Comment on above: Performed By: #### A 1C #### [facility] [address] [address] [address] Estuardo Buchanan LIPID PROFILEon 06-19-2022 CHOL-HDL RATIO NORM SEE BELOW Normal [facility] Comment on above: Result Comment: 3.3 - 4.4 LOW RISK 4.4 - 7.1 AVERAGE RISK 7.1 - 11.0 MODERATE RISK >11.0 HIGH RISK Performed By: #### T SH, CMP, LIPID #### [facility] [address] [address] [address] Estuardo Buchanan Cholesterol [Mass/Vol] 199 mg/dL Normal <=200 [facility] Comment on above: Performed By: #### T SH, CMP, LIPID #### [facility] [address] [address] [address] Estuardo Buchanan Cholesterol in HDL [Mass/Vol] 50 mg/dL Normal 40-60 [facility] Comment on above: Performed By: #### T SH, CMP, LIPID #### [facility] [address] [place] [address] Dr. Estuardo Buchanan Cholesterol in LDL [Mass/Vol] 130.0 mg/dL Normal [facility] Comment on above: Performed By: #### T SH, CMP, LIPID #### [facility] [address] [address] [address] Estuardo Buchanan Cholesterol.total/Ch olesterol in HDL [Mass ratio] 4.0 {ratio} Normal [facility] Comment on above: Performed By: #### T SH, CMP, LIPID #### [facility] [address] [place] [address] Dr. Estuardo Buchanan HDL NORMAL > or = 60 mg/dl - LOW CARDIOVASCULAR RISK <40 mg/dl - HIGH CARDIOVASCULAR RISK Normal [facility] Comment on above: Performed By: #### T SH, CMP, LIPID #### [facility] [address] [address] [address] Estuardo Buchanan LDL CALC NORMAL SEE BELOW Normal [facility] Comment on above: Result Comment: <100 mg/dl OPTIMAL 100 - 129 mg/dl NEAR OR ABOVE OPTIMAL 130 - 159 mg/dl BORDERLINE HIGH 160 - 189 mg/dl HIGH >190 mg/dl VERY HIGH Performed By: #### T SH, CMP, LIPID #### [facility] [address] [address] [address] Estuadro Buchanan Triglyceride [Mass/Vol] 95 mg/dL Normal <=150 [facility] Comment on above: Performed By: #### T SH, CMP, LIPID #### [facility] [address] [place] [address] Dr. Estuardo Buchanan VLDL CALC 19.0 mg/dL Normal [facility] Comment on above: Performed By: #### T SH, CMP, LIPID #### [facility] [address] [place] [address] Dr. Estuardo Buchanan PROF 14(COMP METB)on 023 Albumin [Mass/Vol] 4.2 g/dL Normal 3.4-5.0 [facility] Comment on above: Performed By: #### T SH, CMP, LIPID #### [facility] [address] [place] [address] Dr. Estuardo Buchanan Albumin/Globulin [Mass ratio] 1.2 {ratio} Normal [facility] Comment on above: Performed By: #### T SH, CMP, LIPID #### [facility] [address] [place] [address] Dr. Estuardo Buchanan ALP [Catalytic activity/Vol] 60 U/L Normal 46-116 [facility] Comment on above: Performed By: #### T SH, CMP, LIPID #### [facility] [address] [place] [address] Dr. Estuardo Buchanan ALT [Catalytic activity/Vol] 35 U/L Normal 14-59 [facility] Comment on above: Performed By: #### T SH, CMP, LIPID #### [facility] [address] [place] [address] Dr. Estuardo Buchanan Anion gap [Moles/Vol] 9.5 mmol/L Normal [facility] Comment on above: Performed By: #### T SH, CMP, LIPID #### [facility] [address] [place] [address] Dr. Estuardo Buchanan AST [Catalytic activity/Vol] 20 U/L Normal 15-37 [facility] Comment on above: Performed By: #### T SH, CMP, LIPID #### [facility] [address] [place] [address] Dr. Estuardo Buchanan Bilirubin [Mass/Vol] 0.4 mg/dL Normal 0.2-1.0 [facility] Comment on above: Performed By: #### T SH, CMP, LIPID #### [facility] [address] [place] [address] Dr. Estuardo Buchanan Calcium [Mass/Vol] 9.7 mg/dL Normal 8.5-10.1 [facility] Comment on above: Performed By: #### T SH, CMP, LIPID #### [facility] [address] [place] [address] Dr. Estuardo Buchanan Chloride [Moles/Vol] 105 mmol/L Normal 98-107 [facility] Comment on above: Performed By: #### T SH, CMP, LIPID #### [facility] [address] [place] [address] Dr. Estuardo Buchanan CO2 [Moles/Vol] 30.4 mmol/L Normal 21.0-32.0 [facility] Comment on above: Performed By: #### T SH, CMP, LIPID #### [facility] [address] [place] [address] Dr. Estuardo Buchanan Creatinine [Mass/Vol] 0.82 mg/dL Normal 0.55-1.02 [facility] Comment on above: Performed By: #### T SH, CMP, LIPID #### [facility] [address] [place] [address] Dr. Estuardo Buchanan EGFR-AF WALLISIAN >60 Normal >=60 [facility] Comment on above: Performed By: #### T SH, CMP, LIPID #### [facility] [address] [address] [address] Estuardo Buchanan EGFR-NON AF WALLISIAN >60 Normal >=60 [facility] Comment on above: Performed By: #### T SH, CMP, LIPID #### [facility] [address] [address] [address] Estuardo Buchanan Globulin (S) [Mass/Vol] 3.6 g/dL Normal [facility] Comment on above: Performed By: #### T SH, CMP, LIPID #### [facility] [address] [place] [address] Dr. Estuardo Buchanan Glucose [Mass/Vol] 91 mg/dL Normal 74-106 [facility] Comment on above: Performed By: #### T SH, CMP, LIPID #### [facility] [address] [place] [address] Dr. Estuardo Buchanan Potassium [Moles/Vol] 4.9 mmol/L Normal 3.5-5.1 [facility] Comment on above: Performed By: #### T SH, CMP, LIPID #### [facility] [address] [place] [address] Dr. Estuardo Buchanan Protein [Mass/Vol] 7.8 g/dL Normal 6.4-8.2 [facility] Comment on above: Performed By: #### T SH, CMP, LIPID #### [facility] [address] [place] [address] Dr. Estuardo Buchanan Sodium [Moles/Vol] 140 mmol/L Normal 136-145 [facility] Comment on above: Performed By: #### T SH, CMP, LIPID #### [facility] [address] [place] [address] Dr. Estuardo Buchanan Urea nitrogen [Mass/Vol] 16.0 mg/dL Normal 7.0-18.0 [facility] Comment on above: Performed By: #### T SH, CMP, LIPID #### [facility] [address] [place] [address] Dr. Estuardo Buchanan Urea nitrogen/Creatinine [Mass ratio] 19.5 mg/mg Normal [facility] Comment on above: Performed By: #### T SH, CMP, LIPID #### [facility] [address] [place] [address] Dr. Estuardo Buchanan TSHon 06-19-2022 TSH 1.108 uIU/mL Normal 0.358-3.740 [place] Comment on above: Performed By: #### T SH, CMP, LIPID #### [facility] [address] [place] [address] Dr. Estuardo Buchanan QUANTIFERON TB GOLD PLUSon 0 03-24-2022 QuantiFERON Criteria Comment Normal [facility] Comment on above: Result Comment: Eugene [...] test. Performed By: #### Q NTTB #### [facility] [address] [place] [address] Dr. Estuardo Buchanan QuantiFERON Incubation Incubation performed. Normal [facility] Comment on above: Performed By: #### Q NTTB #### [facility] [address] [place] [address] Dr. Estuardo Buchanan QuantiFERON Mitogen Value >10.00 Normal [facility] Comment on above: Performed By: #### Q NTTB #### [facility] [address] [place] [address] Dr. Estuardo Buchanan QuantiFERON Nil Value 0.02 IU/mL Normal [facility] Comment on above: Performed By: #### Q NTTB #### [facility] [address] [place] [address] Dr. Estuardo Buchanan QuantiFERON TB1 Ag Value 0.03 IU/mL Normal [facility] Comment on above: Performed By: #### Q NTTB #### [facility] [address] [place] [address] Dr. Estuardo Buchanan QuantiFERON TB2 Ag Value 0.03 IU/mL Normal [facility] Comment on above: Performed By: #### Q NTTB #### [facility] [address] [place] [address] Dr. Estuardo Buchanan QuantiFERON-TB Gold Plus Negative Normal Negative [facility] Comment on above: Result Comment: No r esponse to M tuberculosis antigens detected. Infection with M tuberculosis is unlikely, but high risk individuals should be considered for additional testing (ATS/IDSA/CDC Clinical Practice Guidelines, 2017). The reference range is an Antigen minus Nil result of <0.35 IU/mL. Chemiluminescence immunoassay methodology Performed By: #### Q NTTB #### [facility] [address] [place] [address] Dr. Estuardo Buchanan HEPATITIS B SURFACE ANTIBODY , QUANTon 03-23-2022 Hepatitis B Surf AB Quant 279.6 mIU/mL Normal Immunity>9.9 [facility] Comment on above: Result Comment: Stat us of Immunity Anti-HBs Level Inconsistent with Immunity 0.0 - 9.9 Consistent with Immunity >9.9 Performed By: #### C BC #### [facility] [address] [place] [address] Dr. Estuardo Buchanan MMR IMMUNITYon 03-23-2022 Mumps Abs, IgG 120.0 AU/mL Normal Immune >10.9 [facility] Comment on above: Result Comment: Nega tive <9.0 Equivocal 9.0 - 10.9 Positive >10.9 A positive result generally indicates past exposure to Mumps virus or previous vaccination. Performed By: #### C BC #### [facility] [address] [place] [address] Dr. Estuardo Buchanan Rubella Antibodies, IgG 1.53 index Normal Immune >0.99 [facility] Comment on above: Result Comment: Non- immune <0.90 Equivocal 0.90 - 0.99 Immune >0.99 Performed By: #### C BC #### [facility] [address] [place] [address] Dr. Estuardo Buchanan Rubeola Ab, IgG 128.0 AU/mL Normal Immune >16.4 [facility] Comment on above: Result Comment: Nega tive <13.5 Equivocal 13.5 - 16.4 Positive >16.4 Presence of antibodies to Rubeola is presumptive evidence of immunity except when acute infection is suspected. Performed By: #### C BC #### [facility] [address] [place], [place] [address] Dr. Estuardo Buchanan VARICELLA IGG ABon 3 Varicella Zoster IgG 723 index Normal Immune >165 [facility] Comment on above: Result Comment: Nega tive <135 Equivocal 135 - 165 Positive >165 A positive result generally indicates exposure to the pathogen or administration of specific immunoglobulins, but it is not indication of active infection or stage of disease. Performed By: #### C BC #### [facility] [address] [address] [address] Estuardo Buchanan Encounters Encounter Date Encounter Type Care Provider Facility Start: 07-23-2023 End: 07-23-2023 ambulatory KATIE IGLESIAS Not Available Start: 07-02-2023 End: 07-02-2023 ambulatory MERT HARRISON Not Available Start: 10-08-2022 End: 10-08-2022 ambulatory [facility] Start: 09-25-2022 End: 09-26-2022 ambulatory [facility] Start: 09-25-2022 End: 09-26-2022 Evaluation and management of inpatient [facility] Start: 09-12-2022 End: 09-13-2022 ambulatory [facility] Start: 09-12-2022 End: 09-12-2022 ambulatory [facility] Start: 09-06-2022 End: 09-07-2022 ambulatory [facility] Start: 07-11-2022 ambulatory NARENDRANATH LAKSHMIPATHY . Facility:[facility] Start: 07-09-2022 End: 07-09-2022 ambulatory NARENDRANATH LAKSHMIPATHY . Facility:[facility] Start: 07-04-2022 End: 07-05-[address] MERT HARRISON Facility:[facility] Start: 06-23-2022 Encounter for genera l adult medical examination without abnormal findings DR MERT HARRISON [facility] Start: 06-19-2022 End: 06-20-[address] MERT HARRISON Facility:[facility] Start: 06-19-2022 End: 06-20-2022 Encounter for general adult medical examination without abnormal findings DR MERT HARRISON Facility:[facility] Start: 04-18-2022 End: 04-19-2022 ambulatory MERVAT BROWN . Facility:[facility] Start: 04-16-[address] GUILLERMO ARCHIBALD . Faci lity:[facility] Start: 03-22-2022 End: 03-23-2022 ambulatory NUSRAT LIAO Facility:[facility] Payers Date Payer Category Payer Unknown [id number] 2.16.84 [id number] 1980 Unknown [id number] 2.16.84 [id number] 1978 Unknown [id number] 2.16.84 [id number] 1978 Unknown [id number] 2.16.84 [id number] 1978 Unknown [id number] 2.16.84 [id number] 1978 Unknown [id number] 2.16.84 [id number] 1978 Unknown [id number] 2.16.84 [id number] 1978 Unknown [id number] 2.16.84 [id number] 1959 Self-pay [id number] 1961 Unknown [id number] Unknown [id number] 2.16.84 [id number] Clinical Notes 04-18-2022 to 10-08-2022 Note Date [...] or sooner if new or worsening problems. [facility] 10-08-2022 Note Subjective: HPI: Mrs. [...] all other extremities. 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 Assessment: Mrs. Kim had an L4 laminotomy to treat a lumbar disc prolapse with compression radiculopathy that caused chronic leg and back pain. Plan: See physical therapist for leg exercises. Follow-up with neurosurgery clinic in 1 month. Kim Dhillon, MS3 [facility] 09-26-2022 Note Neurosurgery Progres s [...] discharge criteria. Will plan for home today. [facility] 09-26-2022 Note Occupational Therapy Occupational [...] DISCECTOMY Bilateral 09/25/2022 Bilateral L4-5 diskectomy, Dr. Carol ULNAR NERVE REPAIR Right right ulnar compression [...] Level of Function Prior Function Level of Prowers: Independent with ADLs and functional transfers, Independent [...] Eating meals?: None (Independent) Total Score OT [facility]: 24 Assessment/Plan OT Assessment OT Education/Comments: extensive discussion regarding general home safety with new BLT precautions with good verbal teach back Plan OT Plan: No skilled OT OT Discharge Recommendations: Home Equipment Recommended: (none) OT - Discharge Recommendations Placed: Yes OT Goals Multi-Disciplinary Problems (from Occupational Therapy) Active Problems Not on file [facility] 09-26-2022 Note Physical Therapy Physical Therapy Evaluation Patient Name: Renee Kim : 1980 Today's Date: 09/26/2022 Session time: [phone] Present hx: Reports chronic low back pain [...] Level of Function Prior Function Level of Prowers: Independent with ADLs and functional transfers, Independent [...] the LLE Pr (more content not included)... [facility] 09-26-2022 Note Progress note: The patient reports experiencing pain relief after spinal decompression procedure. The patient is alert and oriented. The patient has been able to ambulate post-op. Kim Dhillon, Medical Student [facility] 09-25-2022 Note Patient: Renee larsen Procedure Summary Date: 09/25/22 Room / Location: [facility] OPERATING ROOM 03 / [facility] Operating Room Anesthesia Start: 1049 [...] per anesthesia protocol. No notable events documented. [facility] 09-25-2022 Note Airway Date/Time: 09/25/2022 11:05 AM Urgency: elective Airway not difficult General Information and Staff Patient location during procedure: OR Anesthesiologist: Marco Abdi MD Resident/RURAL MAIL CONTRACTOR/CAA: LE Oh Performed: resident/RURAL MAIL CONTRACTOR/CAA Indications and Patient Condition Indications for airway [...] 1 Number of other approaches attempted: 0 [facility] 09-25-2022 Note Patient: Renee larsen Procedure Information Date/Time: 09/25/22 1030 Procedure: L4 laminotomies with L4-L5 discectomy - 1.5 hours, C arm, prone on open Ernst, downpushing curettes Location: [facility] OPERATING ROOM 03 / [facility] Operating Room Surgeons: Jenny Snell [...] Plan discussed with CAA. Additional Equipment Requests [facility] 09-13-[address] Snell case. Diagnosis: Lumbar disc prolapse with radiculopathy. Procedure: L4 laminotomies, L4-L5 discectomy. Time 1.5 hours. Prone on open Ernst. Need C arm and downpushing curettes. [facility] 09-12-2022 Note SUBJECTIVE: Chief complaint: [...] several years. Currently seeing pain management at [facility] and has had injections without lasting or [...] right C6, C8 (more content not included)... [facility] 04-18-2022 Note PAIN MANAGEMENT CONS [...] wished to proceed with the plan. [facility] Summary Purpose Family History No Family History Records FoundNo Family History Records FoundNo Family History Records Found Advance Directives No Advanced Directives Records FoundNo Advanced Directives Records FoundNo Advanced Directives Records Found Additional Source Comments INFORMATION SOURCE (unrecogn ized section and content) DATE CREATED AUTHOR 07/10/[address] [facility] DATE CREATED AUTHOR AUTHOR'S ORGANIZ ATION 10/12/2022 [facility] DATE CREATED AUTHOR AUTHOR'S ORGANIZ ATION 07/24/2023 [facility] EPIC FOR RECORDS PERTAINING TO PATIENTS [...] BE BASED ON THE PRIMARY CLINICAL RECORDS. [facility] [employer] [facility]. provides no warranty or guarantee of the accuracy or completeness of information in this document.
[2023-08-19 06:35] VITALS: BP 131/86; PULSE 90; TEMP 36.2; O2SAT 99; BMI 31.1
[2023-08-19] MEDS: LACTATED RINGER'S SOLUTION 1,000 ML 50 ML IV (07:03)
[2023-08-19 07:48] VITALS: BP 117/73; PULSE 78; TEMP 36.2; O2SAT 93
[2023-08-19 08:03] VITALS: BP 132/79; PULSE 77; O2SAT 93
[2023-08-19 08:18] VITALS: BP 130/89; PULSE 78; O2SAT 99
--- NOTE | 2023-08-19 10:17 | W.PM.PROCNOT ---
Date of procedure: 08/19/23 Pre-op diagnosis: screening colonoscopy Post-op diagnosis: same as pre-op Procedure: Previous colonoscopy: never procedure: screening colonoscopy The patient was given IV conscious sedation.? The patient's SPO2 remained above 90% throughout the procedure. The colonoscope was inserted per rectum and advanced under direct vision to the cecum without difficulty.? The prep was good.? Findings: Terminal ileum os: normal Cecum/Ascending colon: normal Transverse colon: normal Descending/Sigmoid colon: normal Rectum/Anus: examined in normal and retroflexed positions and was normal Withdrawal Time was (minutes): 8 The colon was decompressed and the scope was removed.? The patient tolerated the procedure well. Recommendations/Plan: 1.? Lifestyle and dietary modifications as discussed 2.? F/U in 10 years 3.? Discussed with the family Anesthesia: MAC Surgeon: Patrice Rachel Estimated blood loss (mL): 0 Pathology: none sent Condition: stable Disposition: PACU
== END 2023-08-19 08:19 | disposition home or self-care (01) ==
PROVIDERS: PCP Family Medicine; Visit Provider Surgery
PROC: (CPT 00812; principal; 2023-08-19 07:30)
DX: Z12.11 Encounter for screening for malignant neoplasm of colon (principal); F17.210 Nicotine dependence, cigarettes, uncomplicated; Z90.710 Acquired absence of both cervix and uterus; M19.90 Unspecified osteoarthritis, unspecified site
CPT/HCPCS: 00812; 45378; J2704

== ENCOUNTER 2023-12-23 15:55 | Emergency (ER) | payer BC, SELFPAY ==
[2023-12-23 15:56] VITALS: BP 132/91; PULSE 87; TEMP 37.1; O2SAT 100; BMI 32.6
--- NOTE | 2023-12-23 16:02 | CT_ITS ---
The [address] [address] Patient Name: RENEE REGALADO MRN: [id number] date: 1980 Sex: F Assigned Patient Location: Current Patient Location: Accession/Order Number: [id number] Exam Date: 12/23/2023 17:05 Report Date: 12/23/2023 19:18 At the request of: DAWIT RAMÍREZ Procedure: CT abdomen pelvis wo con EXAM: CT abdomen pelvis wo con HISTORY: Left flank pain. Hematuria. COMPARISON: 08/08/2020. TECHNIQUE: Unenhanced helical acquisition obtained through the abdomen and the pelvis. FINDINGS: The visualized lung bases and the pleural spaces are clear. Unremarkable gallbladder. No significant biliary ductal dilatation. Image degradation secondary to patient motion. Allowing for the lack of intravenous contrast, the liver, spleen, pancreas and the adrenal glands are unremarkable. No renal or ureteral calculi. Moderate atherosclerotic vascular calcifications. No enlarged lymph nodes within the abdomen or the pelvis. Prior hysterectomy. Diverticulosis without radiographic evidence of diverticulitis. The appendix is not identified. No secondary signs of appendicitis. No ascites or focal intraperitoneal fluid collections. Moderate-severe degenerative disc disease L4-L5. CT/CT abdomen pelvis wo con IMPRESSION: 1. No renal or ureteral calculi. 2. Diverticulosis without radiographic evidence of diverticulitis. Electronically authenticated by: NEIDA ZEE Date: 12/23/2023 19:18
--- NOTE | 2023-12-23 16:04 | ED.GENADUL1 ---
HPI HPI - General Adult General Chief complaint: Urogenital-Female Time Seen by Provider: 12/23/23 15:58 Source: patient Mode of arrival: walk-in Limitations: no limitations History of Present Illness HPI narrative: Patient is a 43-year-old female who presents to the emergency department for left flank pain that began this morning and worsened this afternoon. She does have a history of 1 previous kidney stone that she was able to pass with Flomax and pain medication. She states this feels similar. Pain is starting to radiate to the left abdomen. She has not had any fevers or vomiting. She states she does feel nauseous when the pain becomes more severe. She has had a previous appendectomy and hysterectomy. No medications prior to arrival. Related Data Home Medications ?Medication ?Instructions ?Recorded ?Confirmed amitriptyline 50 mg tablet 50 mg PO BEDTIME 08/11/23 12/23/23 citalopram 20 mg tablet (Celexa) 20 mg PO QDAY 08/11/23 12/23/23 naproxen sodium 220 mg tablet 440 mg PO DAILY 08/12/23 12/23/23 (Aleve) baclofen 20 mg tablet 20 mg PO TID PRN back pain 12/23/23 12/23/23 trazodone 50 mg tablet 50 mg PO BEDTIME 12/23/23 12/23/23 Allergies Allergy/AdvReac Type Severity Reaction Status Date / Time morphine AdvReac Severe Rash Verified 08/11/23 13:18 Opioid HPI Opioid Management Most Recent Opioid Data: Last Pain Scale 10 12/23/23 16:14 12/23/23 Last MAR Pain Assessment 12/23/23 16:14 Review of Systems ROS Constitutional Denies: fever or chills Ears, nose, mouth, and throat Denies: throat pain or nasal congestion Cardiovascular Denies: chest pain Respiratory Denies: shortness of breath Gastrointestinal Reports: abdominal pain and nausea; Denies: vomiting, diarrhea or constipation Genitourinary Denies: painful urination Musculoskeletal Reports: back pain; Denies: neck pain Neurological Denies: numbness in extremities or weakness in extremities [facility] Medical History (Updated 12/23/23 @ 19:31 by LINN Redd) Depression ?F32.A - Depression, unspecified (ICD-10) Delayed recovery from anesthesia Upper back pain ?M54.9 - Dorsalgia, unspecified (ICD-10) Low back pain ?M54.50 - Low back pain, unspecified (ICD-10) Numbness and tingling ?R20.0 - Anesthesia of skin (ICD-10) ?R20.2 - Paresthesia of skin (ICD-10) Obesity ?E66.9 - Obesity, unspecified (ICD-10) Kidney stone ?N20.0 - Calculus of kidney (ICD-10) Surgical History (Updated 08/12/23 @ 13:58 by Yakelin Quijano RN) History of bladder suspension procedure ?Z98.890 - Other specified postprocedural states (ICD-10) ?Z87.448 - Personal history of other diseases of urinary system (ICD-10) H/O cystoscopy ?Z98.890 - Other specified postprocedural states (ICD-10) H/O decompression of ulnar nerve ?Z98.890 - Other specified postprocedural states (ICD-10) H/O laparoscopy ?Z98.890 - Other specified postprocedural states (ICD-10) H/O: hysterectomy ?Z90.710 - Acquired absence of both cervix and uterus (ICD-10) Family History (Updated 08/12/23 @ 13:36 by Yakelin Quijano RN) Other A-fib Autoimmune disorder Family history of cancer Family history of diabetes mellitus Family history of hypertension Social History Within the past year, how often did you have a drink containing alcohol: 2-4 times a month Within the past year, how many standard drinks containing alcohol did you have on a typical day: 1 or 2 Within the past year, how often did you have six or more drinks on one occasion: never Total score: 0 Score interpretation: A score less than 3 is consistent with normal alcohol consumption. 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 Highest level of school completed/degree received: Associate degree: academic program Exam Narrative Exam Narrative: Gen.: Awake, alert, in no distress Head: Normocephalic, atraumatic ENT: Moist mucous membranes Respiratory: No respiratory distress, lungs clear bilaterally Cardio: Regular rate and rhythm Gastrointestinal: Abdomen is soft, nondistended and nontender to palpation Back: No CVA tenderness Extremities: Moves extremities equally Psych: Normal mood and affect Neuro: No focal neuro deficit Skin: Warm, dry, intact Constitutional Vital Signs, click to edit/add: Last Vital Signs Temp 98.7 F 12/23/23 15:56 Pulse 87 12/23/23 15:56 Resp 20 12/23/23 15:56 BP 132/91 12/23/23 15:56 Pulse Ox 100 12/23/23 15:56 O2 Del Method Room Air 12/23/23 15:56 Course Vital Signs Vital signs: Vital Signs Temperature 98.7 F 12/23/23 15:56 Pulse Rate 87 12/23/23 15:56 Respiratory Rate 20 12/23/23 15:56 Blood Pressure 132/91 12/23/23 15:56 Pulse Oximetry 100 12/23/23 15:56 Oxygen Delivery Method Room Air 12/23/23 15:56 Temperature 98.7 F 12/23/23 15:56 Pulse Rate 87 12/23/23 15:56 Respiratory Rate 20 12/23/23 15:56 Blood Pressure 132/91 12/23/23 15:56 Pulse Oximetry 100 12/23/23 15:56 Oxygen Delivery Method Room Air 12/23/23 15:56 Medical Decision Making MDM Narrative Medical decision making narrative: Patient was medicated with IV Dilaudid, Toradol, Zofran, fluids. Lab studies show WBC 16.3, the remainder of the labs and her urine specimen are negative. CT was pending, patient states she wanted to go home and she needed to take care of her elderly family member. She understands the risks of leaving the emergency department prior to completion of treatment. She can return to the emergency department at any time. No prescriptions were issued as the patient left the hospital AGAINST MEDICAL ADVICE. Of note, at the time of this charting, the patient CT has resulted and did not show any acute process. SUPERVISED APC VISIT, PHYSICIAN ATTESTATION: Based on the medical record the care appears appropriate. ? Medical Records Medical records reviewed: Yes I reviewed the patient's medical records Lab Data Lab results reviewed: Yes I reviewed the patient's lab results Labs: Lab Results 12/23/23 12/23/23 12/23/23 Range/Units 15:58 16:02 16:22 WBC 16.3 H (4.0-11.0) 10^3/uL RBC 4.64 (4.20-5.40) 10^6/uL Hgb 15.0 (12.0-16.0) g/dL Hct 45.2 (36.0-48.0) % MCV 97.4 (81.0-99.0) fL MCH 32.3 (26.7-34.0) pg MCHC 33.2 (29.9-35.2) g/dL RDW 13.2 (11.0-15.0) % Plt Count 331 (150-450) 10^3/uL MPV 10.1 (9.5-13.5) fL Neut % (Auto) 73.8 (43.0-75.0) % Lymph % (Auto) 21.4 (20.5-60.0) % Luna % (Auto) 3.1 (1.7-12.0) % Eos % (Auto) 1.0 (0.9-7.0) % Baso % (Auto) 0.5 (0.2-2.0) % Neut # (Auto) 12.0 H (1.4-6.5) 10^3/uL Lymph # (Auto) 3.5 (1.2-3.8) 10^3/uL Luna # (Auto) 0.5 (0.3-0.8) 10^3/uL Eos # (Auto) 0.2 (0.0-0.7) 10^3/uL Baso # (Auto) 0.1 (0.0-0.1) 10^3/uL Abs Immat Gran (auto) 0.04 H (0.00-0.03) 10^3/uL Imm/Tot Granulo (auto) 0.2 (0.0-0.5) % PT 10.3 (9.0-11.6) sec INR 0.97 Sodium 140 (136-145) mmol/L Potassium 3.6 (3.5-5.1) mmol/L Chloride 101 (98-107) mmol/L Carbon Dioxide 29.3 (21.0-32.0) mmol/L Anion Gap 13.3 BUN 19.0 H (7.0-18.0) mg/dL Creatinine 0.87 (0.55-1.02) mg/dL Est GFR ( Amer) >60 (>=60 mL/min/1.73m^2) Est GFR (Non-Af Amer) >60 (>=60 mL/min/1.73m^2) BUN/Creatinine Ratio 21.8 Glucose 95 (74-106) mg/dL Lactate 0.7 (0.4-2.0) mmol/L Calcium 9.5 (8.5-10.1) mg/dL Total Bilirubin 0.4 (0.2-1.0) mg/dL AST 20 (15-37) U/L ALT 29 (14-59) U/L Alkaline Phosphatase 73 (46-116) U/L Total Protein 7.5 (6.4-8.2) g/dL Albumin 3.9 (3.4-5.0) g/dL Globulin 3.6 g/dL Albumin/Globulin Ratio 1.1 Urine Color Lt. yellow (YELLOW) Urine Clarity Clear (CLEAR) Urine pH 6.5 (5.0-9.0) Ur Specific [place] <=1.005 A (1.005-1.025) Urine Protein Negative (NEG/TRACE) mg/dL Urine Glucose (UA) Negative (NEGATIVE) mg/dL Urine Ketones Negative (NEGATIVE) mg/dL Urine Occult Blood Negative (NEGATIVE) Urine Nitrite Negative (NEGATIVE) Urine Bilirubin Negative (NEGATIVE) Urine Urobilinogen 0.2 (0.2-1.0) EU/dL Ur Leukocyte Esterase Negative (NEGATIVE) Discharge Plan Discharge Stand Alone Forms: Portal Instructions Chief Complaint: Urogenital-Female Clinical Impression: Left flank pain Patient Disposition: Left Against Medical Advice Time of Disposition Decision: 19:31 Condition: Good Mode of Transportation: Private Vehicle Prescriptions / Home Meds: No Action amitriptyline 50 mg tablet 50 mg PO BEDTIME citalopram [Celexa] 20 mg tablet 20 mg PO QDAY naproxen sodium [Aleve] 220 mg tablet 440 mg PO DAILY baclofen 20 mg tablet 20 mg PO TID PRN (Reason: back pain) trazodone 50 mg tablet 50 mg PO BEDTIME Print Language: Luxembourgish Referrals: Dante Panda MD [Primary Care Provider] - 1 week Discharge Date/Time: 12/23/23 19:12
[2023-12-23 16:12] LABS: Basophils Absolute Auto 0.1 10^3/uL (0.0-0.1); Basophils Percent Auto 0.5 % (0.2-2.0); Eosinophils Absolute Auto 0.2 10^3/uL (0.0-0.7); Hematocrit 45.2 % (36.0-48.0); Immature Granulocytes Abs Auto 0.04 10^3/uL (0.00-0.03); Immature Granulocytes Pct Auto 0.2 % (0.0-0.5); Lymphocytes Absolute Auto 3.5 10^3/uL (1.2-3.8); Lymphocytes Percent Auto 21.4 % (20.5-60.0); Mean Corpuscular HGB Conc 33.2 g/dL (29.9-35.2); Mean Corpuscular Hemoglobin 32.3 pg (26.7-34.0); Mean Corpuscular Volume 97.4 fL (81.0-99.0); Mean Platelet Volume 10.1 fL (9.5-13.5); Monocytes Absolute Auto 0.5 10^3/uL (0.3-0.8); Monocytes Percent Auto 3.1 % (1.7-12.0); Neutrophils Percent Auto 73.8 % (43.0-75.0); Platelet Count 331 10^3/uL (150-450); Red Blood Count 4.64 10^6/uL (4.20-5.40); Red Cell Distribution Width 13.2 % (11.0-15.0); White Blood Count 16.3 10^3/uL (4.0-11.0)
[2023-12-23 16:14] LABS: Bilirubin Urine NEGATIVE (NEGATIVE); Blood Urine NEGATIVE (NEGATIVE); Clarity Urine CLEAR (CLEAR); Color Urine LT. YELLOW (YELLOW); Glucose Urine UA NEGATIVE (NEGATIVE); Ketones Urine NEGATIVE (NEGATIVE); Leukocyte Esterase Urine NEGATIVE (NEGATIVE); Nitrite Urine NEGATIVE (NEGATIVE); Protein Urine NEGATIVE (NEG/TRACE); Specific Gravity Urine <=1.005 (1.005-1.025); Urine Microscopic Indicated NO; Urobilinogen Urine 0.2 EU/dL (0.2-1.0); pH Urine 6.5 (5.0-9.0)
[2023-12-23] MEDS: ONDANSETRON PF 4 MG/2 ML VIAL IV (16:14)
[2023-12-23] MEDS: KETOROLAC TROMETHAMINE 30 MG/ML VIAL IVP (16:14)
[2023-12-23] MEDS: HYDROMORPHONE HCL 1 MG/ML CARTRIDGE IVP (16:14)
[2023-12-23] MEDS: 0.9 % SODIUM CHLORIDE 1,000 ML 999 ML IV (16:15)
[2023-12-23 16:25] LABS: Alanine Aminotransferase 29 U/L (14-59); Albumin Globulin Ratio 1.1; Albumin Level 3.9 g/dL (3.4-5.0); Alkaline Phosphatase 73 U/L (46-116); Anion Gap 13.3; Aspartate Amino Transferase 20 U/L (15-37); BUN Creatinine Ratio 21.8; Bilirubin Total 0.4 mg/dL (0.2-1.0); Calcium 9.5 mg/dL (8.5-10.1); Carbon Dioxide 29.3 mmol/L (21.0-32.0); Chloride 101 mmol/L (98-107); Estimated GFR (African America >60 (>=60 mL/min/1.73m^2); Estimated GFR (Non-African Ame >60 (>=60 mL/min/1.73m^2); Globulin 3.6 g/dL; Glucose 95 mg/dL (74-106); Potassium 3.6 mmol/L (3.5-5.1); Sodium 140 mmol/L (136-145); Total Protein 7.5 g/dL (6.4-8.2)
[2023-12-23 16:28] LABS: Lactate/Lactic Acid 0.7 mmol/L (0.4-2.0)
--- OUTSIDE RECORDS SUMMARY | 2023-12-23 16:29 | XMS_ITS | CCD ---
Author Organization [facility] Care Team Providers Care Education Dean Name Role Phone NUSRAT LIAO Admitting Unavailable NUSRAT LIAO Attending Unavailable NUSRAT LIAO Consulting Unavailable JERRELL, DR CUEVAS Primary Care Unavailable LAKSHMIPATHY ., MERVAT Attending Katie vailable JERRELL, DR CUEVAS Primary Care Unavailable LAKSHMIPATHY ., NARKIMBERLEY Consulting Katie vailable LAKSHMIPATHY ., MERVAT Admitting Katie vailable LAKSHMIPATHY ., MERVAT Attending Katie vailable HUNTER, DR DANTE Villaseñor Primary Care Unavailable LAKSHMIPATHY ., MERVAT Consulting Katie vailable LAKSHMIPATHY ., MERVAT Admitting Katie vailable ARCHIBALD ., DR GUILLERMO Kong Admitting Unavailable HEMMER, DR SU Etienne Referring Unavailable ARCHIBALD ., DR GUILLERMO Kong Attending Unavailable JERRELL, DR CUEVAS Primary Care Unavailable LAKSHMIPATHY ., MERVAT Admitting Katie vailable NADERENestor, DR DANTE Villaseñor Primary Care Unavailable LAKSHMIPATHY ., MERVAT Attending Katie vailable LAKSHMIPATHY ., NARKIMBERLEY Consulting Katie vailable HUNTER, DR DANTE Villaseñor Attending Unavailable HUNTER, DR DANTE Villaseñor Consulting Unavailable HUNTER, DR DANTE Villaseñor Primary Care Unavailable HUNTER, DR DANTE Villaseñor Admitting Unavailable HUNTER, DR DANTE Villaseñor Consulting Unavailable HUNTER, DR DANTE Villaseñor Primary Care Unavailable HUNTER, DR DANTE Villaseñor Admitting Unavailable HUNTER, DR DANTE Villaseñor Attending Unavailable OVITT, SALOME Referring Unavailable OVITT, SALOME Referring Unavailable CAROL, JENNY Attending Unavailable CAROL, JENNY Admitting Unavailable OVITT, SALOME Attending Unavailable OVITT, SALOME Attending Unavailable CAROL, JENNY Referring Unavailable Naderer , Dante Primary Care Provider DANTE HARRISON Attending Unavailable KATIE IGLESIAS Attending Unavailable DANTE HARRISON Attending Unavailable Allergies Allergy Classification Reported Allergen(s) Allergy Type Date of Onset Reaction(s) Facility (2 sources) Morphine; Translations: [MORPHINE] Drug Allergy 6 [facility] Repository (1 source) ALLERGIES NOT ON FILE; Translations: [ALLERGIES NOT ON FILE] Propensity to adverse reactions (disorder) [facility] Repository (3 sources) Morphine Drug Allergy 1 [facility] [employer] Work Phone: Medications Current Medications Medication Drug Class(es) Dates Sig (Normalized) Sig (Original) baclofen 20 mg oral tablet (3 sources) gamma-Aminobut yric Acid-ergic Agonist Start: 09-29-2023 take 1 tablet by mouth three times daily as needed baclofen (Lioresal) 20 MG tablet Indications: Other intervertebral disc degeneration, lumbar region , Degeneration of lumbar or lumbosacral intervertebral disc TAKE 1 TABLET BY MOUTH THREE TIMES A DAY NEEDED 60 tablet 2 09/29/2023 Active citalopram 20 mg oral tablet (3 sources) Serotonin Reuptake Inhibitor Start: 06-30-2023 take 1 tablet by mouth once daily citalopram (CeleXA) 20 MG tablet Indications: MDD (major depressive disorder), recurrent episode, mild (HCC) (CMS/HCC) Take 1 tablet (20 mg) by mouth Daily 90 tablet 3 06/30/2023 Active 24 hr dexmethylphenidate hydrochloride 20 mg extended release oral capsule (2 sources) Central Nervous System Stimulant Start: 12-10-2023 End: 01-09-2024 take 1 capsule by mouth once daily dexmethylphenidate XR (Focalin XR) 20 MG 24 hr capsule Indications: ADD (attention deficit disorder) without hyperactivity Take 1 capsule (20 mg) by mouth Daily Do not crush, chew, or split. 30 capsule 12/10/2023 01/09/2024 Active traZODone hydrochloride 50 mg oral tablet (2 sources) Serotonin Reuptake Inhibitor Start: 12-10-2023 take 1 tablet by mouth at bedtime traZODone (Desyrel) 50 MG tablet Indications: Primary insomnia Take 1 tablet (50 mg) by mouth at bedtime 30 tablet 3 12/10/2023 Active Completed/Discontinued Medications Medication Drug Class(es) Dates Sig (Normalized) Sig (Original) amitriptyline hydrochloride 50 mg oral tablet (3 sources) Tricyclic Antidepressant Start: 03-07-2023 End: 12-10-2023 take 1 tablet by mouth at bedtime amitriptyline (Elavil) 50 MG tablet Take 50 mg by mouth at bedtime 03/07/2023 12/10/2023 Discontinued 24 hr amphetamine aspartate 5 mg / amphetamine sulfate 5 mg / dextroamphetamine saccharate 5 mg / dextroamphetamine sulfate 5 mg extended release oral capsule (3 sources) Central Nervous System Stimulant Start: 11-21-2023 End: 12-21-2023 take 1 capsule by mouth every twenty-four hours in the morning amphetamine-dextr oamphetamine XR (Adderall XR) 20 MG 24 hr capsule Indications: ADD (attention deficit disorder) without hyperactivity Take 1 capsule (20 mg) by mouth in the morning. Do not crush or chew.. 30 capsule 11/21/2023 12/10/2023 Discontinued tiZANidine 4 mg oral tablet (3 sources) Central alpha-2 Adrenergic Agonist Start: 07-02-2023 End: 12-10-2023 take 1 tablet by mouth three times daily as needed for muscle spasms tiZANidine (Zanaflex) 4 MG tablet Indications: DDD (degenerative disc disease), lumbar Take 1 tablet (4 mg) by mouth 3 (three) times a day as needed for muscle spasms 60 tablet 3 07/02/2023 12/10/2023 Discontinued Problems Active Problems Problem Classification Problem Date Documented Date Episodic/Chronic Disorders usually diagnosed in infancy, childhood, or adolescence (5 sources) Attention deficit hyperactivity disorder, predominantly inattentive type; Translations: [Other specified behavioral and emotional disorders with onset usually occurring in childhood and adolescence] Onset: 08-18-2023 08-18-2023 Chronic Miscellaneous mental health disorders (4 sources) Primary insomnia; Translations: [Primary insomnia] Onset: 12-10-2023 12-10-2023 Chronic Mood disorders (5 sources) Recurrent major depressive episodes, mild ; Translations: [Major depressive disorder, recurrent, mild] Onset: 06-30-2023 06-30-2023 Chronic Osteoarthritis (4 sources) Primary coxarthrosis, bilateral; Translations: [Bilateral primary osteoarthritis of hip] Onset: 12-10-2023 12-10-2023 Chronic Other nervous system disorders (2 sources) Other acute postprocedural pain; Translations: [Other acute postprocedural pain] Onset: 09-25-2022 Episodic Other non-traumatic joint disorders (4 sources) Pain in unspecified joint; Translations: [PAIN IN UNSPECIFIED JOINT] Onset: 07-04-2022 Episodic Other upper respiratory disease (3 sources) Allergic rhinitis due to pollen; Translations: [Allergic rhinitis due to pollen] Onset: 07-02-2023 07-02-2023 Chronic Residual codes; unclassified (2 sources) Pain, unspecified; Translations: [Pain, unspecified] Onset: 09-25-2022 Episodic Spondylosis; intervertebral disc disorders; other back problems (6 sources) Spondylosis without myelopathy or radiculopathy, lumbosacral [...] [ENCOUNTER FOR PRE-EMPLOYMENT EXAM] Onset: 03-22-2022 Episodic Diabetes mellitus without complication (3 sources) Prediabetes; Translations: [Prediabetes] Onset: 07-02-2023 07-02-2023 Episodic Other connective tissue disease (3 sources) Fibromyalgia; Translations: [Fibromyalgia] Onset: 07-02-2023 07-02-2023 Episodic Other non-traumatic joint disorders (3 sources) Multiple joint pain; Translations: [Pain in unspecified joint] Onset: 07-02-2023 07-02-2023 Episodic Unclassified (1 source) LOW BACK PAIN, UNSPECIFIED; Translations: [LOW BACK PAIN, UNSPECIFIED] Onset: 04-18-2022 Results Test Name Value Interpretation Reference Range Facility Office Visiton 10-08-2022 Follow-up visit [id number] Laney Kim 1980 F Date Provider Department Center 10/08/2022 SALOME GÓMEZ [facility] SURG [place] Fl Family History Problem Relation Age of Onset Hypertension Mother Hyperlipidemia Mother Colon polyps Mother Comments: Hx of colon polyps Hypertension Father Hyperlipidemia Father Lung cancer Maternal Grandfather Diabetes Maternal Grandfather Thyroid disease Other Comments: siblings Fibromyalgia Other Comments: siblings Family Status - Relation Status Age at Mother Father Maternal Grandfather Other Level of Service:24540 [place] POSTOP FOLLOW UP VISIT RELATED TO ORIGINAL PX Reason for Visit and Comments: Post-op [483] - Patient is here for a post op s/p 09/25/22 L4 laminotomies with L4-L5 discectomy. Patient had pain on last Friday. On Friday she stopped the medication zonisamide and the pain was gone by Friday. She was able to get out of bed w/o being in no pain. [facility] 30on 09-26-2022 30 The patient is Moderately Stable - Low risk of patient condition declining or worsening The patient's goals for the shift include rest The clinical goals for the shift include vss Normal [facility] DSon 09-26-2022 DS Admission Admitted 09/25/2022 [...] Medications These medications were sent to [facility] - [place], [place] - [address], [facility] [address] oxyCODONE-acetaminop hen 5-325 mg tablet Activity Normal activity as tolerated No driving until seen in clinic for follow-up. No strenuous activity Showering instructions: It is OK to shower as normal on the day after surgery. Do not submerge the wounds in water such as in bathtubs, hot tubs, or swimming pools. 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 Diet Continue [...] is performed under the ED CLIA certificate #[id number]. TYPE AND SCREEN ABO Grouping O Rh Type POS Ab Scrn NEG Nutrition Screen Issues Requiring Follow-Up None. Outpatient Follow-Up Future Appointments Date Time Provider Department Center 10/08/2022 2:00 PM Salome Farmer NP [facility] SURG Second Fl Test Results Pending At Discharge [facility] HPon 09-25-2022 HP H&P reviewed. The patient was examined and there are no changes to the H&P. [facility] HP H&P reviewed. The patient was examined and there are no changes to the H&P. [facility] NURSNOTEon 09-25-2022 NURSNOTE Patient complaining of numbness in her left leg from the knee down. Dr. Snell notified, no orders received at this time. [facility] OPNOTEon 09-25-2022 OPNOTE L4 laminotomies with L4-L5 discectomy Operative Note Date: 09/25/2022 Location: [facility] OR Name: Laney Kim, : 1980, Diagnosis Pre-op Diagnosis * Lumbar disc prolapse with compression radiculopathy [M51.16] Post-op Diagnosis * Lumbar disc prolapse with compression radiculopathy [M51.16] Procedures L4 laminotomies with L4-L5 discectomy [address]5915 - [place] LAMINECTOMY W/O FFD 1/2 VERT SEG LUMBAR Bilateral L4 laminotomies for bilateral L4-5 discectomy and foraminotomies. Surgeons * Jenny Snell - Primary Procedure Summary Anesthesia: General ASA: II Estimated Blood Loss: 37 mL Drains: * None in log * Staff: Build Technician: Murray Xavier RN Relief Build Technician: Juliana Cho RN Relief Scrub: Lisy Parikh, MIRTA Scrub Person: Yudi White CST Automobile Service Advisor: Brandon Vidal CSA Indications: Laney Kim is an 42 y.o. female who [...] to the left laminotomy defect. Here a [place] 4 explore was passed lateral to the [...] mobilization and removal of the disc material Smock explorer could be passed ventral to the thecal sac without evidence of substantial stenosis, although a portion of disc material with some stenosis could be palpated on the contralateral side of the spinal canal. A #3 [place] (more content not included)... Normal [facility] OPNOTE Date: 09/25/2022 Location: [facility] OR Name: Laney Kim, : 1980, Diagnosis Pre-op Diagnosis * Lumbar disc prolapse with compression radiculopathy [M51.16] Post-op Diagnosis * Lumbar disc prolapse with compression radiculopathy [M51.16] Procedures L4 laminotomies with L4-L5 discectomy 10960 - [place] LAMINECTOMY W/O FFD 1/2 VERT SEG LUMBAR Bilateral L4 laminotomy, diskectomy, and foraminotomy. Surgeons * Jenny Snell - Primary Procedure Summary Anesthesia: General ASA: II Estimated Blood Loss: Minimal Drains: * None in log * Staff: Build Technician: Murray Xavier RN Relief Build Technician: Juliana Cho RN Relief Scrub: Lisy Parikh, PHYSICAL SCIENCES INSTRUCTOR Scrub Person: Yudi White, MIRTA Automobile Service Advisor: Brandon Vidal CSA Indications: Laney Kim is an 42 y.o. female who [...] I performed the procedure. Jenny Snell Normal [facility] POCT GLUCOSE METER UNSOLICIT ED RESULTSon 09-25-2022 Glucose [Mass/Vol] 117 mg/dL High 70-105 [facility] Comment on above: Order Comment: Waive d Testing in the ED is performed under the ED CLIA certificate #[id number]. Result Comment: acle ment Performed By: #### L [id number] ####[facility] HOSPITAL LAB (BEAKER)[address] [place] [address] TYPE AND SCREENon 09-25-2022 AB SCREEN Negative Normal [facility] Comment on above: Performed By: #### L [id number] #### [facility] BLOOD BANK , ABO group Nom (Bld) O Normal [facility] Comment on above: Performed By: #### L [id number] #### [facility] BLOOD BANK , RH TYPE IN BLOOD Positive [facility] Comment on above: Performed By: #### L [id number] #### [facility] BLOOD BANK , Orders Onlyon 09-23-2022 Orders Only [id number] Laney Kim 1980 F Date Provider Department Center 09/23/2022 Alfonso-MIRNA ARDON [facility] PAT [facility] Medical C Family History Problem Relation Age of Onset Hypertension Mother Hyperlipidemia Mother Colon polyps Mother Comments: Hx of colon polyps Hypertension Father Hyperlipidemia Father Lung cancer Maternal Grandfather Diabetes Maternal Grandfather Thyroid disease Other Comments: siblings Fibromyalgia Other Comments: siblings Family Status - Relation Status Age at Mother Father Maternal Grandfather Other Normal [facility] 36on 09-20-2022 36 Precert submitted for surgery but pending. Has [place] and precert normally takes 10-14 days, per Sue Chase. There is no way to expedite. I offered to call insurance [employer] but Sue did not think that would be productive. Please follow up and see what happens. Patient was in ED recently and having progressive symptoms. May need to be seen by Dr. Snell in clinic if progressive symptoms. Please discuss with Dr. Snell if questions. Normal [facility] 36 Spoke with patient. Advised that [...] send prescription. Will fax lab orders to [facility], states will have drawn today after work. No perfume, deodorant, lotion, jewelry, makeup, nail burkinan. No contact lenses. Bring photo ID and insurance cards but do not bring anything valuable. 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 Verbalizes understanding. Reinforced clinic phone number to call back if questions. Normal [facility] Letter (Out)on 09-20-2022 Letter (Out) [id number] Laney Kim 1980 Provider Department Center 09/20/2022 None-None [facility] Family History Problem Relation Age of Onset Hypertension Mother Hyperlipidemia Mother Colon polyps Mother Comments: Hx of colon polyps Hypertension Father Hyperlipidemia Father Lung cancer Maternal Grandfather Diabetes Maternal Grandfather Thyroid disease Other Comments: siblings Fibromyalgia Other Comments: siblings Family Status - Relation Status Age at Mother Father Maternal Grandfather Other [facility] Telephoneon 09-20-2022 Telephone [id number] Laney Kim 1980 Provider Department [place] 09/20/2022 SALOME GÓMEZ [facility] SURG Second Fl Family History Problem Relation Age of Onset Hypertension Mother Hyperlipidemia Mother Colon polyps Mother Comments: Hx of colon polyps Hypertension Father Hyperlipidemia Father Lung cancer Maternal Grandfather Diabetes Maternal Grandfather Thyroid disease Other Comments: siblings Fibromyalgia Other Comments: siblings Family Status - Relation Status Age at Mother Father Maternal Grandfather Other [facility] 36on 09-19-[address] Gonzales in [place] ED. States she discussed with patient, will discharge on prednisone taper and valium. No signs/sx of cauda equina, rectal tone normal. Advised Dr. Gonzales that I had talked to Dr. Snell, there is no indication for transfer, I am trying to arrange surgery for next week and will notify her once done. [facility] 36 Paulina from [facility] called back asking to speak with you again on this patient. [facility] [address] Gonzales in [place] ED. Patient having increased back and LLE pain despite baclofen, celebrex, tylenol, oxycodone 10mg. Unable to stand due to pain. Patient requesting to be transferred to [facility] for surgery. Discussed with Dr. Gonzales not [...] Suggested Decadron to see if this helps. Normal [facility] Prep for Procedureon 023 Prep for Procedure [id number] JulioLaney 1980 Provider Department Center 09/19/2022 148MATILDA, [facility] SURG Second Fl Family History Problem Relation Age of Onset Hypertension Mother Hyperlipidemia Mother Colon polyps Mother Comments: Hx of colon polyps Hypertension Father Hyperlipidemia Father Lung cancer Maternal Grandfather Diabetes Maternal Grandfather Thyroid disease Other Comments: siblings Fibromyalgia Other Comments: siblings Family Status - Relation Status Age at Mother Father Maternal Grandfather Other Normal [facility] Telephoneon 09-19-2022 Telephone [id number] JulioLaney 1980 Provider Department [place] 09/19/2022 148MATILDA [facility] SURG [place] Fl Family History Problem Relation Age of Onset Hypertension Mother Hyperlipidemia Mother Colon polyps Mother Comments: Hx of colon polyps Hypertension Father Hyperlipidemia Father Lung cancer Maternal Grandfather Diabetes Maternal Grandfather Thyroid disease Other Comments: siblings Fibromyalgia Other Comments: siblings Family Status - Relation Status Age at Mother Father Maternal Grandfather Other Normal [facility] 3609-16-2022 36 Discussed with patient that I had [...] out later this week to schedule. Normal [facility] 09-13-2022 36 Left voicemail for patient to call back on Friday to discuss recent clinic visit. Normal [facility] Telephoneon 09-13-2022 Telephone [id number] JulioLaney 1980 Date Provider Department Center 09/13/2022 148-OVARLEN [facility] SURG Second Fl Family History Problem Relation Age of Onset Hypertension Mother Hyperlipidemia Mother Colon polyps Mother Comments: Hx of colon polyps Hypertension Father Hyperlipidemia Father Lung cancer Maternal Grandfather Diabetes Maternal Grandfather Thyroid disease Other Comments: siblings Fibromyalgia Other Comments: siblings Family Status - Relation Status Age at Mother Father Maternal Grandfather Other Normal [facility] HPon 09-12-2022 HP SUBJECTIVE: Chief complaint: Chronic [...] several years. Currently seeing pain management at [facility] and has had injections without lasting [...] C6, C8 (more content not included)... Normal [facility] Office Visiton 09-12-2022 Follow-up visit [id number] Laney Kim 1980 F Date Provider Department Center 09/12/2022 SALOME GÓMEZ [facility] SURG Second Fl Family History Problem Relation Age of Onset Hypertension Mother Hyperlipidemia Mother Colon polyps Mother Comments: Hx of colon polyps Hypertension Father Hyperlipidemia Father Lung cancer Maternal Grandfather Diabetes Maternal Grandfather Thyroid disease Other Comments: siblings Fibromyalgia Other Comments: siblings Family Status - Relation Status Age at Mother Father Maternal Grandfather Other Level of Service:46713 [place] OFFICE/OUTPATIENT NEW MODERATE MDM 45-59 MINUTES Reason for Visit and Comments: New Patient [632] - Patient is here for a lumbar degenerative disc disease Normal [facility] MARIBEL by IFAon 07-08-2022 Antinuclear Antibodies, IFA Negative Normal [facility] Comment on above: Result Comment: Nega tive <1:80 Borderline 1:80 Positive >1:80 ICAP nomenclature: AC-0 For more information about Hep-2 cell patterns use ANApatterns.org, the official website for the International Consensus on Antinuclear Antibody (MARIBEL) Patterns (ICAP). Performed By: #### A NAIFA #### [facility] Laboratory [address] [address] [address] Estuardo Buchanan RHEUMATOID FACTORon 07-07-19 23 RA Latex Turbid. <10.0 Normal <14.0 [facility] Comment on above: Performed By: #### R F #### [facility] [address] [address] [address] Estuardo Buchanan CBC AUTO DIFFon 07-04-2022 BASO # 0.1 103/ul Normal 0.0-0.1 [facility] Comment on above: Performed By: #### C BC #### [facility] [address] [place] [address] Dr. Estuardo Buchanan Basophils/100 WBC (Bld) 0.5 % Normal 0.2-2.0 [facility] Comment on above: Performed By: #### C BC #### [facility] [address] [address] [address] Estuardo Buchanan EO # 0.1 103/ul Normal 0.0-0.7 [facility] Comment on above: Performed By: #### C BC #### [facility] [address] [place] [address] Dr. Estuardo Buchanan Eosinophils/100 WBC (Bld) 0.9 % Normal 0.9-7.0 [facility] Comment on above: Performed By: #### C BC #### [facility] [address] [place] [address] Dr. Estuardo Buchanan Erythrocyte distribution width (RBC) [Ratio] 14.2 % Normal 11.0-15.0 [facility] Comment on above: Performed By: #### C BC #### [facility] [address] [place] [address] Dr. Estuardo Buchanan Hematocrit (Bld) [Volume fraction] 43.2 % Normal 36.0-48.0 [facility] Comment on above: Performed By: #### C BC #### [facility] [address] [place] [address] Dr. Estuardo Buchanan Hemoglobin (Bld) [Mass/Vol] 14.0 g/dL Normal 12.0-16.0 [facility] Comment on above: Performed By: #### C BC #### [facility] [address] [place] [address] Dr. Estuardo Buchanan IG # 0.07 10e3/ul Critically high 0.00-0.03 [facility] Comment on above: Performed By: #### C BC #### [facility] [address] [place] [address] Dr. Estuardo Buchanan IG % 0.5 % Normal 0.0-0.5 [facility] Comment on above: Performed By: #### C BC #### [facility] [address] [place] [address] Dr. Estuardo Buchanan LYMPH # 3.0 103/ul Normal 1.2-3.8 [facility] Comment on above: Performed By: #### C BC #### [facility] [address] [place] [address] Dr. Estuardo Buchanan Lymphocytes/100 WBC (Bld) 20.4 % Critically low 20.5-60.0 [facility] Comment on above: Performed By: #### C BC #### [facility] [address] [place] [address] Dr. Estuardo Buchanan MANUAL DIFF REQ NO Normal [facility] Comment on above: Performed By: #### C BC #### [facility] [address] [place] [address] Dr. Estuardo Buchanan MCH (RBC) [Entitic mass] 31.7 pg Normal 26.7-34.0 [facility] Comment on above: Performed By: #### C BC #### [facility] [address] [place] [address] Dr. Estuardo Buchanan MCHC (RBC) [Mass/Vol] 32.4 g/dL Normal 29.9-35.2 [facility] Comment on above: Performed By: #### C BC #### [facility] [address] [place] [address] Dr. Estuardo Buchanan MCV (RBC) [Entitic vol] 97.7 fL Normal 81.0-99.0 [facility] Comment on above: Performed By: #### C BC #### [facility] [address] [place] [address] Dr. Estuardo Buchanan MONO # 0.4 103/ul Normal 0.3-0.8 [facility] Comment on above: Performed By: #### C BC #### [facility] [address] [place] [address] Dr. Estuardo Buchanan Monocytes/100 WBC (Bld) 2.8 % Normal 1.7-12.0 [facility] Comment on above: Performed By: #### C BC #### [facility] [address] [place] [address] Dr. Estuardo Buchanan NEUT # 11.0 103/ul Critically high 1.4-6.5 [facility] Comment on above: Performed By: #### C BC #### [facility] [address] [place] [address] Dr. Estuardo Buchanan Neutrophils/100 WBC (Bld) 74.9 % Normal 43.0-75.0 [facility] Comment on above: Performed By: #### C BC #### [facility] [address] [place] [address] Dr. Estuardo Buchanan Platelet mean volume (Bld) [Entitic vol] 10.4 fL Normal 9.5-13.5 [facility] Comment on above: Performed By: #### C BC #### [facility] [address] [place] [address] Dr. Estuardo Buchanan PLT 285 103/ul Normal 150-450 [facility] Comment on above: Performed By: #### C BC #### [facility] [address] [place] [address] Dr. Estuardo Buchanan RBC 4.42 106/ul Normal 4.20-5.40 [facility] Comment on above: Performed By: #### C BC #### [facility] [address] [place] [address] Dr. Estuardo Buchanan WBC 14.7 103/ul Critically high 4.0-11.0 [facility] Comment on above: Performed By: #### C BC #### [facility] [address] [place] [address] Dr. Estuardo Buchanan CRPon 07-04-2022 CRP [Mass/Vol] mg/L Normal <=1.0 [facility] Comment on above: Performed By: #### C RP #### [facility] [address] [place] [address] Dr. Estuardo Buchanan [facility] 11 mm/hr Normal <=20 [facility] Comment on above: Performed By: #### C BC #### [facility] [address] [place] [address] Dr. Estuardo Buchanan CBC AUTO DIFFon 06-19-2022 BASO # 0.1 103/ul Normal 0.0-0.1 [facility] Comment on above: Performed By: #### C BC #### [facility] [address] [place] [address] Dr. Estuardo Buchanan Basophils/100 WBC (Bld) 0.5 % Normal 0.2-2.0 [facility] Comment on above: Performed By: #### C BC #### [facility] [address] [place] [address] Dr. Estuardo Buchanan EO # 0.1 103/ul Normal 0.0-0.7 [facility] Comment on above: Performed By: #### C BC #### [facility] [address] [place] [address] Dr. Estuardo Buchanan Eosinophils/100 WBC (Bld) 0.5 % Critically low 0.9-7.0 [facility] Comment on above: Performed By: #### C BC #### [facility] [address] [place] [address] Dr. Estuardo Buchanan Erythrocyte distribution width (RBC) [Ratio] 13.8 % Normal 11.0-15.0 [facility] Comment on above: Performed By: #### C BC #### [facility] [address] [place] [address] Dr. Estuardo Buchanan Hematocrit (Bld) [Volume fraction] 45.9 % Normal 36.0-48.0 [facility] Comment on above: Performed By: #### C BC #### [facility] [address] [place] [address] Dr. Estuardo Buchanan Hemoglobin (Bld) [Mass/Vol] 14.9 g/dL Normal 12.0-16.0 [facility] Comment on above: Performed By: #### C BC #### [facility] [address] [place] [address] Dr. Estuardo Buchanan IG # 0.06 10e3/ul Critically high 0.00-0.03 [facility] Comment on above: Performed By: #### C BC #### [facility] [address] [place] [address] Dr. Estuardo Buchanan IG % 0.4 % Normal 0.0-0.5 [facility] Comment on above: Performed By: #### C BC #### [facility] [address] [place] [address] Dr. Estuardo Buchanan LYMPH # 3.4 103/ul Normal 1.2-3.8 [facility] Comment on above: Performed By: #### C BC #### [facility] [address] [place] [address] Dr. Estuardo Buchanan Lymphocytes/100 WBC (Bld) 22.2 % Normal 20.5-60.0 [facility] Comment on above: Performed By: #### C BC #### [facility] [address] [place] [address] Dr. Estuardo Buchanan MANUAL DIFF REQ NO Normal [facility] Comment on above: Performed By: #### C BC #### [facility] [address] [place] [address] Dr. Estuardo Buchanan MCH (RBC) [Entitic mass] 31.6 pg Normal 26.7-34.0 [facility] Comment on above: Performed By: #### C BC #### [facility] [address] [place] [address] Dr. Estuardo Buchanan MCHC (RBC) [Mass/Vol] 32.5 g/dL Normal 29.9-35.2 [facility] Comment on above: Performed By: #### C BC #### [facility] [address] [place] [address] Dr. Estuardo Buchanan MCV (RBC) [Entitic vol] 97.2 fL Normal 81.0-99.0 [facility] Comment on above: Performed By: #### C BC #### [facility] [address] [place] [address] Dr. Estuardo Buchanan MONO # 0.5 103/ul Normal 0.3-0.8 [facility] Comment on above: Performed By: #### C BC #### [facility] [address] [address] [address] Estuardo Buchanan Monocytes/100 WBC (Bld) 3.0 % Normal 1.7-12.0 [facility] Comment on above: Performed By: #### C BC #### [facility] [address] [address] [address] Estuardo Buchanan NEUT # 11.2 103/ul Critically high 1.4-6.5 [facility] Comment on above: Performed By: #### C BC #### [facility] [address] [place] [address] Dr. Estuardo Buchanan Neutrophils/100 WBC (Bld) 73.4 % Normal 43.0-75.0 [facility] Comment on above: Performed By: #### C BC #### [facility] [address] [place] [address] Dr. Estuardo Buchanan Platelet mean volume (Bld) [Entitic vol] 10.4 fL Normal 9.5-13.5 [facility] Comment on above: Performed By: #### C BC #### [facility] [address] [place] [address] Dr. Estuardo Buchanan PLT 294 103/ul Normal 150-450 [facility] Comment on above: Performed By: #### C BC #### [facility] [address] [place] [address] Dr. Estuardo Buchanan RBC 4.72 106/ul Normal 4.20-5.40 [facility] Comment on above: Performed By: #### C BC #### [facility] [address] [place] [address] Dr. Estuardo Buchanan WBC 15.2 103/ul Critically high 4.0-11.0 [facility] Comment on above: Performed By: #### C BC #### [facility] [address] [place] [address] Dr. Estuardo Buchanan GLYCOHEMOGLOBIN A1Con 2022 ADA RECOMMENDATION SEE BELOW Normal [facility] Comment on above: Result Comment: ADA RECOMMENDED LIMIT 4.0 - 6.0 ADA THERAPEUTIC TARGET < 7.0 ACTION SUGGESTED > 7.0 Performed By: #### A 1C #### [facility] [address] [address] [address] Estuardo Buchanan Glucose [Mass/Vol] 100 mg/dL Normal [facility] Comment on above: Performed By: #### A 1C #### [facility] [address] [address] [address] Estuardo Buchanan HbA1c (Bld) [Mass fraction] 5.1 % Normal 4.5-6.2 [facility] Comment on above: Performed By: #### A 1C #### [facility] [address] [address] [address] Estuardo Buchanan LIPID PROFILEon 06-19-2022 CHOL-HDL RATIO NORM SEE BELOW Normal [facility] Comment on above: Result Comment: 3.3 - 4.4 LOW RISK 4.4 - 7.1 AVERAGE RISK 7.1 - 11.0 MODERATE RISK >11.0 HIGH RISK Performed By: #### T SH, CMP, LIPID #### [facility] [address] [address] [address] Estuardo Buchanan Cholesterol [Mass/Vol] 199 mg/dL Normal <=200 [facility] Comment on above: Performed By: #### T SH, CMP, LIPID #### [facility] [address] [address] [address] Estuardo Buchanan Cholesterol in HDL [Mass/Vol] 50 mg/dL Normal 40-60 [facility] Comment on above: Performed By: #### T SH, CMP, LIPID #### [facility] [address] [address] [address] Estuardo Buchanan Cholesterol in LDL [Mass/Vol] 130.0 mg/dL Normal [facility] Comment on above: Performed By: #### T SH, CMP, LIPID #### [facility] [address] [place] [address] Dr. Estuardo Buchanan Cholesterol.total/Ch olesterol in HDL [Mass ratio] 4.0 {ratio} Normal [facility] Comment on above: Performed By: #### T SH, CMP, LIPID #### [facility] [address] [address] [address] Estuardo Buchanan HDL NORMAL > or = 60 mg/dl - LOW CARDIOVASCULAR RISK <40 mg/dl - HIGH CARDIOVASCULAR RISK Normal [facility] Comment on above: Performed By: #### T SH, CMP, LIPID #### [facility] [address] [address] [address] Estuardo Buchanan LDL CALC NORMAL SEE BELOW Normal [facility] Comment on above: Result Comment: <100 mg/dl OPTIMAL 100 - 129 mg/dl NEAR OR ABOVE OPTIMAL 130 - 159 mg/dl BORDERLINE HIGH 160 - 189 mg/dl HIGH >190 mg/dl VERY HIGH Performed By: #### T ARELIS, CMP, LIPID #### [facility] [address] [address] [address] Estuardo Buchanan Triglyceride [Mass/Vol] 95 mg/dL Normal <=150 [facility] Comment on above: Performed By: #### T ARELIS CMP, LIPID #### [facility] [address] [address] [address] Estuardo Buchanan VLDL CALC 19.0 mg/dL Normal [facility] Comment on above: Performed By: #### T ARELIS CMP, LIPID #### [facility] [address] [address] [address] Estuardo Buchanan PROF 14(COMP METB)on 023 Albumin [Mass/Vol] 4.2 g/dL Normal 3.4-5.0 [facility] Comment on above: Performed By: #### T ARELIS, CMP, LIPID #### [facility] [address] [place] [address] Dr. Estuardo Buchanan Albumin/Globulin [Mass ratio] 1.2 {ratio} Normal [facility] Comment on above: Performed By: #### T SH, CMP, LIPID #### [facility] [address] [place] [address] Dr. Estuardo Buchanan ALP [Catalytic activity/Vol] 60 U/L Normal 46-116 [facility] Comment on above: Performed By: #### T SH, CMP, LIPID #### [facility] [address] [address] [address] Estuardo Buchanan ALT [Catalytic activity/Vol] 35 U/L Normal 14-59 [facility] Comment on above: Performed By: #### T SH, CMP, LIPID #### [facility] [address] [address] [address] Estuardo Buchanan Anion gap [Moles/Vol] 9.5 mmol/L Normal [facility] Comment on above: Performed By: #### T SH, CMP, LIPID #### [facility] [address] [address] [address] Estuardo Buchanan AST [Catalytic activity/Vol] 20 U/L Normal 15-37 [facility] Comment on above: Performed By: #### T ARELIS CMP, LIPID #### [facility] [address] [place] [address] Dr. Estuardo Buchanan Bilirubin [Mass/Vol] 0.4 mg/dL Normal 0.2-1.0 [facility] Comment on above: Performed By: #### T ARELIS CMP, LIPID #### [facility] [address] [place] [address] Dr. Estuardo Buchanan Calcium [Mass/Vol] 9.7 mg/dL Normal 8.5-10.1 [facility] Comment on above: Performed By: #### T ARELIS CMP, LIPID #### [facility] [address] [place] [address] Dr. Estuardo Buchanan Chloride [Moles/Vol] 105 mmol/L Normal 98-107 [facility] Comment on above: Performed By: #### T ARELIS, CMP, LIPID #### [facility] [address] [place] [address] Dr. Estuardo Buchanan CO2 [Moles/Vol] 30.4 mmol/L Normal 21.0-32.0 [facility] Comment on above: Performed By: #### T ARELIS, CMP, LIPID #### [facility] [address] [place] [address] Dr. Estuardo Buchanan Creatinine [Mass/Vol] 0.82 mg/dL Normal 0.55-1.02 [facility] Comment on above: Performed By: #### T SH, CMP, LIPID #### [facility] [address] [address] [address] Estuardo Buchanan EGFR-AF BARBADIAN >60 Normal >=60 [facility] Comment on above: Performed By: #### T SH, CMP, LIPID #### [facility] [address] [address] [address] Estuardo Buchanan EGFR-NON AF BARBADIAN >60 Normal >=60 [facility] Comment on above: Performed By: #### T SH, CMP, LIPID #### [facility] [address] [address] [address] Estuardo Buchanan Globulin (S) [Mass/Vol] 3.6 g/dL Normal [facility] Comment on above: Performed By: #### T SH, CMP, LIPID #### [facility] [address] [address] [address] Estuardo Buchanan Glucose [Mass/Vol] 91 mg/dL Normal 74-106 [facility] Comment on above: Performed By: #### T SH, CMP, LIPID #### [facility] [address] [address] [address] Estuardo Buchanan Potassium [Moles/Vol] 4.9 mmol/L Normal 3.5-5.1 [facility] Comment on above: Performed By: #### T SH, CMP, LIPID #### [facility] [address] [address] [address] Estuardo Buchanan Protein [Mass/Vol] 7.8 g/dL Normal 6.4-8.2 [facility] Comment on above: Performed By: #### T SH, CMP, LIPID #### [facility] [address] [address] [address] Estuardo Buchanan Sodium [Moles/Vol] 140 mmol/L Normal 136-145 [facility] Comment on above: Performed By: #### T SH, CMP, LIPID #### [facility] [address] [address] [address] Estuardo Buchanan Urea nitrogen [Mass/Vol] 16.0 mg/dL Normal 7.0-18.0 [facility] Comment on above: Performed By: #### T SH, CMP, LIPID #### [facility] [address] [place] [address] Dr. Estuardo Buchanan Urea nitrogen/Creatinine [Mass ratio] 19.5 mg/mg Normal [facility] Comment on above: Performed By: #### T SH, CMP, LIPID #### [facility] [address] [place] [address] Dr. Estuardo Buchanan TSHon 06-19-2022 TSH 1.108 uIU/mL Normal 0.358-3.740 [facility] Comment on above: Performed By: #### T SH, CMP, LIPID #### [facility] [address] [place] [address] Dr. Estuardo Buchanan QUANTIFERON TB GOLD PLUSon 0 03-24-2022 QuantiFERON Criteria Comment Normal [facility] Comment on above: Result Comment: Eugene [...] test. Performed By: #### Q NTTB #### [facility] [address] [place] [address] Dr. Estuardo Buchanan QuantiFERON Incubation Incubation performed. Normal [facility] Comment on above: Performed By: #### Q NTTB #### [facility] [address] [place] [address] Dr. Estuardo Buchanan QuantiFERON Mitogen Value >10.00 Normal [facility] Comment on above: Performed By: #### Q NTTB #### [facility] [address] [place] [address] Dr. Estuardo Buchanan QuantiFERON Nil Value 0.02 IU/mL Normal [facility] Comment on above: Performed By: #### Q NTTB #### [facility] [address] [place] [address] Dr. Estuardo Buchanan QuantiFERON TB1 Ag Value 0.03 IU/mL Normal [facility] Comment on above: Performed By: #### Q NTTB #### [facility] [address] [place] [address] Dr. Estuardo Buchanan QuantiFERON TB2 Ag Value 0.03 IU/mL Normal [facility] Comment on above: Performed By: #### Q NTTB #### [facility] [address] [place] [address] Dr. Estuardo Buchanan QuantiFERON-TB Gold Plus Negative Normal Negative [facility] Comment on above: Result Comment: No r esponse to M tuberculosis antigens detected. Infection with M tuberculosis is unlikely, but high risk individuals should be considered for additional testing (ATS/IDSA/CDC Clinical Practice Guidelines, 2017). The reference range is an Antigen minus Nil result of <0.35 IU/mL. Chemiluminescence immunoassay methodology Performed By: #### Q NTTB #### [facility] [address] [place] [address] Dr. Estuardo Buchanan HEPATITIS B SURFACE ANTIBODY , QUANTon 03-23-2022 Hepatitis B Surf AB Quant 279.6 mIU/mL Normal Immunity>9.9 [facility] Comment on above: Result Comment: Stat us of Immunity Anti-HBs Level Inconsistent with Immunity 0.0 - 9.9 Consistent with Immunity >9.9 Performed By: #### C BC #### [facility] [address] [place] [address] Dr. Estuardo Buchanan MMR IMMUNITYon 03-23-2022 Mumps Abs, IgG 120.0 AU/mL Normal Immune >10.9 [facility] Comment on above: Result Comment: Nega tive <9.0 Equivocal 9.0 - 10.9 Positive >10.9 A positive result generally indicates past exposure to Mumps virus or previous vaccination. Performed By: #### C BC #### [facility] [address] [place] [address] Dr. Estuardo Buchanan Rubella Antibodies, IgG 1.53 index Normal Immune >0.99 [facility] Comment on above: Result Comment: Non- immune <0.90 Equivocal 0.90 - 0.99 Immune >0.99 Performed By: #### C BC #### [facility] [address] [place] [address] [id number] [address] Estuardo Buchanan Rubeola Ab, IgG 128.0 AU/mL Normal Immune >16.4 [facility] Comment on above: Result Comment: Nega tive <13.5 Equivocal 13.5 - 16.4 Positive >16.4 Presence of antibodies to Rubeola is presumptive evidence of immunity except when acute infection is suspected. Performed By: #### C BC #### [facility] [address] [place] [address] Dr. Estuardo Buchanan VARICELLA IGG ABon 3 Varicella Zoster IgG 723 index Normal Immune >165 [facility] Comment on above: Result Comment: Nega tive <135 Equivocal 135 - 165 Positive >165 A positive result generally indicates exposure to the pathogen or administration of specific immunoglobulins, but it is not indication of active infection or stage of disease. Performed By: #### C BC #### [facility] [address] [place] [address] Dr. Estuardo Buchanan Vital Signs Date Time Vital Sign Value Performing Clinician Faci lity 12-10-2023 [id number] Body height 162.6 cm Dante Harrison MD Work Phone: [facility] 12-10-2023 13:28-040 Body mass index (BMI) [Ratio] 33.81 kg/m2 Dante Harrison MD Work Phone: [facility] 12-10-2023 13:040 Body temperature 97.3 [degF] Dante Harrison MD Work Phone: [facility] 12-10-2023 13:28-040 Body weight 89.36 kg Dante Harrison MD Work Phone: [facility] 12-10-2023 13:28-040 Diastolic blood pressure 76 mm[Hg] Dante Harrison MD Work Phone: [facility] 12-10-2023 13:28-040 Heart rate 87 /min Dante Harrison MD Work Phone: [facility] 12-10-2023 13:28-0400 SaO2% (BldA) [Mass fraction] 98 % Dante Harrison MD Work Phone: [facility] 12-10-2023 13:28-0400 Systolic blood pressure 122 mm[Hg] Dante Harrison MD Work Phone: [facility] Healthcare Encounters Encounter Date Encounter Type Care Provider Facility Start: 12-10-2023 End: 12-10-2023 Bamboo flowsheet Dante Harrison MD Work Phone: [facility] Start: 12-10-2023 End: 12-10-2023 AI Merchantheet Dante Harrison MD Work Phone: [facility] Start: 12-10-2023 End: 12-10-2023 Office outpatient visit 25 minutes Dante Harrison MD Work Phone: [facility] Comment on above: ADD (attention defic it disorder) without hyperactivity (Primary Dx); MDD (major depressive disorder), recurrent episode, mild (HCC) (CMS/HCC); Primary insomnia; Bilateral primary osteoarthritis of hip Start: 12-10-2023 End: 12-10-2023 ambulatory DANTE HARRISON Not Available Start: 07-23-2023 End: 07-23-2023 ambulatory KATIE IGLESIAS Not Available Start: 07-02-2023 Patient encounter procedure Dante Harrison MD Work Phone: [facility] Start: 07-02-2023 End: 07-02-2023 ambulatory DANTE HARRISON Not Available Start: 10-08-2022 End: 10-08-2022 ambulatory [facility] Start: 09-25-2022 End: 09-26-2022 ambulatory [facility] Start: 09-25-2022 End: 09-26-2022 Evaluation and management of inpatient [facility] Start: 09-12-2022 End: 09-13-2022 ambulatory [facility] Start: 09-12-2022 End: 09-12-2022 ambulatory [facility] Start: 09-06-2022 End: 09-07-2022 ambulatory [facility] Start: 07-11-2022 ambulatory MERVAT LUIY . Facility:[facility] Start: 07-09-2022 End: 07-09-2022 ambulatory MERVAT BROWN . Facility:[facility] Start: 07-04-2022 End: 07-05-[address] DANTE HARRISON Facility:[facility] Start: 06-23-2022 Encounter for genera l adult medical examination without abnormal findings DR DANTE HARRISON [facility] Start: 06-19-2022 End: 06-20-[address] DANTE HARRISON Facility:[facility]1 Start: 06-19-2022 End: 06-20-2022 Encounter for general adult medical examination without abnormal findings DR DANTE HARRISON Facility:[facility] Start: 04-18-2022 End: 04-19-2022 ambulatory MERVAT BROWN . Facility:[facility] Start: 04-16-[address] GUILLERMO ARCHIBALD . Faci lity:[facility]1 Start: 03-22-2022 End: 03-23-2022 ambulatory NUSRAT LIAO Facility:[facility]1 Procedures Date Procedure Procedure Detail Performing Clinician Start: 08-19-2023 Colonoscopy Dante strauss MD Work Phone: Start: 08-01-2023 Mammography Dante strauss MD Work Phone: Plan of Treatment Date Care Activity Detail Author Start: 08-18-2033 Screening for malign ant neoplasm of colon [facility] Start: 07-31-2024 Screening for malign ant neoplasm of breast Mammogram [facility] Start: 12-10-2023 End: 12-10-2023 Patient encounter procedure 12/10/2023 1:15 PM EDT Office Visit [facility] [address] [place] [address] Dante Harrison MD [address] [place] [id number] Arrived [facility] Comment on above: Arrived Start: 10-26-2023 Influenza vaccination Influenza Vacc ine (#1) [facility] Start: 01-22-2008 Screening for malign ant neoplasm of cervix HPV/Cotest [facility] Start: 1999 Screening for malign ant neoplasm of cervix Pap Smear [facility] Start: 1978 Screening for malign ant neoplasm of colon [facility] Payers Date Payer Category Payer [facility] [id number] 1978 Unknown [id number] 1978 Unknown [id number] 1978 Unknown [id number] 1978 Unknown [id number] 1978 Unknown [id number] 1978 Unknown [id number] 1978 Unknown [id number] 1978 Unknown [id number] .[id number] 1978 Unknown [id number] 1959 Self-pay [id number] 1959 Unknown [id number] Unknown [id number] Social History Date Type Detail Facility Start: 07-23-2023 Tobacco smoking status NHIS Smokes t obacco daily [facility] History of tobacco use Cigarette Smoker [facility] Start: 07-23-2023 End: 12-04-2023 Cigarettes smoked current (pack per day) - Reported 0.5 [facility] Start: 07-23-2023 Tobacco use and exposure Smoke less tobacco non-user [facility] Start: 07-23-2023 End: 12-10-2023 Alcoholic beverage intake Ex-drinker (finding) [facility] Start: 07-02-2023 End: 12-04-2023 [id number] Health Literacy [facility] How often do you nee d to have someone help you when you read instructions, pamphlets, or other written material from your doctor or pharmacy [SILS] Never [facility] Do you belong to any clubs or organizations such as judaism groups, unions, fraternal or athletic groups, or school groups? Yes [facility] Are you now , , , , never or living with a partner? [facility] How often to you hav e a drink containing alcohol? 2-4 times a month [facility] How many standard dr inks containing alcohol do you have on a typical day? 3 or 4 [facility] How often do you hav e 6 or more drinks on 1 occasion? Never [facility] How hard is it for y ou to pay for the very basics like food, housing, medical care, and heating Not very hard [facility] Do you feel stress - tense, restless, nervous, or anxious, or unable to sleep at night because your mind is troubled all the time - these days [OSQ] To some extent [facility] (I/We) worried wheth er (my/our) food would run out before (I/we) got money to buy more. Never true [facility] In the past 12 month s, was there a time when you were not able to pay the mortgage or rent on time? No [facility] Start: 1980 Sex assigned at Not on file [facility] Clinical Notes 04-18-2022 to 12-10-2023 Dante Harrison MD - 12/10/2023 2:31 PM EDYecenia Harrison MD - 12/10/2023 2:30 PM Mercedes Harrison MD - 12/10/2023 2:30 PM Mercedes Harrison MD - 12/10/2023 2:29 PM EDT Note Date & Type Note Facility 12-10-2023 History of Present illness Narrative Associated Problem(s): Primary insomnia Not sleeping well and try trazodone. Associated Problem(s): MDD (major depressive disorder), recurrent episode, mild (HCC) (CMS/HCC) Symptoms controlled with celexa and continue. Associated Problem(s): Bilateral primary osteoarthritis of hip Pain getting worse and x-rays showed OA. Continue OTC and increase activity. Associated Problem(s): ADD (attention deficit disorder) without hyperactivity Doing well with adderall but shortage and try focalin. Images from the original note were not included. Subjective Patient ID: Laney Kim is a 43 y.o. female who presents for Follow-up (Discuss meds). Follow up ADD, depression, and pain. Started adderall and doing well. Notice more focused and able to complete tasks. More organized and not distracted. Tolerating medication without side effects. Having a hard time finding medication due to national shortage. Depression controlled with celexa. Not down or sad and feels happier. Still stress but handling well. C/o not sleeping well. Hard time falling asleep or staying asleep. OTC not helping. C/o increased pain in hips for months. Prior x-ray showed OA. Pain worse in right hip. Pain in outer hip and down thigh when severe. Using OTC PRN and mild relief. Review of Systems Respiratory: Negative for cough, shortness of breath and wheezing. Cardiovascular: Negative for chest pain and palpitations. Gastrointestinal: Negative for abdominal pain, diarrhea, nausea and vomiting. Genitourinary: Negative for dysuria. Objective Physical Exam Constitutional: General: She is not in acute distress. Appearance: Normal appearance. HENT: Head: Normocephalic. Right Ear: Tympanic membrane normal. Left Ear: Tympanic membrane normal. Eyes: Extraocular Movements: Extraocular movements intact. Pupils: Pupils are equal, round, and reactive to light. Cardiovascular: Rate and Rhythm: Normal rate and regular rhythm. Heart sounds: No murmur heard. No friction rub. No gallop. Pulmonary: Effort: Pulmonary effort is normal. Breath sounds: Normal breath sounds. No wheezing, rhonchi or rales. Abdominal: General: Bowel sounds are normal. There is no distension. Palpations: Abdomen is soft. Tenderness: There is no abdominal tenderness. There is no guarding or rebound. Musculoskeletal: Cervical back: Neck supple. Right lower leg: No edema. Left lower leg: No edema. Neurological: Mental Status: She is alert. Assessment/Plan Problem List Items Addressed This Visit MDD (major depressive disorder), recurrent episode, mild (HCC) (CMS/HCC) Symptoms controlled with celexa and continue. ADD (attention deficit disorder) without hyperactivity - Primary Doing well with adderall but shortage and try focalin. Relevant Medications dexmethylphenidate XR (Focalin XR) 20 MG 24 hr capsule Primary insomnia Not sleeping well and try trazodone. Relevant Medications traZODone (Desyrel) 50 MG tablet Bilateral primary osteoarthritis of hip Pain getting worse and x-rays showed OA. Continue OTC and increase activity. documented in this encounter [facility] 10-08-2022 Note SUBJECTIVE: Chief complaint: Postoperative visit. [...] or sooner if new or worsening problems. [facility] 10-08-2022 Note Subjective: HPI: Mrs. Kim [...] all other extremities. 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 Assessment: Mrs. Kim had an L4 laminotomy to treat a lumbar disc prolapse with compression radiculopathy that caused chronic leg and back pain. Plan: See physical therapist for leg exercises. Follow-up with neurosurgery clinic in 1 month. Kim Dhillon, MS3 [facility] 09-26-2022 Note Neurosurgery Progres s Note [...] Output by Drain (mL) 09/24/22 07 - 09/24/22185809/24/221899 - 09/25/22 0659 09/25/22699 - 09/25/22185809/25/22 1900 - 09/26/22 0659 09/26/22 07 - 09/26/22 1031 Patient has no LDAs [...] discharge criteria. Will plan for home today. [facility] 09-26-2022 Note Occupational Therapy Occupational Therapy Evaluation Patient Name: Laney Kim : 1980 Today's Date: 09/26/2022 Time [...] Level of Function Prior Function Level of [place]: Independent with ADLs and functional transfers, Independent [...] Eating meals?: None (Independent) Total Score OT [facility]: 24 Assessment/Plan OT Assessment OT Education/Comments: extensive discussion regarding general home safety with new BLT precautions with good verbal teach back Plan OT Plan: No skilled OT OT Discharge Recommendations: Home Equipment Recommended: (none) OT - Discharge Recommendations Placed: Yes OT Goals Multi-Disciplinary Problems (from Occupational Therapy) Active Problems Not on file [facility] 09-26-2022 Note Physical Therapy Physical Therapy Evaluation Patient Name: Laney Kim : 1980 Today's Date: 09/26/2022 Session time: [phone] Present hx: Reports chronic low back pain [...] mobility techniques. Verbalizes and demo's understanding. RN ok's session; reports pt has been wanting to [...] Level of Function Prior Function Level of [place]: Independent with ADLs and functional transfers, Independent [...] the LLE Pr (more content not included)... [facility] 09-26-2022 Note Progress note: The patient reports experiencing pain relief after spinal decompression procedure. The patient is alert and oriented. The patient has been able to ambulate post-op. Kim Dhillon, Medical Student [facility] 09-25-2022 Note Patient: Laney larsen Procedure Summary Date: 09/25/22 Room / Location: [facility] OPERATING ROOM 03 / [facility] Operating Room Anesthesia Start: 1049 Anesthesia [...] per anesthesia protocol. No notable events documented. [facility] 09-25-2022 Note Airway Date/Time: 09/25/2022 11:05 AM Urgency: elective Airway not difficult General Information and Staff Patient location during procedure: OR Anesthesiologist: Marco Abdi MD Resident/KNIT GOODS PRESS HAND/CAA: LE Oh Performed: resident/KNIT GOODS PRESS HAND/CAA Indications and Patient Condition Indications for airway [...] 1 Number of other approaches attempted: 0 [facility] 09-25-2022 Note Patient: Laney larsen Procedure Information Date/Time: 09/25/22 1030 Procedure: L4 laminotomies with L4-L5 discectomy - 1.5 hours, C arm, prone on open Ernst, downpushing curettes Location: [facility] OPERATING ROOM 03 / [facility] Operating Room Surgeons: Jenny Snell MD [...] Plan discussed with CAA. Additional Equipment Requests [facility] 09-13-[address] Snell case. Diagnosis: Lumbar disc prolapse with radiculopathy. Procedure: L4 laminotomies, L4-L5 discectomy. Time 1.5 hours. Prone on open Ernst. Need C arm and downpushing curettes. [facility] 09-12-2022 Note SUBJECTIVE: Chief complaint: Chronic [...] several years. Currently seeing pain management at [facility] and has had injections without lasting [...] right C6, C8 (more content not included)... [facility] 04-18-2022 Note PAIN MANAGEMENT CONS ULTATION [...] wished to proceed with the plan. [facility] Evaluation note Diagnosis Annual physical exam- Primary Routine general medical examination at a health care facility Breast cancer screening by mammogram DDD (degenerative disc disease), lumbar Degeneration of lumbar or lumbosacral intervertebral disc Colon cancer screening Special screening for malignant neoplasms, colon ADD (attention deficit disorder) without hyperactivity- Primary Attention deficit disorder without mention of hyperactivity MDD (major depressive disorder), recurrent episode, mild (HCC) (CMS/HCC) Primary insomnia Persistent disorder of initiating or maintaining sleep Bilateral primary osteoarthritis of hip documented in this encounter [facility] Summary Purpose Family History No Family History Records FoundNo Family History Records FoundNo Family History Records Found Advance Directives No Advanced Directives Records FoundNo Advanced Directives Records FoundNo Advanced Directives Records Found Additional Source Comments INFORMATION SOURCE (unrecogn ized section and content) DATE CREATED AUTHOR 07/10/2022 [facility] DATE CREATED AUTHOR AUTHOR'S ORGANIZ ATION 10/12/2022 [facility] DATE CREATED AUTHOR AUTHOR'S ORGANIZ ATION 12/12/2023 [facility] Care Teams (unrecognized sec tion and content) Education Dean Relationship Specialty Start Date End Date Dante Harrison MD [address] [place] [address] PCP - General Family Medicine 06/30/23 Education Dean Relationship Specialty Start Date End Date Dante Harrison MD [address] [place] [address] PCP - General Family Medicine 06/30/23 Reason for Visit (unrecogniz ed section and content) Reason Comments Follow-up Discuss meds FOR RECORDS PERTAINING TO PATIENTS WHO ARE [...] BE BASED ON THE PRIMARY CLINICAL RECORDS. [facility]. provides no warranty or guarantee of the accuracy or completeness of information in this document.
[2023-12-23 16:47] LABS: INR 0.97; Prothrombin Time 10.3 sec (9.0-11.6)
== END 2023-12-23 19:12 | disposition left against medical advice (07) ==
LOC: ER 16:09
PROVIDERS: Physician Assistant; Emergency Provider Emergency Medicine Emergency Medical Services; PCP Family Medicine
DX: R10.9 Unspecified abdominal pain (principal); Z87.442 Personal history of urinary calculi; Z90.49 Acquired absence of other specified parts of digestive tract; Z90.710 Acquired absence of both cervix and uterus; F17.200 Nicotine dependence, unspecified, uncomplicated
CPT/HCPCS: 36415; 74176; 80053; 81003; 83605; 85025; 85610; 96374; 96375; 99285; J1171; J1885; J2405